=== PATIENT | female | born 1935 | race African-American/Black ===

== ENCOUNTER → 2017-08-24 | Outpatient (CLI) | payer MEDICARE, OTHER ==
--- NOTE | 2017-08-24 14:48 | RADIOLOGY REPORT (SQ) ---
EXAM DESCRIPTION: CT CHEST WITHOUT COMPLETED DATE/TIME: 08/24/2017 10:21 am REASON FOR STUDY: R07.9 CHEST PAIN Z87.891 PERSONAL HISTORY OF NICOTINE DEPENDENCE J44.9 CHRONIC O BSTRUCTIVE PULMONARY DISEASE, UNSPECIFIED Z12.2 ENCNTR SCREEN FOR MALIGNANT NEOPLASM OF RESPIRATORY OR COMPARISON: CT chest 11/13/2014, 02/07/2014 TECHNIQUE: CT scan performed of the chest without intravenous contrast. Images reviewed with lung, soft tissue and bone windows. Reconstructed coronal and sagittal MPR images reviewed. All images st ored on PACS. All CT scanners at this facility use dose modulation, iterative reconstruction, and/or weight based d osing when appropriate to reduce radiation dose to as low as reasonably achievable (ALARA). [facility]: Dose Right [facility]: CareDose [facility]: Dose Right [facility]: Teradose 4D [facility]: Smart Modern Feed RADIATION DOSE: CT Rad equipment meets quality standard of care and radiation dose reduction techniq ues were employed. CTDIvol: 5.8 mGy. DLP: 233 mGy-cm. mGy. LIMITATIONS: No technical limitations. 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 This is unchanged from prior CT chest exams 11/13/2014 and 02/07/2014. No acute infiltrates. No pleural effusions. No pneumothorax. HILAR AND MEDIASTINAL STRUCTURES: No identified masses or abnormal nodes. No obvious aneurysm. HEART AND VASCULAR STRUCTURES: Ascending aorta 4.4 cm in diameter. Calcified aortic valve. Findings could indicate aortic stenosis and poststenotic dilatation. Findings are similar compared to prior studies UPPER ABDOMEN: No significant findings. Limited exam. THYROID AND OTHER SOFT TISSUES: No masses. No adenopathy. BONES: T8-9 disc space narrowing. No thoracic spine compression deformities HARDWARE: None in the chest. OTHER: No other significant findings. IMPRESSION: Calcified aortic valve with prominent ascending aorta. Findings could be seen in aortic stenosis. TECHNICAL DOCUMENTATION: JOB ID: [id number] Quality ID # [id number]: Final reports with documentation of one or more dose reduction techniques (e.g., Au tomated exposure control, adjustment of the mA and/or kV according to patient size, use of iterative reconstruction technique) 2010 [employer]- All Rights Reserved
== END ==
LOC: RAD 10:51
PROVIDERS: ATTEND Internal Medicine
DX: Z12.2 Encounter for screening for malignant neoplasm of respiratory organs (principal); R07.9 Chest pain, unspecified; Z87.891 Personal history of nicotine dependence
CPT/HCPCS: 71250

== ENCOUNTER 2018-06-29 11:42 | Day surgery (SDC) | payer MEDICARE ==
[2018-06-28 10:55] LABS: ABSOLUTE BASOPHILS # (AUTO) 0.1 10^3/uL (0.0-0.2); ABSOLUTE EOSINOPHILS # (AUTO) 0.4 10^3/uL (0.0-0.6); ABSOLUTE LYMPHOCYTES (AUTO) 2.1 10^3/uL (0.5-4.7); ABSOLUTE NEUT (AUTO) 6.1 10^3/uL (1.7-8.2); BASOPHILS % (AUTO) 0.7 % (0-2); EOSINOPHILS % (AUTO) 4.2 % (0-6); HEMATOCRIT 35.3 % (36.0-47.0); HEMOGLOBIN 11.6 g/dL (12.0-15.5); LYMPHOCYTES % (AUTO) 21.7 % (13-45); MEAN CORPUSCULAR HEMOGLOBIN 25.7 pg (27.0-33.4); MEAN CORPUSCULAR HGB CONC 32.8 g/dL (32.0-36.0); MEAN CORPUSCULAR VOLUME 78 fl (80-97); PLATELET COUNT 269 10^3/uL (150-450); RED CELL DISTRIBUTION WIDTH 15.5 % (11.5-14.0); SEGMENTED NEUTROPHILS % (AUTO) 63.4 % (42-78); TOTAL CELLS COUNTED % (AUTO) 100 %; WHITE BLOOD COUNT 9.6 10^3/uL (4.0-10.5)
[2018-06-28 11:19] LABS: ANION GAP 10 (5-19); BLOOD UREA NITROGEN 19 mg/dL (7-20); CALCIUM 10.4 mg/dL (8.4-10.2); CARBON DIOXIDE 32 mmol/L (22-30); CHLORIDE 97 mmol/L (98-107); GLUCOSE 103 mg/dL (75-110); POTASSIUM 3.7 mmol/L (3.6-5.0); SODIUM 138.7 mmol/L (137-145)
--- NOTE | 2018-06-28 22:00 | EKG REPORT ---
SEVERITY:- BORDERLINE ECG - SINUS RHYTHM ATRIAL PREMATURE COMPLEX BORDERLINE T WAVE ABNORMALITIES : Confirmed by: Colby Carlisle 28-Jun-2018 21:59:47
[~2018-06-29 11:42] MED LIST: ALBUTEROL SULFATE 0.083% NEB 2.5 MG/3 ML AMPUL NEB PRN; LACTATED RINGERS 1000 ML IV PRN; LIDOCAINE 0.5% INJ-PF (5 MG/ML) 50 ML SDV SUBCUT PRN
[2018-06-29] MEDS ORDERED: CEFAZOLIN 2 GM/D5W RTU 2 GM/50 ML RTUPB IV ONE (12:07)
--- NOTE | 2018-06-29 12:16 | RADIOLOGY REPORT (SQ) ---
EXAM DESCRIPTION: CHEST SINGLE VIEW COMPLETED DATE/TIME: 06/29/2018 12:04 pm REASON FOR STUDY: PREOP COMPARISON: 04/15/2016. EXAM PARAMETERS: NUMBER OF VIEWS: One view. TECHNIQUE: Single frontal radiographic view of the chest acquired. RADIATION DOSE: NA LIMITATIONS: None. FINDINGS: LUNGS AND PLEURA: Questionable faint 1 cm nodule in the right upper lobe, overlapping the posterior right 4th rib. Otherwise clear. No infiltrates. No pleural effusion or pneumothorax. MEDIASTINUM AND HILAR STRUCTURES: No masses. Contour normal. HEART AND VASCULAR STRUCTURES: Heart normal in size. Normal vasculature. BONES: No acute findings. HARDWARE: None in the chest. OTHER: No other significant finding. IMPRESSION: NO ACUTE RADIOGRAPHIC FINDING IN THE CHEST. THERE IS A QUESTIONABLE NODULE IN THE RIGHT UPPER LOBE. CONSIDER FOLLOW-UP WITH CT OF THE CHEST. TECHNICAL DOCUMENTATION: JOB ID: [id number] [employer]- All Rights Reserved Reading location - IP/workstation name: [email or web address]
[2018-06-29] MEDS ORDERED: LIDOCAINE 1% INJ-PF (10 MG/ML) 30 ML SDV ONE (13:16)
[2018-06-29] MEDS ORDERED: BUPIVACAINE HCL 0.5 % INJ/PF 30 ML SDV ONE (13:16)
[2018-06-29] MEDS ORDERED: FENTANYL CITRATE INJ/PF 100 MCG/2 ML AMPUL ONE (13:22)
[2018-06-29] MEDS ORDERED: MIDAZOLAM 2 MG/2 ML INJ ONE (13:22)
[2018-06-29] MEDS ORDERED: PROPOFOL INJ 200 MG/20 ML VIAL IV ONE (13:22)
[2018-06-29] MEDS ORDERED: FENTANYL CITRATE INJ/PF 100 MCG/2 ML AMPUL IV PRN ×3 (13:40)
[2018-06-29] MEDS ORDERED: DIPHENHYDRAMINE HCL 50 MG/ML VIAL IV PRN (13:40)
[2018-06-29] MEDS ORDERED: ONDANSETRON HCL INJ/PF 4 MG/2 ML SDV IV PRN ×2 (13:40→14:09)
[2018-06-29] MEDS ORDERED: HYDROCODONE/ACETAMINOPHEN 5-325 MG TABLET PO PRN (14:09)
--- NOTE | 2018-06-29 14:11 | Discharge Summary ---
Discharge Summary (SDC) - Discharge Final Diagnosis: Right carpal tunnel syndrome, middle trigger finger Date of Surgery: 06/29/18 Discharge Date: 06/29/18 Condition: Good Treatment or Instructions: Schedule Follow Up w/ Dr. Gio Callahan @ [facility] for Surgery to be seen in 10-14 days or as scheduled [place]: [place]: Bruce: May remove dressing on postop day #3, keep incision covered and dry. Ice and elevate May begin finger range of motion attempting to make full fist. Stool softener of choice when on pain medication. Prescriptions: Hydrocodone/Acetaminophen [[place] 5-325 mg Tablet] 1 tab PO Q6 PRN #20 tablet PRN Reason: Referrals: BIA CASTANEDA MD [Primary Care Provider] - Discharge Diet: As Tolerated Discharge Activity: No Lifting Over 10 Pounds, No Lifting/Push/Pulling Report the Following to Your Physician Immediately: Fever over 101 Degrees, Unusual Bleeding, Redness, Swelling, Warmth, Increased Soreness
--- NOTE | 2018-06-29 14:11 | Operative Report ---
Operative Report DATE OF SURGERY: 06/29/18 PREOPERATIVE DIAGNOSIS: Right carpal tunnel syndrome, middle trigger finger POSTOPERATIVE DIAGNOSIS: Same OPERATION: Right endoscopic carpal tunnel release. Right middle A1 ann marie release SURGEON: PETRA WALTERS ANESTHESIA: LMAC COMPLICATIONS: None ESTIMATED BLOOD LOSS: Minimal PROCEDURE: Indication for above procedure: Patient presented with numbness and tingling in the right hand along with catching and locking in the right middle finger. We discussed risks and benefits patient had electrodiagnostic testing evidence of carpal tunnel syndrome. We discussed treatment options including continued conservative management versus operative intervention given the severity of patient's symptoms decision was made to proceed with operative treatment. Procedure In Detail: Patient was seen and evaluated in the preoperative holding area. The RIGHT upper extremity was initialized and marked. Patient received Ancef IV for bacterial prophylaxis. Patient was taken back to the operative room where transferred operative table. Patient was then placed under MAC anesthesia. Once adequately anesthetized, a nonsterile tourniquet was placed on the upper extremity. A surgical team debriefing was performed ensuring all instrumentation was available, the surgical procedure was discussed with possible concerns reviewed. Skin was prepped with alcohol and 10cc of 1% lidocaine without epinephrine was injected locally and w/in carpal canal. The upper extremity was prepped with chlorhexidine and alcohol and draped in a sterile fashion. A timeout was done identifying correct patient, procedure and extremity everyone in attendance agree with this and verbalized no concerns.The extremity was then exsanguinated the tourniquet was inflated to 250 mmHg. A transverse skin incision was made just proximal to the wrist flexion crease ulnar to the palmaris longus. Blunt dissection was performed down to the palmaris longus tendon which was retracted radially. Deep to the palmaris longus tendon was the volar carpal ligament this was incised identifying the median nerve deep. With the use of a Howe elevator any soft tissue/synovium was freed from the undersurface of the transverse carpal ligament. The hook of hamate was identified ulnarly. The ConMed cannulas were then introduced beginning with #1 progressing to a #3 gently dilating the carpal canal. I then introduced the scope within the cannula and identified transverse carpal ligament ensuring the median nerve was not visualized within the cannula. I triangulated distally with a 25-gauge needle identifying the distal aspect of the transverse carpal ligament, to ensure protection of the superficial palmar arch. The arthroscopic knife was used to incise the transverse carpal ligament under direct visualization with the arthroscopic camera. Any excess transverse fibers that remained after the first past were carefully released with a repeat pass. The median nerve was then directly visualized radially without disruption. Once this was completed I placed the #3 dilator and assured I got complete release of the transverse carpal ligament without residual compression. The median nerve was directly visualized and free of any overlying compression. I then turned my attention to release of the volar antebrachial fascia proximally. Once again a Howe was used to open the wound and I proceeded with cannula #1 to #3. The arthroscope was introduced into the cannula and under direct visualization the volar antebrachial fascia was released. Once this was complete I copiusly irrigated the wound with normal saline. Skin was closed with interrupted 4-0 nylon suture. Longitudinal skin incision was made centered over the A1 ann marie of the Middle finger. The radial and ulnar neurovascular bundles were identified and retracted from the wound. The A1 ann marie was identified and incised. The A1 ann marie was released to the level of the A2 ann marie but not through the A2 ann marie. The palmar aponeurotic ann marie was released proximal to the A1 ann marie. Patient has evidence of significant fraying along the radial slip of the FDS. Thus the radial slip of the FDS was then resected. After completion there is no evidence of residual catching or locking.. The wound was then copiously irrigated with normal saline. Skin was closed with interrupted 4-0 nylon suture. Wound was dressed with Xeroform and a soft dressing. Sponge counts, instrument counts, needle counts counts were correct. Patient was then awoken from anesthesia. Transferred from the operating room table to the operating room stretcher. There was no intraoperative complications patient tolerated procedure well stable to PACU. Postoperative plan: Patient will follow-up as scheduled for wound check. They will call with any questions or concerns.
[2018-06-29] MEDS ORDERED: HYDROCODONE/ACETAMINOPHEN 5-325 MG TABLET ONE (14:44)
[2018-06-29 16:03] VITALS: BP 166/93
== END 2018-06-29 15:55 | disposition home or self-care (01) ==
LOC: OROUT 11:42
PROVIDERS: ATTEND Orthopaedic Surgery
DX: G56.01 Carpal tunnel syndrome, right upper limb (principal); M65.331 Trigger finger, right middle finger; M79.641 Pain in right hand; J45.909 Unspecified asthma, uncomplicated; I10 Essential (primary) hypertension; F17.210 Nicotine dependence, cigarettes, uncomplicated; Z79.899 Other long term (current) drug therapy; Z79.51 Long term (current) use of inhaled steroids
CPT/HCPCS: 93005; 36415; 85025; 80048; 71045; 93010; 29848; 26055; J2250; J3490 ×2; J3010; J2704; J0690; 1810

== ENCOUNTER 2018-07-22 12:23 | Emergency (ER) | payer MEDICARE ==
--- NOTE | 2018-07-22 13:58 | RADIOLOGY REPORT (SQ) ---
EXAM DESCRIPTION: WRIST LEFT 3 VIEWS COMPLETED DATE/TIME: 07/22/2018 1:48 pm REASON FOR STUDY: pain and swelling COMPARISON: None. NUMBER OF VIEWS: Three views. TECHNIQUE: AP, lateral, and oblique radiographic images acquired of the left wrist. LIMITATIONS: None. FINDINGS: MINERALIZATION: Osteopenia. BONES: Widening of the scapholunate distance. No definitive fracture. Degenerative changes of the 1 st metacarpal carpal joint. SOFT TISSUES: No soft tissue swelling. No foreign body. OTHER: No other significant finding. IMPRESSION: No fracture. Suspect ligamentous injury of the scapholunate ligament. TECHNICAL DOCUMENTATION: JOB ID: [id number] [employer]- All Rights Reserved Reading location - IP/workstation name: [email or web address]
[2018-07-22 14:00] LABS: ABSOLUTE BASOPHILS # (AUTO) 0.1 10^3/uL (0.0-0.2); ABSOLUTE EOSINOPHILS # (AUTO) 0.2 10^3/uL (0.0-0.6); ABSOLUTE LYMPHOCYTES (AUTO) 1.7 10^3/uL (0.5-4.7); ABSOLUTE MONOCYTES (AUTO) 1.4 10^3/uL (0.1-1.4); BASOPHILS % (AUTO) 0.7 % (0-2); EOSINOPHILS % (AUTO) 1.5 % (0-6); HEMATOCRIT 33.9 % (36.0-47.0); HEMOGLOBIN 11.3 g/dL (12.0-15.5); LYMPHOCYTES % (AUTO) 13.9 % (13-45); MEAN CORPUSCULAR HEMOGLOBIN 25.1 pg (27.0-33.4); MEAN CORPUSCULAR HGB CONC 33.2 g/dL (32.0-36.0); MEAN CORPUSCULAR VOLUME 76 fl (80-97); MONOCYTES % (AUTO) 11.3 % (3-13); PLATELET COUNT 399 10^3/uL (150-450); RED BLOOD COUNT 4.48 10^6/uL (3.72-5.28); RED CELL DISTRIBUTION WIDTH 14.6 % (11.5-14.0); SEGMENTED NEUTROPHILS % (AUTO) 72.6 % (42-78); TOTAL CELLS COUNTED % (AUTO) 100 %; WHITE BLOOD COUNT 12.4 10^3/uL (4.0-10.5)
--- NOTE | 2018-07-22 14:00 | RADIOLOGY REPORT (SQ) ---
EXAM DESCRIPTION: KNEE RIGHT 4 VIEWS COMPLETED DATE/TIME: 07/22/2018 1:48 pm REASON FOR STUDY: pain and swelling COMPARISON: None. NUMBER OF VIEWS: Four views. TECHNIQUE: AP, lateral, and both oblique radiographic images acquired of the right knee. LIMITATIONS: None. FINDINGS: MINERALIZATION: Osteopenia. BONES: No acute fracture or dislocation. No worrisome bone lesions. Prominent medial and lateral oste ophytes. JOINT: Joint effusion. OTHER: No other significant finding. IMPRESSION: Osteoarthritis. Large joint effusion. TECHNICAL DOCUMENTATION: JOB ID: [id number] [employer]- All Rights Reserved Reading location - IP/workstation name: [email or web address]
[2018-07-22 14:20] LABS: URIC ACID 3.7 mg/dL (2.5-7.5)
[2018-07-22 14:31] LABS: C-REACTIVE PROTEIN 150.1 mg/L (<10.0)
[2018-07-22 14:35] LABS: ERYTHROCYTE SEDIMENTATION RATE 53 mm/hr (0-30)
[2018-07-22] MEDS ORDERED: DEXAMETHASONE SOD PHOS INJ 10 MG/1 ML VIAL IM ONE (15:05)
[2018-07-22] MEDS ORDERED: CEFTRIAXONE INJ 1000 MG VIAL IM ONE (15:07)
--- NOTE | 2018-07-22 15:10 | ER Document Report ---
ED Extremity Problem, Lower - General Chief Complaint: Knee Pain Stated Complaint: KNEE PAIN Time Seen by Provider: 07/22/18 13:14 Mode of Arrival: Ambulatory Information source: Patient Notes: Patient is a 82-year-old female comes emergency room with her daughter complaining of right knee pain for 2 days and states that in the last 24 hours is gone to where she cannot walk on it at all. She denies any known trauma or falls. She has no history of gout. She also has a secondary complaint of left wrist pain. Again patient denies any history of trauma but has some swelling on the left wrist the dorsal aspect over by the third and fourth digits. Patient recently had right hand carpal tunnel release done by Dr. Walters about 3 weeks ago. TRAVEL OUTSIDE OF THE [place] IN LAST 30 DAYS: No - HPI Patient complains to provider of: Swelling. No: Injury Location: Knee Occurred: Other - 2 days ago Where: Home Onset/Duration: Gradual, Persistent, Worse Quality of pain: Achy, Sharp, Stabbing, Throbbing Severity: Moderate Pain Level: 3 Recent injury: No Associated symptoms: Other - Difficulty bearing weight Exacerbated by: Movement, Walking Relieved by: Elevation, Rest - Related Data Allergies/Adverse Reactions: No Known Drug Allergies Allergy (Verified 07/22/18 12:36) Past Medical History - General Information source: Patient, Relative - Social History Smoking Status: Current Every Day Smoker Cigarette use (# per day): Yes Chew tobacco use (# tins/day): No Smoking Education Provided: Yes Frequency of alcohol use: None Drug Abuse: None Family History: Reviewed & Not Pertinent Patient has suicidal ideation: No Patient has homicidal ideation: No - Past Medical History Cardiac Medical History: Reports: Hx Hypertension - meds since 1984 Denies: Hx Coronary Artery Disease, Hx Heart Attack Pulmonary Medical History: Reports: Hx Asthma - childhood, Hx Pneumonia Denies: Hx Bronchitis, Hx COPD, Hx Tuberculosis Neurological Medical History: Denies: Hx Cerebrovascular Accident, Hx Seizures Renal/ Medical History: Denies: Hx Peritoneal Dialysis Musculoskeletal Medical History: Reports Hx Arthritis - hands Past Surgical History: Reports: Hx Hysterectomy, Hx Orthopedic Surgery - R hand carpel tunnel. Denies: Hx Pacemaker - Immunizations Hx Diphtheria, Pertussis, Tetanus Vaccination: Yes Review of Systems - Review of Systems Constitutional: No symptoms reported EENT: No symptoms reported Cardiovascular: No symptoms reported Respiratory: No symptoms reported Gastrointestinal: No symptoms reported Genitourinary: No symptoms reported Female Genitourinary: No symptoms reported Musculoskeletal: See HPI, Joint pain, Joint swelling Skin: No symptoms reported Hematologic/Lymphatic: No symptoms reported Neurological/Psychological: No symptoms reported -: Yes All other systems reviewed and negative Physical Exam - Vital signs Vitals: Temp Pulse Resp BP Pulse Ox 98.1 F 93 16 126/79 H 95 07/22/18 12:36 07/22/18 12:36 07/22/18 12:36 07/22/18 12:36 07/22/18 12:36 Interpretation: Normal - Notes Notes: PHYSICAL EXAMINATION: GENERAL: Well-appearing, well-nourished and in no acute distress. Although somewhat uncomfortable appearing HEAD: Atraumatic, normocephalic. EYES: Pupils equal round and reactive to light, extraocular movements intact, conjunctiva are normal. NECK: Normal range of motion, supple without lymphadenopathy LUNGS: Breath sounds clear to auscultation bilaterally and equal. No wheezes rales or rhonchi. HEART: Regular rate and rhythm without murmur Female : deferred Musculoskeletal: Patient has 2 areas of concern first area and primary area of concern is her right knee. There is mild amount of swelling especially suprapatellar and tenderness in that same generalized area. Patient also has some tenderness along the lateral aspect of the right knee. She has decreased flexion but has nearly full extension may be 5 or 6 degrees of deficit on the extension. Patient is unable to fully flex the knee. She has a good vascular exam distal pulses 2+ as well as popliteal pulse 2+ and femoral pulses 2+. Patient has no laxity on any direction that we can find. And a negative anterior drawer. If she has good cap refill in the nailbeds of the toes of the right foot. Patient has some mild effusion below the patella there is no crepitus felt with patellar compression. It seems that floats fairly freely. The biggest source of fluid is suprapatellar. #2 dorsal aspect of patient's left wrist is 4-5 cm wide by 2-3 cm wide area of swelling that is moderately tender to palpation. Also when patient extends her wrist she has tenderness at the insertion sites of the flexor tendon, palpation along the tendon sheath also shows increased discomfort. And this only area is in the extensor tendons along the fourth and fifth digit area. NEUROLOGICAL: Cranial nerves grossly intact. Normal speech, normal gait. Normal sensory, motor exams PSYCH: Normal mood, normal affect. SKIN: Warm, Dry, normal turgor, no rashes or lesions noted. Course - Re-evaluation Re-evalutation: 07/22/18 15:08 Patient had 2 complaints when she came in her primary complaint was her right knee which swelled up overnight. And the second plate was 1 that her daughter pointed out was her left wrist. I am concerned that it is either an inflammatory arthritis versus a infectious type of an arthritis or septic arthritis. Patient looks too well for it to be a presentation of a infection I believe however working to cover with antibiotics until she can see the orthopedist. She currently sees Dr. Walters she had a carpal release on the right hand done 3 weeks ago so she has been in with the orthopedic group there and she will give him a call first thing in the morning. In the meantime we will cover her with some Decadron here in-house and Rocephin shot and I will also cover her with Keflex outpatient. - Vital Signs Vital signs: Temp Pulse Resp BP Pulse Ox 98.7 F 105 H 16 149/82 H 98 07/22/18 15:38 07/22/18 15:38 07/22/18 15:38 07/22/18 15:38 07/22/18 15:38 - Laboratory Result Diagrams: 07/22/18 13:45 Laboratory results interpreted by me: 07/22/18 07/22/18 13:45 13:45 WBC 12.4 H Hgb 11.3 L Hct 33.9 L MCV 76 L MCH 25.1 L RDW 14.6 H Absolute Neutrophils 9.0 H ESR 53 H C-Reactive Protein 150.1 H Procedures - Immobilization Right Knee Pre-Proc Neuro Vasc Exam: Normal Immobilizer type: Knee immobilizer Performed by: PCT Post-Proc Neuro Vasc Exam: Normal, Unchanged from pre-exam Alignment checked and good: Yes Notes: 07/22/18 15:41 Patient also had placed a left cock-up splint by the PCT. This is a pre- manufactured type Velcro that was applied by the tech it was checked by me on the left wrist and there was found to be in good position with good cap refill in the nailbeds of that hand after placement. This will give patient enough support until she can see orthopedist come tomorrow. Discharge - Discharge Clinical Impression: Effusion, right knee, Inflammatory arthritis of the right knee Degenerative joint disease of right knee Qualifiers: Osteoarthritis type: unspecified Qualified Code(s): M17.11 - Unilateral primary osteoarthritis, right knee Strain of wrist, left Qualifiers: Encounter type: initial encounter Qualified Code(s): S66.912A - Strain of unspecified muscle, fascia and tendon at wrist and hand level, left hand, initial encounter Injury of intercarpal ligament of left wrist without instability Qualifiers: Encounter type: initial encounter Qualified Code(s): S69.92XA - Unspecified injury of left wrist, hand and finger(s), initial encounter Septic arthritis of knee, right Qualifiers: Septic arthritis organism: due to unspecified organism Qualified Code(s): M00.9 - Pyogenic arthritis, unspecified Condition: Stable Disposition: HOME, SELF-CARE Instructions: Arthritis ([facility]), Knee Immobilizing Splint ([facility]), Oral Narcotic Medication ([facility]) Additional Instructions: As we discussed I am not sure exactly what is going on between your knee and its presentation with that related to the lab work. You do not look sick enough to be a infectious type presentation but will cover with antibiotics until you can see the orthopedist. I have also given a shot that should last in your system for a couple of days so you do not need to take any more steroids. We will use the knee immobilizer until you see the orthopedist. Only on do it to ice down the knee 3 times a day. You may continue to take ibuprofen or Tylenol for pain and discomfort along with your tramadol. Since you only have 4 foraminal pills left I will write you for an extension of that. Should you have any concerns or problems return to ER for a recheck. Prescriptions: Tramadol HCl [Ultram 50 mg Tablet] 50 mg PO Q6HP PRN #20 tablet PRN Reason: Cephalexin [Cephalexin 500 MG Tablet] 1 tab PO QID #40 tablet Forms: Elevated Blood Pressure Referrals: BIA CASTANEDA MD [Primary Care Provider] - Follow up as needed PETRA WALTERS DO [ACTIVE STAFF] - Follow up as needed
[2018-07-22 15:40] VITALS: BP 149/82
== END 2018-07-22 15:56 | disposition home or self-care (01) ==
LOC: ER 12:23
DX: M17.11 Unilateral primary osteoarthritis, right knee (principal); M00.9 Pyogenic arthritis, unspecified; M25.461 Effusion, right knee; S66.912A Strain of unspecified muscle, fascia and tendon at wrist and hand level, left hand, initial encounter; X58.XXXA Exposure to other specified factors, initial encounter; Z98.890 Other specified postprocedural states; F17.210 Nicotine dependence, cigarettes, uncomplicated; I10 Essential (primary) hypertension
CPT/HCPCS: 99284; 96372; 36415; 84550; 85025; 85652; 86140; 73564; 73110; L1830; L3908 ×2; J0696; J1100; L3650

== ENCOUNTER 2018-08-06 07:30 | Observation (INO) | payer MEDICARE ==
--- NOTE | 2018-08-06 07:47 | ER Document Report ---
ED General - General Stated Complaint: POSSIBLE ALLERGIC REACTION Time Seen by Provider: 08/06/18 07:36 TRAVEL OUTSIDE OF THE [place] IN LAST 30 DAYS: No - HPI Notes: Patient is an 82-year-old female with a history of hypertension and arthritis who presents to the ED complaining of lower lip swelling that she noticed when she woke up this morning. Patient states that her only new medicine was a supplement about 1 week ago and tramadol about 3 weeks ago that she takes as needed. There was shellfish product in the supplement, but has not had any other allergy symptom. She is otherwise been able to eat and drink without any difficulties. She is able to swallow. She is urinating normally. Denies IV drug abuse. No other concerns or complaints at this time. Denies any headache , fever, head injury, neck pain, changes in vision/speech/mentation/hearing, excessive drooling, hoarseness, URI, sore throat, chest pain, palpitations, syncope, cough, shortness of breath, wheeze, dyspnea, abdominal pain, nausea/ vomiting/diarrhea, urinary retention, dysuria, hematuria, loss of control of bowel or bladder, numbness/tingling, muscle paralysis/weakness, or rash. - Related Data Allergies/Adverse Reactions: No Known Drug Allergies Allergy (Verified 07/22/18 12:36) shellfish derived Adverse Reaction (Verified 08/06/18 07:57) Past Medical History - Social History Smoking Status: Never Smoker Family History: Reviewed & Not Pertinent - Past Medical History Cardiac Medical History: Reports: Hx Hypertension - meds since 1984 Denies: Hx Coronary Artery Disease, Hx Heart Attack Pulmonary Medical History: Reports: Hx Asthma - childhood, Hx Pneumonia Denies: Hx Bronchitis, Hx COPD, Hx Tuberculosis Neurological Medical History: Denies: Hx Cerebrovascular Accident, Hx Seizures Renal/ Medical History: Denies: Hx Peritoneal Dialysis Musculoskeletal Medical History: Reports Hx Arthritis - hands Past Surgical History: Reports: Hx Hysterectomy, Hx Orthopedic Surgery - R hand carpel tunnel. Denies: Hx Pacemaker - Immunizations Hx Diphtheria, Pertussis, Tetanus Vaccination: Yes Review of Systems - Review of Systems -: Yes All other systems reviewed and negative Physical Exam - Vital signs Vitals: Temp Pulse Resp BP Pulse Ox 98.4 F 80 17 113/73 98 08/06/18 08:23 08/06/18 08:23 08/06/18 08:23 08/06/18 08:23 08/06/18 08:23 - Notes Notes: PHYSICAL EXAMINATION: GENERAL: Well-appearing, well-nourished and in no acute distress. A&Ox4. Answers questions appropriately. Moves comfortably w/o notable distress HEAD: Atraumatic, normocephalic. EYES: Pupils equal round and reactive to light, extraocular movements intact, sclera anicteric, conjunctiva are normal. ENT: EAC clear b/l. TM's intact b/l without erythema, fluid, or perforation. Nares patent and without discharge. oropharynx no erythema without exudates. 1 + tonsilar hypertrophy without erythema or exudate. No palatine shift. Uvula midline. No tongue protrusion. No drooling, hoarseness, or airway compromise. Moist mucous membranes. No sinus tenderness. + lower lip swelling. No other angioedema noted. NECK: Normal range of motion, supple without lymphadenopathy. No rigidity/ meningismus. LUNGS: Breath sounds clear to auscultation bilaterally and equal. No wheezes rales or rhonchi. No retractions HEART: Regular rate and rhythm without murmurs, rubs, gallops. ABDOMEN: Soft, nontender, nondistended abdomen. No guarding, no rebound. No masses appreciated. Normal bowel sounds present. No CVA tenderness bilaterally. No hepatosplenomegaly. NEUROLOGICAL: Normal speech, normal gait. Normal sensory, motor exams PSYCH: Normal mood, normal affect. SKIN: Warm, Dry, normal turgor, no rashes or lesions noted. Course - Re-evaluation Re-evalutation: 08/06/18 07:52 Pt has already received Benadryl 50mg IV. We will add solumedrol and pepcid IV. Reviewed with Dr. Reid who is in agreement with plan. We will observe for approx 3 hours and assess for changes throughout. If she remains improved/ stable, we will discharge, but if any worsening swelling she will be admitted. Pt in agreement. 08/06/18 11:16 Dr. Reid spoke with the patient and eval'd her and pt states that her tongue feels somewhat "thick." We will call her PCM Dr. Castaneda and place in obs. Pt in agreement. 08/06/18 11:[address] Castaneda who accepted pt for obs in tele bed. - Vital Signs Vital signs: Temp Pulse Resp BP Pulse Ox 98.4 F 80 17 113/73 98 08/06/18 08:23 08/06/18 08:23 08/06/18 08:23 08/06/18 08:23 08/06/18 08:23 Discharge - Discharge Clinical Impression: Angioedema Qualifiers: Encounter type: initial encounter Qualified Code(s): T78.3XXA - Angioneurotic edema, initial encounter Condition: Stable Disposition: ADMITTED INPATIENT Admitting Provider: [facility] Admitted: Telemetry Instructions: Angioedema ([facility]) Referrals: BIA CASTANEDA MD [Primary Care Provider] - 08/08/18
[2018-08-06] MEDS ORDERED: METHYLPREDNISOLONE INJ 125 MG/2 ML SDV IV ONE (07:50)
[2018-08-06] MEDS ORDERED: FAMOTIDINE INJ/PF 20 MG/2 ML SDV IV ONE (07:51)
[2018-08-06] MEDS ORDERED: NORMAL SALINE 1000 ML 1,000 ML IV ONE (07:53)
[2018-08-06] MEDS ORDERED: ALBUTEROL SULFATE HFA (90 MCG/PUFF) 8 GM MDI (1 MDI/ER DISP) IH PRN (19:38)
[2018-08-06] MEDS ORDERED: (PENDING PHARMACY ID) (Clonidine Hcl [Clonidine Hcl] 0.3 MG) PO SCH (19:45)
[2018-08-06] MEDS ORDERED: HCTHIAZID PO SCH (19:45)
[2018-08-06] MEDS ORDERED: [UNRECOGNIZED DRUG - OTHER] PO SCH (19:45)
[2018-08-06] MEDS ORDERED: AMLODIPIN PO SCH (19:45)
[2018-08-06] MEDS ORDERED: ALBUTEROL SULFATE HFA (90 MCG/PUFF) 200 PUFF/8.5 GM MDI IH PRN (19:45)
[2018-08-06] MEDS ORDERED: OLMESARTAN PO SCH (19:45)
[2018-08-06] MEDS ORDERED: LOSARTAN POTASSIUM 50 MG TABLET PO SCH (20:00)
[2018-08-06] MEDS ORDERED: HYDROCHLOROTHIAZIDE 25 MG TABLET PO SCH (20:00)
[2018-08-06] MEDS ORDERED: AMLODIPINE BESYLATE 10 MG TABLET PO SCH (20:00)
[2018-08-06 20:37] LABS: ABSOLUTE LYMPHOCYTES (AUTO) 0.7 10^3/uL (0.5-4.7); ABSOLUTE MONOCYTES (AUTO) 0.3 10^3/uL (0.1-1.4); ABSOLUTE NEUT (AUTO) 9.2 10^3/uL (1.7-8.2); BASOPHILS % (AUTO) 0.2 % (0-2); HEMATOCRIT 28.7 % (36.0-47.0); HEMOGLOBIN 9.7 g/dL (12.0-15.5); MEAN CORPUSCULAR HEMOGLOBIN 25.2 pg (27.0-33.4); MEAN CORPUSCULAR HGB CONC 33.6 g/dL (32.0-36.0); MEAN CORPUSCULAR VOLUME 75 fl (80-97); MONOCYTES % (AUTO) 2.5 % (3-13); PLATELET COUNT 370 10^3/uL (150-450); RED BLOOD COUNT 3.83 10^6/uL (3.72-5.28); RED CELL DISTRIBUTION WIDTH 15.5 % (11.5-14.0); SEGMENTED NEUTROPHILS % (AUTO) 90.3 % (42-78); TOTAL CELLS COUNTED % (AUTO) 100 %; WHITE BLOOD COUNT 10.2 10^3/uL (4.0-10.5)
[2018-08-06 20:54] LABS: ALANINE AMINOTRANSFERASE 21 U/L (9-52); ALBUMIN 3.4 g/dL (3.5-5.0); ALKALINE PHOSPHATASE 93 U/L (38-126); ANION GAP 13 (5-19); ASPARTATE AMINO TRANSFERASE 22 U/L (14-36); BILIRUBIN,DIRECT 0.3 mg/dL (0.0-0.4); BILIRUBIN,TOTAL 0.3 mg/dL (0.2-1.3); BLOOD UREA NITROGEN 18 mg/dL (7-20); CALCIUM 9.8 mg/dL (8.4-10.2); CARBON DIOXIDE 28 mmol/L (22-30); CHLORIDE 97 mmol/L (98-107); GLUCOSE 170 mg/dL (75-110); POTASSIUM 4.1 mmol/L (3.6-5.0); SODIUM 138.3 mmol/L (137-145); TOTAL PROTEIN 6.2 g/dL (6.3-8.2)
--- NOTE | 2018-08-06 21:48 | PDOC H&P ---
History of Present Illness Admission Date/PCP: 08/06/18 12:06 BIA CASTANEDA MD History of Present Illness: RONALDO CORADO is a 82 year old female, She has history of chronic obstructive lung disease, hypertension, she came to the emergency room because of severe angioneurotic edema affecting the lips on the tongue, she was evaluated treated in the emergency room, the emergency room physician want admitted for observation because of the concern that she may develop angioneurotic edema of the airway that could compromise her airway.She also has severe arthropathy of the right knee, she is having difficulty bearing weight on the right knee. MRI of the right knee demonstrated complete tear of the ACL, high-grade partial thickness tear versus full-thickness tear of the PCL. The medial and the lateral collateral ligament. There is complete maceration and tearing of the body of the medial meniscus, with extrusion into the medial gutter. Lateral meniscus appears grossly intact. There is high-grade cartilage loss along the weightbearing medial femoral condyle and opposing tibial plateau also found was a large knee joint effusion Past Medical History Cardiac Medical History: Reports: Hypertension Pulmonary Medical History: Reports: Asthma, Bronchitis, Pneumonia Musculoskeltal Medical History: Reports: Arthritis Hematology: Denies: Anemia Past Surgical History Past Surgical History: Reports: Hysterectomy, Orthopedic Surgery - R hand carpel tunnel Social History Smoking Status: Current Every Day Smoker Hx Recreational Drug Use: No Drugs: None Hx Prescription Drug Abuse: No - Advance Directive Resuscitation Status: Do Not Resuscitate Family History Family History: Reviewed & Not Pertinent Parental Family History Reviewed: Yes Children Family History Reviewed: Yes Sibling(s) Family History Reviewed.: Yes Medication/Allergy Home Medications: Albuterol Sulfate [Proair HFA] 2 puff IH Q4HP PRN 04/22/16 Clonidine HCl 0.3 mg PO TID 04/22/16 Olmesartan/Amlodipin/Hcthiazid [Kyrlyxr-Idgxsw-Mkpr 40-10-25Mg] 1 tab PO DAILY 08/06/18 Acetaminophen 500 mg PO Q8H #90 tablet 08/08/18 Tramadol HCl [Ultram 50 mg Tablet] 50 mg PO Q8H PRN #90 08/08/18 Allergies/Adverse Reactions: No Known Drug Allergies Allergy (Verified 07/22/18 12:36) shellfish derived Adverse Reaction (Verified 08/06/18 07:57) Review of Systems Constitutional: ABSENT: chills, fever(s), headache(s), weight gain, weight loss Eyes: ABSENT: visual disturbances Ears: ABSENT: hearing changes Cardiovascular: ABSENT: chest pain, dyspnea on exertion, edema, orthropnea, palpitations Respiratory: ABSENT: cough, hemoptysis Gastrointestinal: ABSENT: abdominal pain, constipation, diarrhea, hematemesis, hematochezia, nausea, vomiting Genitourinary: ABSENT: dysuria, hematuria Musculoskeletal: PRESENT: joint swelling Integumentary: ABSENT: rash, wounds Neurological: ABSENT: abnormal gait, abnormal speech, confusion, dizziness, focal weakness, syncope Psychiatric: ABSENT: anxiety, depression, homidical ideation, suicidal ideation Endocrine: ABSENT: cold intolerance, heat intolerance, menstrual abnormalities, polydipsia, polyuria Hematologic/Lymphatic: ABSENT: easy bleeding, easy bruising, lymphadenopathy Physical Exam Vital Signs: Temp Pulse Resp BP Pulse Ox 98.1 F 93 17 133/71 H 94 08/06/18 20:24 08/06/18 20:24 08/06/18 20:24 08/06/18 20:24 08/06/18 20:24 Intake & Output 08/05/18 08/06/18 08/07/18 06:59 06:59 06:59 Weight 64.4 kg General appearance: PRESENT: no acute distress, well-developed, well-nourished Head exam: PRESENT: atraumatic, normocephalic Eye exam: PRESENT: conjunctiva pink, EOMI, PERRLA Ear exam: PRESENT: normal external ear exam Mouth exam: PRESENT: moist, tongue midline Neck exam: PRESENT: full ROM Cardiovascular exam: PRESENT: RRR, +S1, +S2 GI/Abdominal exam: PRESENT: normal bowel sounds, soft Rectal exam: PRESENT: deferred Extremities exam: PRESENT: joint swelling, other - There is swelling of the right knee joint with limitation of range of motion Neurological exam: PRESENT: alert, CN II-XII grossly intact Skin exam: PRESENT: dry, intact, warm Results Laboratory Results: 08/06/18 20:25 08/06/18 20:25 08/06/18 08/06/18 20:25 20:25 WBC 10.2 RBC 3.83 Hgb 9.7 L Hct 28.7 L MCV 75 L MCH 25.2 L MCHC 33.6 RDW 15.5 H Plt Count 370 Seg Neutrophils % 90.3 H Lymphocytes % 7.0 L Monocytes % 2.5 L Eosinophils % 0.0 Basophils % 0.2 Absolute Neutrophils 9.2 H Absolute Lymphocytes 0.7 Absolute Monocytes 0.3 Absolute Eosinophils 0.0 Absolute Basophils 0.0 Sodium 138.3 Potassium 4.1 Chloride 97 L Carbon Dioxide 28 Anion Gap 13 BUN 18 Creatinine 0.85 Est GFR ( Amer) > 60 Est GFR (Non-Af Amer) > 60 Glucose 170 H Calcium 9.8 Total Bilirubin 0.3 AST 22 ALT 21 Alkaline Phosphatase 93 Total Protein 6.2 L Albumin 3.4 L Assessment & Plan - Diagnosis (1) Angioneurotic edema, initial encounter Is this a current diagnosis for this admission?: Yes Plan: The etiology is not clear (2) Arthropathy of right knee Is this a current diagnosis for this admission?: Yes Plan: Obtain MRI of the knee
[2018-08-06] MEDS ORDERED: LOSARTAN POTASSIUM 50 MG TABLET PO ONE (22:30)
[2018-08-06] MEDS ORDERED: HYDROCHLOROTHIAZIDE 25 MG TABLET PO ONE (22:30)
[2018-08-06] MEDS: CLONIDINE HCL 0.2 MG TABLET PO SCH (22:37)
[2018-08-06] MEDS ORDERED: AMLODIPINE BESYLATE 10 MG TABLET PO ONE (23:00)
--- NOTE | 2018-08-06 23:09 | RADIOLOGY REPORT (SQ) ---
MR LOWER EXTREMITY JOINT WITHOUT IV CONTRAST HISTORY: Knee pain. COMPARISON: Radiograph dated 07/22/2018 TECHNIQUE: Multiplanar, multisequence MR imaging of the right knee was performed without the administration of intravenous gadolinium. FINDINGS: The study is markedly limited due to motion artifact. There is discontinuity of the ACL fibers suggesting complete tear. There is also high-grade partial-thickness tear versus full-thickness tear of the PCL fibers. The medial and lateral collateral ligament complexes and the insertion of the popliteus tendon. There is complete maceration and tearing of the body of the medial meniscus, with extrusion into the medial gutter. Lateral meniscus appears grossly intact, although the root ligaments are not well seen due to motion. There is high grade cartilage loss along the weightbearing medial femoral condyle and opposing tibial plateau. There is relatively less cartilage loss with thinning of the lateral and patellofemoral compartments. Evaluation is very limited due to motion artifact. The extensor mechanism is maintained. There is mild edema in both the suprapatellar and infrapatellar fat pads. There is no stress fracture or osteonecrosis. A large knee joint effusion, as well as a Beltrán's cyst, with synovitis is seen. IMPRESSION: Very limited study due to motion artifact. 1. Findings suggesting complete tear of the ACL. There is also at least a high-grade partial-thickness tear of the PCL. 2. Maceration and tearing of the body of the medial meniscus with extrusion into the medial gutter. High-grade cartilage loss of the medial compartment is seen. 3. No definite fracture line is seen. 4. Large knee joint effusion and Beltrán's cyst, with synovitis.
[2018-08-07] MEDS: CLONIDINE HCL 0.2 MG TABLET PO SCH ×3 (06:18→21:40)
[2018-08-07] MEDS: NICOTINE 21 MG/24 HR PATCH.TD24 TD SCH (17:41)
--- NOTE | 2018-08-07 19:50 | RADIOLOGY REPORT (SQ) ---
EXAM DESCRIPTION: KNEE RIGHT 2 VIEWS COMPLETED DATE/TIME: 08/07/2018 5:02 pm REASON FOR STUDY: R KNEE PAIN/SWELLING D50.9 IRON DEFICIENCY ANEMIA, UNSPECIFIED COMPARISON: None. NUMBER OF VIEWS: Four views. TECHNIQUE: AP, lateral, and both oblique radiographic images acquired of the right knee. LIMITATIONS: None. FINDINGS: MINERALIZATION: Normal. BONES: Mild narrowing of the medial compartment with marginal osteophytes. JOINT: A joint effusion is present. SOFT TISSUES: No soft tissue swelling. No radio-opaque foreign body. OTHER: No other significant finding. IMPRESSION: Degenerative joint disease. Joint effusion. The findings are consistent with the findi ngs on the MRI from 08/06/2018. TECHNICAL DOCUMENTATION: JOB ID: [id number] [employer]- All Rights Reserved Reading location - IP/workstation name: [email or web address]
[2018-08-07] MEDS: TRAMADOL HCL 50 MG TABLET PO PRN (21:42)
[2018-08-07] MEDS ORDERED: AMLODIPINE BESYLATE 10 MG TABLET PO SCH (22:00)
[2018-08-07] MEDS ORDERED: LOSARTAN POTASSIUM 50 MG TABLET PO SCH (22:00)
[2018-08-07] MEDS ORDERED: HYDROCHLOROTHIAZIDE 25 MG TABLET PO SCH (22:00)
[2018-08-08] MEDS: CLONIDINE HCL 0.2 MG TABLET PO SCH ×2 (05:01→13:07)
[2018-08-08] MEDS: NICOTINE 21 MG/24 HR PATCH.TD24 TD SCH (09:04)
[2018-08-08] MEDS: TRAMADOL HCL 50 MG TABLET PO PRN (13:07)
[2018-08-08 14:24] VITALS: BP 118/68
--- NOTE | 2018-08-08 16:55 | PDOC DISCHARGE SUMMARY ---
General - Admit/Disc Date/PCP Admission Date/Primary Care Provider: 08/06/18 12:06 BIA CASTANEDA MD Discharge Date: 08/08/18 - Discharge Diagnosis (1) Angioneurotic edema, initial encounter Is this a current diagnosis for this admission?: Yes (2) Arthropathy of right knee Is this a current diagnosis for this admission?: Yes - Additional Information Resuscitation Status: Do Not Resuscitate Discharge Diet: As Tolerated Discharge Activity: Activity As Tolerated, Balance Activity w/Rest Prescriptions: Acetaminophen 500 mg PO Q8H #90 tablet Home Medications: Albuterol Sulfate [Proair HFA] 2 puff IH Q4HP PRN 04/22/16 Clonidine HCl 0.3 mg PO TID 04/22/16 Olmesartan/Amlodipin/Hcthiazid [Dqgbfvj-Tbwhwx-Gcfd 40-10-25Mg] 1 tab PO DAILY 08/06/18 Acetaminophen 500 mg PO Q8H #90 tablet 08/08/18 Tramadol HCl [Ultram 50 mg Tablet] 50 mg PO Q8H PRN #90 08/08/18 History of Present Illness History of Present Illness: RONALDO CORADO is a 82 year old female, She has history of chronic obstructive lung disease, hypertension, she came to the emergency room because of severe angioneurotic edema affecting the lips on the tongue, she was evaluated treated in the emergency room, the emergency room physician want admitted for observation because of the concern that she may develop angioneurotic edema of the airway that could compromise her airway.She also has severe arthropathy of the right knee, she is having difficulty bearing weight on the right knee. MRI of the right knee demonstrated complete tear of the ACL, high-grade partial thickness tear versus full-thickness tear of the PCL. The medial and the lateral collateral ligament. There is complete maceration and tearing of the body of the medial meniscus, with extrusion into the medial gutter. Lateral meniscus appears grossly intact. There is high-grade cartilage loss along the weightbearing medial femoral condyle and opposing tibial plateau also found was a large knee joint effusion Hospital Course Hospital Course: Patient was admitted for the management of angioedema of the lips and tongue she also was managed for right knee arthropathy. MRI of the right knee was done , demonstrated severe pathology of the knee affecting multiple structures of the right knee. She was seen by orthopedic Dr. Small, arthrocentesis was done 4 cc of synovial fluid was collected. Physical Exam Vital Signs: Temp Pulse Resp BP Pulse Ox 98.2 F 72 22 H 118/68 95 08/08/18 16:14 08/08/18 16:14 08/08/18 16:14 08/08/18 16:14 08/08/18 16:14 Intake & Output 08/07/18 08/08/18 08/09/18 06:59 06:59 06:59 Intake Total 1467 Balance 1467 Weight 67.3 kg 67.3 kg General appearance: PRESENT: no acute distress Head exam: PRESENT: atraumatic, normocephalic Eye exam: PRESENT: conjunctiva pink, EOMI, PERRLA Ear exam: PRESENT: normal external ear exam Mouth exam: PRESENT: moist, tongue midline Neck exam: PRESENT: full ROM Respiratory exam: PRESENT: clear to auscultation olivier Cardiovascular exam: PRESENT: RRR, +S1, +S2 Vascular exam: PRESENT: normal capillary refill GI/Abdominal exam: PRESENT: normal bowel sounds, soft Rectal exam: PRESENT: deferred Extremities exam: PRESENT: joint swelling - Right knee swelling, other Musculoskeletal exam: PRESENT: other - Right knee swelling Neurological exam: PRESENT: alert, CN II-XII grossly intact Skin exam: PRESENT: dry, intact, warm Results Laboratory Results: 08/06/18 20:25 08/06/18 20:25 Impressions: Lower Extremity MRI 08/06/18 00:00 IMPRESSION: Very limited study due to motion artifact. 1. Findings suggesting complete tear of the ACL. There is also at least a high-grade partial-thickness tear of the PCL. 2. Maceration and tearing of the body of the medial meniscus with extrusion into the medial gutter. High-grade cartilage loss of the medial compartment is seen. 3. No definite fracture line is seen. 4. Large knee joint effusion and Beltrán's cyst, with synovitis. Knee X-Ray 08/07/18 00:00 IMPRESSION: Degenerative joint disease. Joint effusion. The findings are consistent with the findings on the MRI from 08/06/2018. Qualifiers - * PATIENT BEING DISCHARGED WITH ANY OF THE FOLLOWING DIAGNOSIS: No
== END 2018-08-08 16:37 | disposition home or self-care (01) ==
LOC: ER 07:30 → EH 12:06 → INTOOBSV 12:06 → 5 16:28
PROVIDERS: ADMIT Internal Medicine; ATTEND Hospitalist
DX: T78.3XXA Angioneurotic edema, initial encounter (principal); M13.861 Other specified arthritis, right knee; I10 Essential (primary) hypertension; J44.9 Chronic obstructive pulmonary disease, unspecified; M25.461 Effusion, right knee; R26.89 Other abnormalities of gait and mobility; M71.21 Synovial cyst of popliteal space [Baker], right knee; M65.88 Other synovitis and tenosynovitis, other site; F17.200 Nicotine dependence, unspecified, uncomplicated; Z79.899 Other long term (current) drug therapy; Z66 Do not resuscitate; Z91.013 Allergy to seafood
CPT/HCPCS: 99285; 96361; 96374; 96375; 36415; 85025; 80053; 73721; 73560; G0378 ×4; A9270 ×9; J2930; J7030; S0028; J3490

== ENCOUNTER 2018-09-17 20:19 | Emergency (ER) | payer MEDICARE ==
[2018-09-17 21:24] LABS: ABSOLUTE BASOPHILS # (AUTO) 0.1 10^3/uL (0.0-0.2); ABSOLUTE EOSINOPHILS # (AUTO) 0.1 10^3/uL (0.0-0.6); ABSOLUTE LYMPHOCYTES (AUTO) 1.8 10^3/uL (0.5-4.7); ABSOLUTE MONOCYTES (AUTO) 1.6 10^3/uL (0.1-1.4); BASOPHILS % (AUTO) 0.7 % (0-2); EOSINOPHILS % (AUTO) 0.7 % (0-6); HEMATOCRIT 30.6 % (36.0-47.0); HEMOGLOBIN 9.7 g/dL (12.0-15.5); LYMPHOCYTES % (AUTO) 11.5 % (13-45); MEAN CORPUSCULAR HEMOGLOBIN 23.3 pg (27.0-33.4); MEAN CORPUSCULAR HGB CONC 31.8 g/dL (32.0-36.0); MEAN CORPUSCULAR VOLUME 73 fl (80-97); MONOCYTES % (AUTO) 10.2 % (3-13); PLATELET COUNT 409 10^3/uL (150-450); RED BLOOD COUNT 4.18 10^6/uL (3.72-5.28); RED CELL DISTRIBUTION WIDTH 19.3 % (11.5-14.0); SEGMENTED NEUTROPHILS % (AUTO) 76.9 % (42-78); TOTAL CELLS COUNTED % (AUTO) 100 %; WHITE BLOOD COUNT 15.6 10^3/uL (4.0-10.5)
[2018-09-17 21:41] LABS: ALANINE AMINOTRANSFERASE 36 U/L (9-52); ALBUMIN 3.9 g/dL (3.5-5.0); ALKALINE PHOSPHATASE 151 U/L (38-126); ANION GAP 7 (5-19); ASPARTATE AMINO TRANSFERASE 35 U/L (14-36); BILIRUBIN,DIRECT 0.1 mg/dL (0.0-0.4); BILIRUBIN,TOTAL 0.5 mg/dL (0.2-1.3); BLOOD UREA NITROGEN 18 mg/dL (7-20); CALCIUM 9.9 mg/dL (8.4-10.2); CARBON DIOXIDE 32 mmol/L (22-30); CHLORIDE 97 mmol/L (98-107); GLUCOSE 124 mg/dL (75-110); LIPASE 207.9 U/L (23-300); POTASSIUM 3.6 mmol/L (3.6-5.0); SODIUM 135.6 mmol/L (137-145); TOTAL PROTEIN 6.9 g/dL (6.3-8.2)
[2018-09-17] MEDS ORDERED: ONDANSETRON HCL INJ/PF 4 MG/2 ML SDV IV ONE (22:41)
[2018-09-17] MEDS ORDERED: MORPHINE SULFATE 10 MG/ML INJ IV ONE (22:41)
[2018-09-18 01:04] LABS: APPEARANCE,URINE SLIGHTLY-CLOUDY; BILIRUBIN,URINE NEGATIVE (NEGATIVE); COLOR,URINE YELLOW; GLUCOSE, URINE NEGATIVE (NEGATIVE); KETONES,URINE NEGATIVE (NEGATIVE); LEUKOCYTE ESTERASE,URINE SMALL (NEGATIVE); NITRITE,URINE NEGATIVE (NEGATIVE); PROTEIN,URINE NEGATIVE (NEGATIVE); URINE SPECIFIC GRAVITY 1.015
[2018-09-18] MEDS ORDERED: NORMAL SALINE 1000 ML 1,000 ML IV ONE (02:10)
--- NOTE | 2018-09-18 02:17 | RADIOLOGY REPORT (SQ) ---
CLINICAL HISTORY: periumbilical pain with vomiting COMPARISON: None. TECHNIQUE: CT ABDOMEN PELVIS WITH IV CONTRAST on 09/18/2018 12:00 AM [employer]ONT [employer] This exam was performed according to our departmental dose-optimization program, which includes automated exposure control, adjustment of the mA and/or kV according to patient size and/or use of iterative reconstruction technique. FINDINGS: There is dense atelectasis of the right middle lobe. Abdomen: The liver is normal in appearance. There is no biliary dilatation. Gallbladder is normally distended. The pancreas and spleen are normal in appearance. The adrenal glands and kidneys are unremarkable. Abdominal aorta is normal in course and caliber without aneurysm. There is no free air. There is no retroperitoneal adenopathy. Pelvis: There is large amount of stool throughout the colon. Urinary bladder is unremarkable. There is no free fluid. Hysterectomy was performed. Appendix is normal. Skeleton: There are no acute osseous findings. No suspicious bony lesions. IMPRESSION: Probable constipation. Incidental right middle lobe atelectasis. Nonemergent chest CT is recommended.
[2018-09-18] MEDS ORDERED: HYDROMORPHONE HCL INJ/PF 2 MG/ML AMPULE IV ONE (03:12)
--- NOTE | 2018-09-18 03:49 | ER Document Report ---
ED General - General Chief Complaint: Nausea/Vomiting Stated Complaint: NAUSEA/VOMITTING,KNEE PAIN Time Seen by Provider: 09/17/18 22:14 Notes: Patient is an 83-year-old female presents to the emergency department complaining of vomiting x2 today. Patient states she did have 4 episodes of diarrhea 4 days ago but has had no diarrhea since. Patient is complaining of generalized periumbilical abdominal pain along with her vomiting. Patient is also complaining of generalized bilateral knee pain. States her knee pain has been intermittent since May. States she does take tramadol from her knee pain but she does not believe that is helping. Patient's daughter is also in the room states patient is going in for right total knee replacement on October 08. Daughter is very concerned that the patient's knee pain has not been adequa tely treated and she would like pain medication for the patient. Past medical history: Hypertension Medications: Tramadol, HCTZ, clonidine, Celebrex, Tylenol Allergies: Shellfish TRAVEL OUTSIDE OF THE [place] IN LAST 30 DAYS: No - Related Data Allergies/Adverse Reactions: No Known Drug Allergies Allergy (Verified 07/22/18 12:36) shellfish derived Adverse Reaction (Verified 08/06/18 07:57) Past Medical History - General Information source: Patient, Relative - Social History Smoking Status: Current Every Day Smoker Chew tobacco use (# tins/day): No Frequency of alcohol use: None Drug Abuse: None Family History: Reviewed & Not Pertinent Patient has suicidal ideation: No Patient has homicidal ideation: No - Past Medical History Cardiac Medical History: Reports: Hx Hypertension Denies: Hx Coronary Artery Disease, Hx Heart Attack Pulmonary Medical History: Reports: Hx Asthma, Hx Bronchitis, Hx Pneumonia Denies: Hx COPD, Hx Tuberculosis Neurological Medical History: Denies: Hx Cerebrovascular Accident, Hx Seizures Renal/ Medical History: Denies: Hx Peritoneal Dialysis Musculoskeletal Medical History: Reports Hx Arthritis Past Surgical History: Reports: Hx Hysterectomy, Hx Orthopedic Surgery - R hand carpel tunnel. Denies: Hx Pacemaker - Immunizations Hx Diphtheria, Pertussis, Tetanus Vaccination: Yes Review of Systems - Review of Systems Constitutional: See HPI EENT: See HPI Cardiovascular: See HPI Respiratory: See HPI Gastrointestinal: No symptoms reported Genitourinary: No symptoms reported Female Genitourinary: See HPI Musculoskeletal: See HPI Skin: No symptoms reported Hematologic/Lymphatic: No symptoms reported Neurological/Psychological: No symptoms reported Physical Exam - Vital signs Vitals: Temp Pulse Resp BP Pulse Ox 99.2 F 120 H 16 141/70 H 96 09/17/18 20:26 09/17/18 20:26 09/17/18 20:26 09/17/18 20:26 09/17/18 20:26 - Notes Notes: GENERAL: Alert, interacts well. No acute distress. HEAD: Normocephalic, atraumatic. EYES: Pupils equal, round, and reactive to light. Extraocular movements intact. ENT: Oral mucosa moist, tongue midline. NECK: Full range of motion. Supple. Trachea midline. LUNGS: Clear to auscultation bilaterally, no wheezes, rales, or rhonchi. No respiratory distress. HEART: Tachycardic rate and rhythm. No murmur ABDOMEN: Soft, generalized periumbilical abdominal pain. No McBurney's point tenderness, no Enamorado sign noted. Non-distended. Bowel sounds present in all 4 quadrants. EXTREMITIES: Moves all 4 extremities spontaneously. No edema, normal radial and dorsalis pedis pulses bilaterally. No cyanosis. 5 out of 5 strength all 4 extremities. No ecchymosis or erythema noted bilateral anterior knees. Patient has pain upon gentle palpation anterior bilateral knees. Patient would not allow for valgus or varus, Kalli's test bilaterally. BACK: no cervical, thoracic, lumbar midline tenderness. No saddle anesthesia, normal distal neurovascular exam. NEUROLOGICAL: Alert and oriented x3. Normal speech. cranial nerves II through XII grossly intact PSYCH: Normal affect, normal mood. SKIN: Warm, dry, normal turgor. No rashes or lesions noted. Course - Re-evaluation Re-evalutation: 09/18/18 03:48 It is noted the patient uses a wheelchair to get around. I also reviewed neeraj bullock's admission documents from 08/06/2018. At that time patient did receive an MRI of her right lower extremity which did not show findings suggesting complete tear of the ACL and a high-grade partial-thickness tear of the PCL. Discussed this at length with patient's daughter who states she knows that the patient has had multiple injuries to bilateral knees. States no new injury to either knee. States patient does have an appointment for right total knee replacement on October 08 but the daughter does not think that the patient can make it to than just on tramadol alone. Discussed treating the patient in the emergency room for her chronic knee pain. Then also discussed following up with Dr. Castaneda for continued pain management until patient goes for surgery on October 08. Patient's has not vomited since treatments in the emergency room, her CT shows signs of constipation, discussed use of MiraLAX and increasing her water intake. 09/18/18 03:50 Patient's labs did show leukocytosis of 15.6, sodium of 135.6 which was treated in the emergency department with normal saline solution, patient has had no further episodes of vomiting after Zofran administration. Patient's urine shows no signs of urinary tract infection, sent for CX. 09/18/18 04:38 Patient's chest x-ray shows no signs of pneumonia, rib fractures, pneumothorax. - Vital Signs Vital signs: Temp Pulse Resp BP Pulse Ox 99.2 F 120 H 20 126/83 H 94 09/17/18 20:26 09/17/18 20:26 09/18/18 04:01 09/18/18 04:00 09/18/18 04:01 - Laboratory Result Diagrams: 09/17/18 21:15 09/17/18 21:15 Laboratory results interpreted by me: 09/17/18 09/17/18 09/18/18 21:15 21:15 00:50 WBC 15.6 H Hgb 9.7 L Hct 30.6 L MCV 73 L MCH 23.3 L MCHC 31.8 L RDW 19.3 H Lymphocytes % 11.5 L Absolute Neutrophils 12.0 H Absolute Monocytes 1.6 H Sodium 135.6 L Chloride 97 L Carbon Dioxide 32 H Glucose 124 H Alkaline Phosphatase 151 H Urine Urobilinogen 4.0 H Ur Leukocyte Esterase SMALL H Urine Ascorbic Acid 20 H Discharge - Discharge Clinical Impression: Constipation Qualifiers: Constipation type: other constipation type Qualified Code(s): K59.09 - Other constipation Knee pain, chronic Qualifiers: Laterality: bilateral Qualified Code(s): M25.561 - Pain in right knee; M25.562 - Pain in left knee; G89.29 - Other chronic pain Vomiting Qualifiers: Vomiting type: unspecified Vomiting Intractability: non-intractable Nausea presence: unspecified Qualified Code(s): R11.10 - Vomiting, unspecified Condition: Stable Disposition: HOME, SELF-CARE Instructions: Vomiting ([facility]), Intravenous (IV) Fluids ([facility]), Antinausea Medication ([facility]), Constipation ([facility]) Additional Instructions: As we discussed you have been seen and treated in the emergency department for your generalized abdominal pain and vomiting. You have also been given medication for your chronic knee pain. You need to follow-up with your primary care provider for continued pain management. Please take medications as prescribed because pain medication can continue making you constipated. Please return to the emergency room for any other concerning symptoms. Prescriptions: Ondansetron [Zofran Odt 4 mg Tablet] 1 - 2 tab PO Q4H PRN #15 tab.rapdis PRN Reason: For Nausea/Vomiting Polyethylene Glycol 3350 [Miralax] 1 cap PO DAILY #527 powder Referrals: BIA CASTANEDA MD [Primary Care Provider] - Follow up as needed
--- NOTE | 2018-09-18 04:32 | RADIOLOGY REPORT (SQ) ---
EXAM DESCRIPTION: XR CHEST 2 VIEWS COMPLETED DATE/TME: 09/18/2018 02:30 CLINICAL HISTORY: 83 years Female, cough COMPARISON:06/29/2018 NUMBER OF VIEWS/TECHNIQUE: 2, Frontal, Lateral FINDINGS: Increased lung volume, clear parenchyma, normal cardiac silhouette, and intact bony thorax. Atherosclerotic vascular disease. IMPRESSION: No acute cardiopulmonary findings.
[2018-09-18] MEDS ORDERED: HYDROCODONE/ACETAMINOPHEN 5-325 MG (6 TAB/ER DISP) PO PRN (04:38)
[2018-09-18 04:50] VITALS: BP 128/86
== END 2018-09-18 04:50 | disposition home or self-care (01) ==
LOC: ER 20:19
DX: K59.09 Other constipation (principal); M25.561 Pain in right knee; M25.562 Pain in left knee; R11.2 Nausea with vomiting, unspecified; R19.7 Diarrhea, unspecified; I10 Essential (primary) hypertension; Z91.013 Allergy to seafood; Z90.710 Acquired absence of both cervix and uterus
CPT/HCPCS: 99284; 96361; 96374; 96375; 36415; 83690; 85025; 80053; 81001; 71046; 74177; J2270; J1170; J2405; J7030; A9270

== ENCOUNTER → 2018-10-01 | Outpatient (CLI) | payer MEDICARE ==
[2018-10-01 11:42] LABS: ABSOLUTE EOSINOPHILS # (AUTO) 0.1 10^3/uL (0.0-0.6); ABSOLUTE LYMPHOCYTES (AUTO) 1.4 10^3/uL (0.5-4.7); ABSOLUTE NEUT (AUTO) 8.5 10^3/uL (1.7-8.2); BASOPHILS % (AUTO) 0.4 % (0-2); EOSINOPHILS % (AUTO) 1.1 % (0-6); HEMATOCRIT 26.4 % (36.0-47.0); HEMOGLOBIN 8.4 g/dL (12.0-15.5); LYMPHOCYTES % (AUTO) 12.7 % (13-45); MEAN CORPUSCULAR HEMOGLOBIN 22.6 pg (27.0-33.4); MEAN CORPUSCULAR VOLUME 71 fl (80-97); MONOCYTES % (AUTO) 8.8 % (3-13); PLATELET COUNT 641 10^3/uL (150-450); RED BLOOD COUNT 3.74 10^6/uL (3.72-5.28); RED CELL DISTRIBUTION WIDTH 19.7 % (11.5-14.0); TOTAL CELLS COUNTED % (AUTO) 100 %
[2018-10-01 11:51] LABS: APPEARANCE,URINE CLEAR; BILIRUBIN,URINE NEGATIVE (NEGATIVE); COLOR,URINE YELLOW; GLUCOSE, URINE NEGATIVE (NEGATIVE); KETONES,URINE NEGATIVE (NEGATIVE); LEUKOCYTE ESTERASE,URINE NEGATIVE (NEGATIVE); NITRITE,URINE NEGATIVE (NEGATIVE); PROTEIN,URINE NEGATIVE (NEGATIVE); URINE SPECIFIC GRAVITY 1.009
[2018-10-01 12:00] LABS: ANION GAP 10 (5-19); BLOOD UREA NITROGEN 10 mg/dL (7-20); CALCIUM 10.3 mg/dL (8.4-10.2); CARBON DIOXIDE 30 mmol/L (22-30); CHLORIDE 96 mmol/L (98-107); GLUCOSE 86 mg/dL (75-110); SODIUM 136.2 mmol/L (137-145)
--- NOTE | 2018-10-01 12:13 | RADIOLOGY REPORT (SQ) ---
EXAM DESCRIPTION: CHEST PA/LATERAL COMPLETED DATE/TIME: 10/01/2018 10:59 am REASON FOR STUDY: PRE-OP COMPARISON: 09/18/2018 EXAM PARAMETERS: NUMBER OF VIEWS: two views TECHNIQUE: Digital Frontal and Lateral radiographic views of the chest acquired. RADIATION DOSE: NA LIMITATIONS: none FINDINGS: LUNGS AND PLEURA: No opacities, masses or pneumothorax. No pleural effusion. MEDIASTINUM AND HILAR STRUCTURES: Stable. HEART AND VASCULAR STRUCTURES: Heart normal size. No evidence for failure. BONES: No acute findings. HARDWARE: None in the chest. OTHER: No other significant finding. IMPRESSION: No acute findings in the chest. TECHNICAL DOCUMENTATION: JOB ID: [id number] [employer]- All Rights Reserved Reading location - IP/workstation name: [email or web address]
--- NOTE | 2018-10-01 13:22 | EKG REPORT ---
SEVERITY:- BORDERLINE ECG - SINUS TACHYCARDIA PROBABLE LEFT ATRIAL ABNORMALITY BORDERLINE R WAVE PROGRESSION, ANTERIOR LEADS : Confirmed by: Cesar Ayala MD 01-Oct-2018 13:21:20
== END ==
LOC: OD 10:13
PROVIDERS: ATTEND Orthopaedic Surgery
DX: Z01.818 Encounter for other preprocedural examination (principal)
CPT/HCPCS: 36415; 71046; 80048; 81001; 85025; 93005; 93010

== ENCOUNTER 2018-12-27 08:13 | Outpatient (CLI) | payer MEDICARE ==
[~2018-12-27 08:13] MED LIST changes: -ALBUTEROL SULFATE 0.083% NEB 2.5 MG/3 ML AMPUL NEB PRN; +FERRIC CARBOXYMALTOSE 750 MG in NORMAL SALINE 250 ML IV PRN; -LACTATED RINGERS 1000 ML IV PRN; -LIDOCAINE 0.5% INJ-PF (5 MG/ML) 50 ML SDV SUBCUT PRN
[2018-12-27 08:37] VITALS: BP 131/74
== END 2018-12-27 09:14 | disposition home or self-care (01) ==
LOC: II 08:13 → 5TH 08:18 → II 09:14
PROVIDERS: ATTEND Internal Medicine
PROC: 3E033GC Introduction of Other Therapeutic Substance into Peripheral Vein, Percutaneous Approach (ICD-10-PCS; principal; 2018-12-27)
DX: D50.9 Iron deficiency anemia, unspecified (principal); K90.0 Celiac disease
CPT/HCPCS: 96365; J7050; J1439

== ENCOUNTER 2019-03-27 14:53 | Emergency (ER) | payer MEDICARE ==
[2019-03-27 16:01] VITALS: BP 137/63
--- NOTE | 2019-03-27 16:17 | ER Document Report ---
ED Medical Screen (RME) - General Chief Complaint: Constipation Stated Complaint: CONSTIPATION Time Seen by Provider: 03/27/19 16:06 Primary Care Provider: BIA CASTANEDA MD [Primary Care Provider] - Follow up as needed Mode of Arrival: Wheelchair Information source: Patient Notes: 83-year-old female presents to ED for abdominal pain and constipation for the la st 13 days. Family states she has had no stool at all in the last 13 days and when she did have a stool 13 days ago the family disimpacted her. She states she went to Dr. Castaneda last week and he ordered a colonoscopy prep which was not ready at the pharmacy until yesterday and the family has not picked it up yet because it was over $100. Patient is alert oriented respirations regular and unlabored speaking in full sentences. She does have a history of CHF COPD arthritis and needs a knee transplant but cannot do that because she is too anemic. She is on tramadol for the knee pain but she has slow transit of her bowels so the tramadol is causing the constipation to be much worse. I have greeted and performed a rapid initial assessment of this patient. A comprehensive ED assessment and evaluation of the patient, analysis of test results and completion of medical decision making process will be conducted by an additional ED providers. Dictation of this chart was performed using voice recognition software; therefore, there may be some unintended grammatical errors. TRAVEL OUTSIDE OF THE [place] IN LAST 30 DAYS: No - Related Data Allergies/Adverse Reactions: No Known Drug Allergies Allergy (Verified 03/27/19 16:03) shellfish derived Adverse Reaction (Verified 03/27/19 16:03) Past Medical History - Past Medical History Cardiac Medical History: Reports: Hx Hypertension Denies: Hx Coronary Artery Disease, Hx Heart Attack Pulmonary Medical History: Reports: Hx Asthma, Hx Bronchitis, Hx Pneumonia Denies: Hx COPD, Hx Tuberculosis Neurological Medical History: Denies: Hx Cerebrovascular Accident, Hx Seizures Renal/ Medical History: Denies: Hx Peritoneal Dialysis Musculoskeltal Medical History: Reports Hx Arthritis Past Surgical History: Reports: Hx Hysterectomy, Hx Orthopedic Surgery - R hand carpel tunnel. Denies: Hx Pacemaker - Immunizations Hx Diphtheria, Pertussis, Tetanus Vaccination: Yes History of Influenza Vaccine for 06/2017 - 11/2017 Season: No Physical Exam - Vital signs Vitals: Temp Pulse Resp BP Pulse Ox 98.0 F 110 H 18 137/63 H 97 03/27/19 15:58 03/27/19 15:58 03/27/19 15:58 03/27/19 15:58 03/27/19 15:58 Course - Vital Signs Vital signs: Temp Pulse Resp BP Pulse Ox 98.0 F 110 H 18 137/63 H 97 03/27/19 15:58 03/27/19 15:58 03/27/19 15:58 03/27/19 15:58 03/27/19 15:58 Doctor's Discharge - Discharge Referrals: BIA CASTANEDA MD [Primary Care Provider] - Follow up as needed
--- NOTE | 2019-03-27 16:47 | RADIOLOGY REPORT (SQ) ---
EXAM DESCRIPTION: KUB/ABDOMEN (SINGLE VIEW) COMPLETED DATE/TIME: 03/27/2019 4:38 pm REASON FOR STUDY: no bm in 13 days COMPARISON: 09/18/2018 NUMBER OF VIEWS: One view. TECHNIQUE: Supine radiographic image of the abdomen acquired. LIMITATIONS: None. FINDINGS: BOWEL GAS PATTERN: No pathologically dilated loops of bowel. Formed stool throughout the colon. CALCIFICATIONS: No suspicious calcifications. SOFT TISSUES: No gross mass or suggestion of organomegaly. HARDWARE: None in the abdomen. BONES: No acute fracture. No worrisome bone lesions. Decreased mineralization. Lower lumbar spondyl osis. OTHER: No other significant finding. IMPRESSION: No evidence of acute intra-abdominal/pelvic process. Formed stool throughout the colon. TECHNICAL DOCUMENTATION: JOB ID: [id number] [employer]- All Rights Reserved Reading location - IP/workstation name: [email or web address]
[2019-03-27 18:20] LABS: APPEARANCE,URINE SLIGHTLY-CLOUDY; BILIRUBIN,URINE NEGATIVE (NEGATIVE); COLOR,URINE YELLOW; GLUCOSE, URINE NEGATIVE (NEGATIVE); KETONES,URINE NEGATIVE (NEGATIVE); LEUKOCYTE ESTERASE,URINE NEGATIVE (NEGATIVE); NITRITE,URINE NEGATIVE (NEGATIVE); PROTEIN,URINE NEGATIVE (NEGATIVE); URINE SPECIFIC GRAVITY 1.014
== END 2019-03-27 19:03 | disposition left against medical advice (07) ==
LOC: ER 14:53
DX: K59.01 Slow transit constipation (principal); R10.9 Unspecified abdominal pain; I10 Essential (primary) hypertension; J44.9 Chronic obstructive pulmonary disease, unspecified; M25.569 Pain in unspecified knee; Z79.891 Long term (current) use of opiate analgesic; Z91.013 Allergy to seafood; Z53.20 Procedure and treatment not carried out because of patient's decision for unspecified reasons
CPT/HCPCS: 74018; 81001; 99281

== ENCOUNTER → 2019-09-11 | Outpatient (CLI) | payer MEDICARE ==
--- NOTE | 2019-09-11 16:57 | RADIOLOGY REPORT (SQ) ---
EXAM DESCRIPTION: CT CHEST WITHOUT COMPLETED DATE/TIME: 09/11/2019 8:22 am REASON FOR STUDY: PULMONARY NODULE (R91.1) R91.1 SOLITARY PULMONARY NODULE COMPARISON: None. TECHNIQUE: CT scan performed of the chest without intravenous contrast. Images reviewed with lung, soft tissue and bone windows. Reconstructed coronal and sagittal MPR images reviewed. All images st ored on PACS. All CT scanners at this facility use dose modulation, iterative reconstruction, and/or weight based d osing when appropriate to reduce radiation dose to as low as reasonably achievable (ALARA). [facility]: Dose Right [facility]: CareDose [facility]: Dose Right [facility]: Teradose 4D [facility]: Smart [employer] RADIATION DOSE: CT Rad equipment meets quality standard of care and radiation dose reduction techniq ues were employed. CTDIvol: 3.6 mGy. DLP: 153 mGy-cm. mGy. LIMITATIONS: No technical limitations. FINDINGS: LUNGS AND PLEURA: Mild paraseptal emphysema with bronchial wall thickening and upper lobe predominant reticulonodular opacities ; some of the discrete nodules have increased in size from the prior CT - these include the solid 5 mm nodule in the right upper lobe that previously measured 3 mm and the sub solid 5 mm perifissural nodule in the right lower lobe that previously measured 3 mm. Th ere are parenchymal bands in the lower lobes. There is no consolidation, pleural effusion or pneumot horax. HILAR AND MEDIASTINAL STRUCTURES: Evaluation is limited due to the absence of intravenous contrast. There are calcified left hilar lymph nodes. HEART AND VASCULAR STRUCTURES: The ascending thoracic aorta measures up to 4.[address] ter. The left ventricle is enlarged. There is no pericardial effusion. UPPER ABDOMEN: No acute findings. THYROID AND OTHER SOFT TISSUES: No masses or adenopathy. BONES: No acute finding. HARDWARE: None in the chest. OTHER: No other findings. IMPRESSION: Paraseptal emphysema with bronchial wall thickening and upper lobe predominant reticulon odular opacities. Some of the discrete nodules, which could be part of a chronic interstitial process , have increased in size from the prior CT. Consider continued annual CT surveillance. TECHNICAL DOCUMENTATION: JOB ID: [id number] Quality ID # [id number]: Final reports with documentation of one or more dose reduction techniques (e.g., Au tomated exposure control, adjustment of the mA and/or kV according to patient size, use of iterative reconstruction technique) 2010 [employer]- All Rights Reserved Reading location - IP/workstation name: [email or web address]
== END ==
LOC: RAD 07:59
PROVIDERS: ATTEND Internal Medicine Hematology & Oncology
DX: R91.1 Solitary pulmonary nodule (principal); J43.8 Other emphysema
CPT/HCPCS: 71250

== ENCOUNTER → 2019-11-08 | Outpatient (CLI) | payer MEDICARE ==
--- NOTE | 2019-11-08 10:46 | RADIOLOGY REPORT (SQ) ---
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 TECHNIQUE: Multiplanar imaging includes noncontrasted T1, T2, FLAIR, diffusion with ADC map and post gadolinium contrast T1 sequences. Images stored on PACS. CONTRAST TYPE AND DOSE: 10 mL Dotarem. RENAL FUNCTION: Not indicated. ACR Type II contrast agent associated with few, if any, unconfounded cases of NSF LIMITATIONS: None. FINDINGS: ANATOMY: No developmental anomalies. Normal vascular flow voids. Pituitary fossa normal. CSF SPACES: Normal in size and contour. No hemorrhage. CEREBRUM: No MR evidence of acute ischemic change, acute intracranial hemorrhage, mass effect, or mid line shift. There is extensive increased FLAIR/ T2 signal throughout the hemispheric white matter from chronic sm all vessel ischemic change. POSTERIOR FOSSA: Minimal chronic pontine small vessel ischemic change. No acute hemorrhage. No edema, masses, or mass effect. Internal auditory canals, cerebellopontine angles, mastoids normal. No enhan cing lesions. No abnormal enhancement post contrast. DIFFUSION IMAGING: Negative for acute or subacute infarction. ORBITS: No masses. Globes post cataract surgery bilaterally PARANASAL SINUSES: No fluid levels. Mucosa normal. OTHER: No other significant finding. IMPRESSION: Extensive small vessel ischemic change in the hemispheric white matter No acute findings EVIDENCE OF ACUTE STROKE: NO. TECHNICAL DOCUMENTATION: JOB ID: [id number] 2010 [employer]- All Rights Reserved Reading location - IP/workstation name: [email or web address]
== END ==
LOC: RAD 09:14
PROVIDERS: ATTEND Internal Medicine
DX: I63.9 Cerebral infarction, unspecified (principal)
CPT/HCPCS: 82565; 70553; A9576

== ENCOUNTER 2020-01-27 23:14 | Observation (INO) | payer MEDICARE ==
[2020-01-28 00:53] LABS: ABSOLUTE EOSINOPHILS # (AUTO) 0.2 10^3/uL (0.0-0.6); ABSOLUTE LYMPHOCYTES (AUTO) 1.7 10^3/uL (0.5-4.7); ABSOLUTE MONOCYTES (AUTO) 0.8 10^3/uL (0.1-1.4); ABSOLUTE NEUT (AUTO) 9.1 10^3/uL (1.7-8.2); BASOPHILS % (AUTO) 0.2 % (0-2); EOSINOPHILS % (AUTO) 1.6 % (0-6); HEMATOCRIT 28.7 % (36.0-47.0); HEMOGLOBIN 9.2 g/dL (12.0-15.5); LYMPHOCYTES % (AUTO) 14.7 % (13-45); MEAN CORPUSCULAR HEMOGLOBIN 22.1 pg (27.0-33.4); MEAN CORPUSCULAR VOLUME 69 fl (80-97); MONOCYTES % (AUTO) 6.8 % (3-13); PLATELET COUNT 407 10^3/uL (150-450); RED BLOOD COUNT 4.16 10^6/uL (3.72-5.28); RED CELL DISTRIBUTION WIDTH 22.1 % (11.5-14.0); SEGMENTED NEUTROPHILS % (AUTO) 76.7 % (42-78); TOTAL CELLS COUNTED % (AUTO) 100 %; WHITE BLOOD COUNT 11.9 10^3/uL (4.0-10.5)
[2020-01-28 01:21] LABS: ALBUMIN 3.2 g/dL (3.5-5.0); ALKALINE PHOSPHATASE 76 U/L (38-126); ANION GAP 12 (5-19); ASPARTATE AMINO TRANSFERASE 18 U/L (14-36); BILIRUBIN,TOTAL 0.3 mg/dL (0.2-1.3); BLOOD UREA NITROGEN 32 mg/dL (7-20); CALCIUM 9.7 mg/dL (8.4-10.2); CARBON DIOXIDE 24 mmol/L (22-30); CHLORIDE 103 mmol/L (98-107); CREATINE KINASE 28 U/L (30-135); GLUCOSE 114 mg/dL (75-110); TOTAL PROTEIN 6.8 g/dL (6.3-8.2)
[2020-01-28 01:33] LABS: CREATINE KINASE MB 0.42 ng/mL (<4.55)
[2020-01-28 01:47] LABS: TROPONIN I < 0.012 ng/mL
--- NOTE | 2020-01-28 03:48 | RADIOLOGY REPORT (SQ) ---
EXAM DESCRIPTION: XR CHEST 1 VIEW COMPLETED DATE/TME: 01/28/2020 01:53 CLINICAL HISTORY: 84 years, Female, syncope COMPARISON: 10/01/2018 chest NUMBER OF VIEWS: 1 TECHNIQUE: Portable chest LIMITATIONS: None. FINDINGS: The heart size is normal. Atheromatous change of the thoracic aorta. Osteopenia. COPD. Lungs clear. No pneumothorax IMPRESSION: COPD. Lungs are clear copyright 2010 [employer]- All Rights Reserved
--- NOTE | 2020-01-28 03:54 | RADIOLOGY REPORT (SQ) ---
EXAM DESCRIPTION: RadLex: CT HEAD WITHOUT IV CONTRAST CLINICAL HISTORY: 84 years Female; syncope vomiting; TECHNIQUE: Noncontrast CT head. All CT scans at this facility use dose modulation, iterative reconstruction, and/or weight based dosing when appropriate to reduce radiation dose to as low as reasonably achievable. COMPARISON: MRI 11/08/2019 FINDINGS: Low-density changes in the cerebral white matter bilaterally correspond to the chronic changes seen on previous exam. There is no acute hemorrhage or edema. No midline shift or mass effect. Cerebral atrophy is similar. Mucosal thickening in the right maxillary sinus has increased. There are no sinus air-fluid levels, however. No mastoid effusion. Visualized portions of the calvarium are within normal limits. IMPRESSION: 1. No acute intracranial findings. 2. Cerebral atrophy and chronic ischemic changes as on prior exam.
--- NOTE | 2020-01-28 04:36 | ER Document Report ---
ED General - General Chief Complaint: Syncope Stated Complaint: SYNCOPE,VOMITING TRAVEL OUTSIDE OF THE [place] IN LAST 30 DAYS: No - HPI Notes: 84-year-old female history of hypertension presents with episode of syncope just prior to arrival. Patient states that she was "not quite feeling well" and went to the bathroom but then syncopized without injury and had few episodes of vomiting afterwards and now feels improved. Patient had otherwise been feeling well recently. Patient denies any cardiac history, chest pain, shortness of breath, fever, head injury, neck pain, back pain, exertional symptoms, abdominal pain, urinary symptoms. - Related Data Allergies/Adverse Reactions: No Known Drug Allergies Allergy (Verified 03/27/19 16:03) shellfish derived Adverse Reaction (Verified 01/27/20 23:41) Past Medical History - General Information source: Patient - Social History Smoking Status: Never Smoker Family History: Reviewed & Not Pertinent Patient has homicidal ideation: No - Past Medical History Cardiac Medical History: Reports: Hx Congestive Heart Failure - as per prior jacob rt though pt and daughter deny, Hx Hypertension Denies: Hx Coronary Artery Disease, Hx Heart Attack Pulmonary Medical History: Reports: Hx Asthma, Hx Bronchitis, Hx Pneumonia Denies: Hx COPD, Hx Tuberculosis Neurological Medical History: Denies: Hx Cerebrovascular Accident, Hx Seizures Renal/ Medical History: Denies: Hx Peritoneal Dialysis Musculoskeletal Medical History: Reports Hx Arthritis Past Surgical History: Reports: Hx Hysterectomy, Hx Orthopedic Surgery - R hand carpel tunnel. Denies: Hx Pacemaker - Immunizations Hx Diphtheria, Pertussis, Tetanus Vaccination: Yes Review of Systems - Review of Systems Notes: REVIEW OF SYSTEMS: CONSTITUTIONAL : Denies fever, chills, or sweats. EENT: Denies recent cold/sinus symptoms, denies throat pain CARDIOVASCULAR: Denies chest pain, [place] RESPIRATORY: Denies cough, denies shortness of breath. GASTROINTESTINAL: Denies abdominal pain, +nausea/vomiting. GENITOURINARY: Denies difficulty urinating, painful urination. FEMALE GENITOURINARY: Denies abnormal vaginal bleeding, vaginal discharge. MUSCULOSKELETAL: Denies neck pain, back pain. SKIN: Denies rash or skin lesions. HEMATOLOGIC : Denies easy bruising or bleeding. LYMPHATIC: Denies swollen, enlarged glands. NEUROLOGICAL: Denies headache, denies change in gait. PSYCHIATRIC: Denies anxiety or stress or depression. Physical Exam - Vital signs Vitals: Resp 13 01/27/20 23:39 - Notes Notes: PHYSICAL EXAMINATION: GENERAL: Well-appearing, well-nourished, elderly woman lying in stretcher without any visible signs of discomfort HEAD: Atraumatic, normocephalic. EYES: Pupils equal round and appropriate constriction, sclera anicteric, conjunctiva are normal. ENT: nares patent, moist mucous membranes. NECK: Normal range of motion, supple without lymphadenopathy LUNGS: Breath sounds clear to auscultation bilaterally and equal. No wheezes rales or rhonchi. HEART: Regular rate and rhythm without murmurs ABDOMEN: Soft, nontender, no guarding, no masses, no CVAT EXTREMITIES: Normal range of motion, no pitting or edema. No cyanosis. No C-T-Lspinal tenderness or deformity, pelvis stable, no chest wall tenderness, no extremity tenderness on head to toe exam NEUROLOGICAL: Awake, alert, conversing appropriately, moves all extremities spontaneously. PSYCH: Normal mood, normal affect. SKIN: Warm, Dry, normal turgor, no rashes or lesions noted. Course - Re-evaluation Re-evalutation: 01/28/20 04:34 Syncope with vague symptoms, rule out ICH, ACS, symptomatic anemia, electrolyte abnormalities, arrhythmia. No significant EKG abnormalities, initial work-up without any emergent findings, negative troponin, negative CT head and chest x- ray, discussed case with. Patient's primary doctor Dr. Erwin who was patient to telemetry observation. Discussed patient's care with patient's daughter with the patient's permission, patient's daughter agreed with history that patient gave and had no other additions nor questions/concerns. - Vital Signs Vital signs: Temp Pulse Resp BP Pulse Ox 99.0 F 68 18 151/78 H 100 01/30/20 18:19 01/30/20 18:19 01/30/20 18:19 01/30/20 18:19 01/30/20 18:19 - Laboratory Result Diagrams: 01/28/20 00:40 01/28/20 00:40 Laboratory results interpreted by me: 01/28/20 01/28/20 00:40 00:40 WBC 11.9 H Hgb 9.2 L Hct 28.7 L MCV 69 L MCH 22.1 L RDW 22.1 H Absolute Neuts (auto) 9.1 H BUN 32 H Glucose 114 H Creatine Kinase 28 L Albumin 3.2 L - EKG Interpretation by Me Additional EKG results interpreted by me: 01/27/20 23:45 HR 68, sinus rhythm with PACs, no significant ST elevation or depression, QTc 430 Discharge - Discharge Clinical Impression: Syncope Qualifiers: Syncope type: unspecified Qualified Code(s): R55 - Syncope and collapse Condition: Good Disposition: ADMITTED OBSERVATION Admitting Provider: [facility] Unit Admitted: Telemetry
--- NOTE | 2020-01-28 07:28 | EKG REPORT ---
SEVERITY:- BORDERLINE ECG - SINUS RHYTHM ATRIAL PREMATURE COMPLEX BORDERLINE LEFT AXIS DEVIATION LOW VOLTAGE IN FRONTAL LEADS : Confirmed by: Cesar Ayala MD 28-Jan-2020 07:26:47
[2020-01-28 07:43] LABS: PHOSPHORUS 3.6 mg/dL (2.5-4.5)
[2020-01-28 07:58] LABS: FREE T4 (FREE THYROXINE) 1.44 ng/dL (0.78-2.19)
[2020-01-28 08:12] LABS: THYROID STIMULATING HORMONE 3.76 uIU/mL (0.47-4.68)
[2020-01-28 09:12] LABS: CREATINE KINASE MB 0.41 ng/mL (<4.55); TROPONIN I < 0.012 ng/mL
[2020-01-28] MEDS: HEPARIN SOD (PORCINE) 5,000 UNIT/ML 1 ML VIAL SUBCUT SCH ×3 (09:40→21:51)
[2020-01-28 13:41] LABS: TROPONIN I < 0.012 ng/mL
[2020-01-28 18:33] LABS: APPEARANCE,URINE CLEAR; BILIRUBIN,URINE NEGATIVE (NEGATIVE); COLOR,URINE YELLOW; GLUCOSE, URINE NEGATIVE (NEGATIVE); KETONES,URINE NEGATIVE (NEGATIVE); LEUKOCYTE ESTERASE,URINE NEGATIVE (NEGATIVE); NITRITE,URINE NEGATIVE (NEGATIVE); PROTEIN,URINE NEGATIVE (NEGATIVE); URINE SPECIFIC GRAVITY 1.015
--- NOTE | 2020-01-28 19:46 | NEURO WORKBENCH EEG REPORT ---
EEG Report Patient: Mauro Vasquez ID: [id number] Referring Doctor: Joe Erwin Date: 01/28/2020 Reason for study: Evaluate Epileptiform activity Medications: N/A History: This is a 84 year old female with a history of HTN, Asthma, CHF, and paralysis of the left hand. This EEG was requested for evaluation of epileptiform activity. EEG Interpretation: This EEG was recorded during wakefulness. The awake EEG is characterized by a well organized background with a well developed and reactive posterior dominant rhythm (PDR) of approximately 8 Hz. The remainder of the background consisted of low amplitude frontally predominant beta activity. The EEG is symmetric in amplitudes and frequencies. Photic stimulation resulted in photic driving, and there was no epileptiform activity elicited with photic stimulation There were no epileptiform abnormalities (no sharp waves and no spikes). There were no seizures. The EKG showed a rhythm of typically 60-80 beats per minute, with some arrhythmia noted. EEG Impression: This EEG is within normal limits for age. There was no epileptiform activity or seizures. A single normal routine EEG does not rule out the possibility of epilepsy. If there is high clinical suspicion for epilepsy, then additional EEG evaluation should be considered with a sleep-deprived EEG or more prolonged EEG monitoring. Some minor cardiac arrythmia was noted which warrants further cardiac evaluation. INTERPRETING NEUROLOGIST: Juan Carlos Kimble MD Board certified by the [employer] in Neurology, Clinical Neurophysiology, and Sleep Medicine [facility]
[2020-01-28 20:38] LABS: CREATINE KINASE MB 0.34 ng/mL (<4.55)
[2020-01-28 20:40] LABS: TROPONIN I < 0.012 ng/mL
[2020-01-28] MEDS ORDERED: TRAMADOL HCL 50 MG TABLET PO PRN (20:46)
[2020-01-28] MEDS ORDERED: [UNRECOGNIZED DRUG - OTHER] PO SCH (21:00)
[2020-01-28] MEDS ORDERED: HCTHIAZID PO SCH (21:00)
[2020-01-28] MEDS ORDERED: (PENDING PHARMACY ID) (Megestrol Acetate [Megestrol Acetate] 40 MG) PO SCH (21:00)
[2020-01-28] MEDS ORDERED: (PENDING PHARMACY ID) (Acetaminophen [Acetaminophen] 500 MG) PO SCH (21:00)
[2020-01-28] MEDS ORDERED: (PENDING PHARMACY ID) (Clonidine Hcl [Clonidine Hcl] 0.3 MG) PO SCH (21:00)
[2020-01-28] MEDS ORDERED: OLMESARTAN PO SCH (21:00)
[2020-01-28] MEDS ORDERED: AMLODIPIN PO SCH (21:00)
--- NOTE | 2020-01-28 21:00 | PDOC H&P ---
History of Present Illness Admission Date/PCP: 01/28/20 04:57 BIA CASTANEDA MD History of Present Illness: RONALDO CORADO is a 84 year old female,She came to the emergency room last night for evaluation of transient loss of consciousness associated with vomiting. The history was that she woke up from sleep, went to the bathroom, had episode of loss of consciousness, there was no antecedent chest pain, shortness of breath palpitation. 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 Patient has had this episode of transient loss of consciousness previously, seizure activity was suspected as a potential etiology previously before this episode. EEG was done today EEG was said to be within normal limits for age, a 2D echo was also done, 2D echo demonstrated hyperdynamic function of left ventricle with aortic valve stenosis.The loss of consciousness could be probably syncope especially with aortic valve stenosis, she has underlining dementia, COPD, she probably could benefit from transcatheter aortic valve replacement, consultation will requested from cardiology, I am not sure she will be a good candidate for this procedure Past Medical History Cardiac Medical History: Reports: Hypertension Pulmonary Medical History: Reports: Asthma, Bronchitis, Pneumonia Musculoskeltal Medical History: Reports: Arthritis Psychiatric Medical History: Reports: Dementia Hematology: Reports: Anemia Past Surgical History Past Surgical History: Reports: Hysterectomy, Orthopedic Surgery - R hand carpel tunnel Social History Smoking Status: Former Smoker Hx Recreational Drug Use: No Drugs: None Hx Prescription Drug Abuse: No Family History Family History: Reviewed & Not Pertinent Parental Family History Reviewed: Yes Children Family History Reviewed: Yes Sibling(s) Family History Reviewed.: Yes Medication/Allergy Home Medications: Clonidine HCl 0.3 mg PO DAILY 04/22/16 Olmesartan/Amlodipin/Hcthiazid [Iwtmouw-Bididg-Urmc 40-10-25Mg] 1 tab PO DAILY 08/06/18 Acetaminophen 500 mg PO Q8H #90 tablet 08/08/18 Megestrol Acetate 40 mg PO BID 01/27/20 Fluticasone/Umeclidin/Vilanter [Trelegy 100-62.5-25 Mcg Ellipta 14 Dose/Dpi] 1 puff PO DAILY 01/28/20 Tramadol HCl [Ultram 50 mg Tablet] 50 mg PO Q6HP PRN 01/28/20 Allergies/Adverse Reactions: No Known Drug Allergies Allergy (Verified 03/27/19 16:03) shellfish derived Adverse Reaction (Verified 01/27/20 23:41) Review of Systems Constitutional: ABSENT: chills, fever(s), headache(s), weight gain, weight loss Eyes: ABSENT: visual disturbances Ears: ABSENT: hearing changes Cardiovascular: ABSENT: chest pain, dyspnea on exertion, edema, orthropnea, palpitations Respiratory: ABSENT: cough, hemoptysis Gastrointestinal: PRESENT: vomiting. ABSENT: abdominal pain, constipation, diar david, hematemesis, hematochezia, nausea Genitourinary: ABSENT: dysuria, hematuria Musculoskeletal: ABSENT: joint swelling Integumentary: ABSENT: rash, wounds Neurological: PRESENT: syncope. ABSENT: abnormal gait, abnormal speech, confusion, dizziness, focal weakness Psychiatric: ABSENT: anxiety, depression, homidical ideation, suicidal ideation Endocrine: ABSENT: cold intolerance, heat intolerance, menstrual abnormalities, polydipsia, polyuria Hematologic/Lymphatic: ABSENT: easy bleeding, easy bruising, lymphadenopathy Physical Exam Vital Signs: Temp Pulse Resp BP Pulse Ox 99.7 F 100 16 161/98 H 100 01/28/20 19:34 01/28/20 19:34 01/28/20 19:34 01/28/20 19:34 01/28/20 19:34 Intake & Output 01/27/20 01/28/20 01/29/20 06:59 06:59 06:59 Intake Total 360 Balance 360 Weight 52.8 kg General appearance: PRESENT: no acute distress Head exam: PRESENT: atraumatic, normocephalic Eye exam: PRESENT: conjunctiva pink, EOMI, PERRLA Ear exam: PRESENT: normal external ear exam Mouth exam: PRESENT: moist, tongue midline Neck exam: PRESENT: full ROM Respiratory exam: PRESENT: clear to auscultation olivier Cardiovascular exam: PRESENT: RRR, +S1, +S2, systolic murmur Pulses: PRESENT: +2 pedal pulses bilateral Vascular exam: PRESENT: normal capillary refill GI/Abdominal exam: PRESENT: normal bowel sounds, soft Extremities exam: PRESENT: other - Deformity of the knees bilaterally Neurological exam: PRESENT: alert, CN II-XII grossly intact Psychiatric exam: PRESENT: appropriate affect, normal mood Skin exam: PRESENT: dry, intact, warm Results Laboratory Results: 01/28/20 00:40 01/28/20 00:40 01/28/20 01/28/20 01/28/20 00:40 00:40 00:40 WBC 11.9 H RBC 4.16 Hgb 9.2 L Hct 28.7 L MCV 69 L MCH 22.1 L MCHC 32.0 RDW 22.1 H Plt Count 407 Seg Neutrophils % 76.7 Sodium 138.5 Potassium 4.0 Chloride 103 Carbon Dioxide 24 Anion Gap 12 BUN 32 H Creatinine 0.82 Est GFR ( Amer) > 60 Glucose 114 H Calcium 9.7 Phosphorus 3.6 Magnesium 2.3 Total Bilirubin 0.3 AST 18 Alkaline Phosphatase 76 Total Protein 6.8 Albumin 3.2 L TSH Free T4 Urine Color Urine Appearance Urine pH Ur Specific [place] Urine Protein Urine Glucose (UA) Urine Ketones Urine Blood Urine Nitrite Ur Leukocyte Esterase Urine WBC (Auto) Urine RBC (Auto) 01/28/20 01/28/20 00:40 18:15 WBC RBC Hgb Hct MCV MCH MCHC RDW Plt Count Seg Neutrophils % Sodium Potassium Chloride Carbon Dioxide Anion Gap BUN Creatinine Est GFR ( Amer) Glucose Calcium Phosphorus Magnesium Total Bilirubin AST Alkaline Phosphatase Total Protein Albumin TSH 3.76 Free T4 1.44 Urine Color YELLOW Urine Appearance CLEAR Urine pH 7.0 Ur Specific [place] 1.015 Urine Protein NEGATIVE Urine Glucose (UA) NEGATIVE Urine Ketones NEGATIVE Urine Blood SMALL H Urine Nitrite NEGATIVE Ur Leukocyte Esterase NEGATIVE Urine WBC (Auto) 1 Urine RBC (Auto) 3 01/28/20 01/28/20 01/28/20 00:40 00:40 07:24 Creatine Kinase 28 L 28 L CK-MB (CK-2) 0.42 Troponin I < 0.012 01/28/20 01/28/20 01/28/20 07:24 12:51 12:51 Creatine Kinase 26 L CK-MB (CK-2) 0.41 0.40 Troponin I < 0.012 < 0.012 01/28/20 01/28/20 19:42 19:42 Creatine Kinase 21 L CK-MB (CK-2) 0.34 Troponin I < 0.012 Impressions: Head CT 01/28/20 01:24 IMPRESSION: 1. No acute intracranial findings. 2. Cerebral atrophy and chronic ischemic changes as on prior exam. Chest X-Ray 01/28/20 01:53 IMPRESSION: COPD. Lungs are clear copyright 2010 [employer]- All Rights Reserved Assessment & Plan - Diagnosis (1) Syncope Qualifiers: Syncope type: unspecified Qualified Code(s): R55 - Syncope and collapse Is this a current diagnosis for this admission?: Yes Plan: She has recurrent syncope episode with a background of aortic valve stenosis, consult cardiology (2) Aortic valve stenosis Qualifiers: Cardiac valve disease etiology: nonrheumatic Qualified Code(s): I35.0 - Nonrheumatic aortic (valve) stenosis Is this a current diagnosis for this admission?: Yes (3) COPD (chronic obstructive pulmonary disease) Qualifiers: COPD type: unspecified COPD Qualified Code(s): J44.9 - Chronic obstructive pulmonary disease, unspecified Is this a current diagnosis for this admission?: Yes (4) Bilateral primary osteoarthritis of knee Is this a current diagnosis for this admission?: Yes
[2020-01-28] MEDS: CLONIDINE HCL 0.1 MG TABLET PO SCH (21:50)
[2020-01-28] MEDS: ACETAMINOPHEN 325 MG TABLET PO SCH (21:50)
[2020-01-28] MEDS ORDERED: AMLODIPINE BESYLATE 10 MG TABLET PO SCH (22:00)
[2020-01-28] MEDS ORDERED: HYDROCHLOROTHIAZIDE 25 MG TABLET PO SCH (22:00)
[2020-01-28] MEDS ORDERED: LOSARTAN POTASSIUM 50 MG TABLET PO SCH (22:00)
[2020-01-28] MEDS: MEGESTROL ACETATE 20 MG TABLET PO SCH (23:24)
[2020-01-28] MEDS: FLUTICASONE/UMECLIDIN/VILANTER 100-62.5-25 MCG/DOSE IH SCH (23:25)
[2020-01-29] MEDS: ACETAMINOPHEN 325 MG TABLET PO SCH ×3 (05:42→21:13)
[2020-01-29] MEDS: HEPARIN SOD (PORCINE) 5,000 UNIT/ML 1 ML VIAL SUBCUT SCH ×3 (05:42→21:14)
[2020-01-29] MEDS: MEGESTROL ACETATE 20 MG TABLET PO SCH ×2 (10:13→21:13)
[2020-01-29] MEDS: METOPROLOL TARTRATE 50 MG TABLET PO SCH ×2 (10:14→21:14)
[2020-01-29] MEDS: FLUTICASONE/UMECLIDIN/VILANTER 100-62.5-25 MCG/DOSE IH SCH (10:14)
[2020-01-29] MEDS: CLONIDINE HCL 0.1 MG TABLET PO SCH (10:14)
--- NOTE | 2020-01-29 19:33 | PDOC PROGRESS REPORT ---
Subjective Progress Note for:: 01/29/20 Subjective:: Patient was admitted yesterday because of recurrent syncope with a background of aortic stenosis, consultation was requested from cardiology, she was admitted for observation, will be discharged home tomorrow. I was told the patient is still smoking despite continued poor health Reason For Visit: LOSS OF CONSIOUSNESS ? SYNCOPE, SEIZURE, ? PE Physical Exam Vital Signs: Temp Pulse Resp BP Pulse Ox 98.8 F 77 19 113/77 100 01/29/20 15:12 01/29/20 15:12 01/29/20 15:12 01/29/20 15:12 01/29/20 15:12 Intake & Output 01/28/20 01/29/20 01/30/20 06:59 06:59 06:59 Intake Total 810 354 Output Total 200 450 Balance 610 -96 Weight 52.8 kg 47.4 kg General appearance: PRESENT: no acute distress Eye exam: PRESENT: PERRLA Respiratory exam: PRESENT: clear to auscultation olivier Cardiovascular exam: PRESENT: +S1, +S2, systolic murmur GI/Abdominal exam: PRESENT: soft Results Laboratory Results: 01/28/20 00:40 01/28/20 00:40 01/28/20 01/28/20 01/28/20 00:40 00:40 07:24 Creatine Kinase 28 L 28 L CK-MB (CK-2) 0.42 Troponin I < 0.012 01/28/20 01/28/20 01/28/20 07:24 12:51 12:51 Creatine Kinase 26 L CK-MB (CK-2) 0.41 0.40 Troponin I < 0.012 < 0.012 01/28/20 01/28/20 19:42 19:42 Creatine Kinase 21 L CK-MB (CK-2) 0.34 Troponin I < 0.012 Impressions: Head CT 01/28/20 01:24 IMPRESSION: 1. No acute intracranial findings. 2. Cerebral atrophy and chronic ischemic changes as on prior exam. Chest X-Ray 01/28/20 01:53 IMPRESSION: COPD. Lungs are clear copyright 2010 [employer]- All Rights Reserved Assessment & Plan - Diagnosis (1) Syncope Qualifiers: Syncope type: unspecified Qualified Code(s): R55 - Syncope and collapse Is this a current diagnosis for this admission?: Yes (2) Aortic valve stenosis Qualifiers: Cardiac valve disease etiology: nonrheumatic Qualified Code(s): I35.0 - Nonrheumatic aortic (valve) stenosis Is this a current diagnosis for this admission?: Yes (3) COPD (chronic obstructive pulmonary disease) Qualifiers: COPD type: unspecified COPD Qualified Code(s): J44.9 - Chronic obstructive pulmonary disease, unspecified Is this a current diagnosis for this admission?: Yes (4) Bilateral primary osteoarthritis of knee Is this a current diagnosis for this admission?: Yes - Time Time Spent with patient: 25-34 minutes Level of Care: CU
[2020-01-29] MEDS: POLYETHYLENE GLYCOL 3350 POWDER 17 GM/1 PACKET PO SCH (20:21)
--- NOTE | 2020-01-29 21:45 | PDOC CONSULTATION ---
Consultation-Blank Consultation: CARDIOLOGY CONSULTATION by Dr. Meredith Yoon on 01/29/2020. Patient seen at 8 AM on 01/29/2020. Extremity spent with patient more than 50% time spent in direct patient care. REASON FOR CONSULTATION: While walking.. CONSULT REQUESTING PHYSICIAN: Dr. Erwin. HISTORY OF PRESENT ILLNESS: Patient is not a good historian due to dementia. History obtained from the chart and from the patient's daughter. As per the daughter the patient to her went to the bathroom and vomited without retching and subsequently had a syncopal episode lasting for a few seconds about 30 seconds or so. There was no witnessed seizure. It is difficult to a certain for the patient whether she had palpitations or chest pain or shortness of breath prior to or after the event. There was no postictal phase. The daughter states that about a week ago she had another episode of syncope while walking. There is no history of coronary artery disease. No history of diabetes mellitus. She has a history of hypertension. No history of TIA CVA. No history of seizure disorders. She has a history of asthma and COPD and history of recurrent bronchitis. None recently. No history of cough causing syncope. She has a history of dementia and hence it is difficult to obtain any history from the patient. Past Medical History Cardiac Medical History: Reports: Hypertension Pulmonary Medical History: Reports: Asthma, Bronchitis, Pneumonia Musculoskeltal Medical History: Reports: Arthritis Psychiatric Medical History: Reports: Dementia Hematology: Reports: Anemia Past Surgical History Past Surgical History: Reports: Hysterectomy, Orthopedic Surgery - R hand carpel tunnel Social History Smoking Status: Former Smoker Hx Recreational Drug Use: No Drugs: None Hx Prescription Drug Abuse: No Family History Family History: Reviewed & Not Pertinent Parental Family History Reviewed: Yes Children Family History Reviewed: Yes Sibling(s) Family History Reviewed.: Yes Medication/Allergy Home Medications: Clonidine HCl 0.3 mg PO DAILY 04/22/16 Olmesartan/Amlodipin/Hcthiazid [Wmawuqm-Dpqmwf-T[place] 40-10-25Mg] 1 tab PO DAILY 08/06/18 Acetaminophen 500 mg PO Q8H #90 tablet 08/08/18 Megestrol Acetate 40 mg PO BID 01/27/20 Fluticasone/Umeclidin/Vilanter [Trelegy 100-62.5-25 Mcg Ellipta 14 Dose/Dpi] 1 puff PO DAILY 01/28/20 Tramadol HCl [Ultram 50 mg Tablet] 50 mg PO Q6HP PRN 01/28/20 Allergies/Adverse Reactions: No Known Drug Allergies Allergy (Verified 03/27/19 16:03) shellfish derived Adverse Reaction (Verified 01/27/20 23:41) RESUSCITATION STATUS: The patient is a full code. Her daughter is her surrogate healthcare decision maker Review of Systems it is not very clear how reliable the patient's responses are due to the patient's dementia. Constitutional: ABSENT: chills, fever(s), headache(s), weight gain, weight loss Eyes: ABSENT: visual disturbances Ears: ABSENT: hearing changes Cardiovascular: ABSENT: chest pain, dyspnea on exertion, edema, orthropnea, palpitations Respiratory: ABSENT: cough, hemoptysis Gastrointestinal: PRESENT: vomiting. ABSENT: abdominal pain, constipation, diarrhea, hematemesis, hematochezia, nausea Genitourinary: ABSENT: dysuria, hematuria Musculoskeletal: ABSENT: joint swelling Integumentary: ABSENT: rash, wounds Neurological: PRESENT: syncope. ABSENT: abnormal gait, abnormal speech, confusion, dizziness, focal weakness Psychiatric: ABSENT: anxiety, depression, homidical ideation, suicidal ideation Endocrine: ABSENT: cold intolerance, heat intolerance, menstrual abnormalities, polydipsia, polyuria Hematologic/Lymphatic: ABSENT: easy bleeding, easy bruising, lymphadenopathy Current Medications Generic Name Dose Route Start Last Admin Trade Name Freq PRN Reason Stop Dose Admin Acetaminophen 487.5 mg 01/28/20 22:00 01/29/20 21:13 Tylenol 325 Mg Tablet PO 02/27/20 21:59 487.5 mg Q8 MAICO Administration Clonidine 0.3 mg 01/28/20 22:00 01/29/20 10:14 Catapres 0.1 Mg Tablet PO 02/27/20 21:59 0.3 mg DAILY MAICO Administration Fluticasone/Vilanterol 1 inh 01/28/20 22:00 01/29/20 10:14 Trelegy 100-62.5-25 Mcg Ellipta 14 Dose/Dpi IH 02/27/20 21:59 1 inh DAILY MAICO Administration Heparin Sodium (Porcine) 5,000 unit 01/28/20 07:15 01/29/20 21:14 Heparin Inj 5,000 Units/Ml 1 Ml Vial SUBCUT 02/27/20 07:14 5,000 unit Q8 MAICO Administration Megestrol Acetate 40 mg 01/28/20 22:00 01/29/20 21:13 Megace 20 Mg Tablet PO 02/27/20 21:59 40 mg Q12 MAICO Administration Metoprolol Tartrate 50 mg 01/29/20 10:00 01/29/20 21:14 Lopressor 50 Mg Tablet PO 02/28/20 09:59 50 mg Q12 MAICO Administration Nicotine 1 each 01/30/20 10:00 Nicoderm 21 Mg/24 Hr Transderm Patch TD 02/29/20 09:59 DAILY MAICO Polyethylene Glycol 17 gm 01/29/20 20:00 01/29/20 20:21 Miralax Powder 17 Gm/Packet PO 02/28/20 19:59 17 gm DAILY MAICO Administration Tramadol HCl 50 mg 01/28/20 20:46 Ultram 50 Mg Tablet PO 02/04/20 20:45 Q6HP PRN FOR PAIN Discontinued Medications Generic Name Dose Route Start Last Admin Trade Name Freq PRN Reason Stop Dose Admin Amlodipine Besylate 10 mg 01/28/20 22:00 01/28/20 21:49 Norvasc 10 Mg Tablet PO 02/27/20 21:59 10 mg DAILY MAICO Administration Hydrochlorothiazide 25 mg 01/28/20 22:00 01/28/20 21:52 Hydrodiuril 25 Mg Tablet PO 02/27/20 21:59 25 mg DAILY MAICO Administration Losartan Potassium 100 mg 01/28/20 22:00 01/28/20 21:51 Cozaar 50 Mg Tablet PO 02/27/20 21:59 100 mg DAILY MAICO Administration PHYSICAL EXAMINATION: The patient is a frail build but well-groomed in no acute distress. Selected Entries 01/29/20 07:13 Temperature 98.2 F Temperature Oral Source Pulse Rate 96 Respiratory 18 Rate Blood Pressure 152/83 H Blood Pressure 106 Mean BP Location Left Arm BP Position Supine O2 Sat by Pulse 97 Oximetry Oxygen Delivery Room Air Method HEAD: Is atraumatic normocephalic. EYES: Pupils are equal round regular reactive to light and accommodation. EARS: There is no inflammation of the tympanic membranes. External auditory canals are clear. NOSE: There is no deviated nasal septum. There is no inflammation nasal mucous membrane. MOUTH: Mucous membranes of the mouth are moist. Tongue is moist. There is no ulcers. There is no bleeding from gums. THROAT: There is no redness of the oropharynx. There is no exudates. SKIN: There is no petechia or ecchymosis. There is no skin lesions or skin rashes. NECK: Supple. There is no JVD. Carotids are equal there is no bruit. There is no lymphadenopathy. There is no goiter. There is no accessory muscle respiration use. Trachea central. LUNGS: Clear to auscultation percussion, without any rhonchi rales or wheezing. HEART: S1-S2 is heard. There is no S3 gallop. There is no S4 gallop. There is systolic murmur which is sharp in the left sternal border which increases in intensity with handgrip or Valsalva. There is aortic sclerosis murmur. A2 is preserved. There is no rub. There is no S3 or S4 gallop. ABDOMEN: Soft. Nontender. There is no hepatosplenomegaly. Bowel sounds are well heard. Extremities femorals are well felt. There is no femoral bruits. Leg pulses well felt. There is no pedal edema. There is no DVT or cellulitis. There is no cyanosis or clubbing. RESPITE COORDINATOR: The patient is confused but with no focal deficits. She is awake and alert. PSYCHIATRIC: The patient does not appear to be agitated or anxious. EKG:SINUS RHYTHM [APC] . ATRIAL PREMATURE COMPLEX [SHUBHAM] . BORDERLINE LEFT AXIS DEVIATION [LVOLF] . LOW VOLTAGE IN FRONTAL LEADS. Labs- Entire Visit 01/28/20 01/28/20 01/28/20 00:40 00:40 00:40 WBC 11.9 H RBC 4.16 Hgb 9.2 L Hct 28.7 L MCV 69 L MCH 22.1 L MCHC 32.0 RDW 22.1 H Plt Count 407 Lymph % (Auto) 14.7 [place] % (Auto) 6.8 Eos % (Auto) 1.6 Baso % (Auto) 0.2 Absolute Neuts (auto) 9.1 H Absolute Lymphs (auto) 1.7 Absolute Monos (auto) 0.8 Absolute Eos (auto) 0.2 Absolute Basos (auto) 0.0 Seg Neutrophils % 76.7 Sodium 138.5 Potassium 4.0 Chloride 103 Carbon Dioxide 24 Anion Gap 12 BUN 32 H Creatinine 0.82 Est GFR ( Amer) > 60 Est GFR (MDRD) Non-Af > 60 Glucose 114 H Hemoglobin A1c % Calcium 9.7 Phosphorus Magnesium Total Bilirubin 0.3 Direct Bilirubin 0.0 Neonat Total Bilirubin Not Reportable Neonat Direct Bilirubin Not Reportable Neonat Indirect Bili Not Reportable AST 18 ALT 16 Alkaline Phosphatase 76 Creatine Kinase 28 L CK-MB (CK-2) 0.42 Troponin I < 0.012 Total Protein 6.8 Albumin 3.2 L TSH Free T4 Urine Color Urine Appearance Urine pH Ur Specific [place] Urine Protein Urine Glucose (UA) Urine Ketones Urine Blood Urine Nitrite Urine Bilirubin Urine Urobilinogen Ur Leukocyte Esterase Urine WBC (Auto) Urine RBC (Auto) Squamous Epi Cells Auto Urine Ascorbic Acid 01/28/20 01/28/20 01/28/20 00:40 00:40 07:24 WBC RBC Hgb Hct MCV MCH MCHC RDW Plt Count Lymph % (Auto) [place] % (Auto) Eos % (Auto) Baso % (Auto) Absolute Neuts (auto) Absolute Lymphs (auto) Absolute Monos (auto) Absolute Eos (auto) Absolute Basos (auto) Seg Neutrophils % Sodium Potassium Chloride Carbon Dioxide Anion Gap BUN Creatinine Est GFR ( Amer) Est GFR (MDRD) Non-Af Glucose Hemoglobin A1c % Calcium Phosphorus 3.6 Magnesium 2.3 Total Bilirubin Direct Bilirubin Neonat Total Bilirubin Neonat Direct Bilirubin Neonat Indirect Bili AST ALT Alkaline Phosphatase Creatine Kinase 28 L CK-MB (CK-2) Troponin I Total Protein Albumin TSH 3.76 Free T4 1.44 Urine Color Urine Appearance Urine pH Ur Specific [place] Urine Protein Urine Glucose (UA) Urine Ketones Urine Blood Urine Nitrite Urine Bilirubin Urine Urobilinogen Ur Leukocyte Esterase Urine WBC (Auto) Urine RBC (Auto) Squamous Epi Cells Auto Urine Ascorbic Acid 01/28/20 01/28/20 01/28/20 07:24 12:51 12:51 WBC RBC Hgb Hct MCV MCH MCHC RDW Plt Count Lymph % (Auto) [place] % (Auto) Eos % (Auto) Baso % (Auto) Absolute Neuts (auto) Absolute Lymphs (auto) Absolute Monos (auto) Absolute Eos (auto) Absolute Basos (auto) Seg Neutrophils % Sodium Potassium Chloride Carbon Dioxide Anion Gap BUN Creatinine Est GFR ( Amer) Est GFR (MDRD) Non-Af Glucose Hemoglobin A1c % Calcium Phosphorus Magnesium Total Bilirubin Direct Bilirubin Neonat Total Bilirubin Neonat Direct Bilirubin Neonat Indirect Bili AST ALT Alkaline Phosphatase Creatine Kinase 26 L CK-MB (CK-2) 0.41 0.40 Troponin I < 0.012 < 0.012 Total Protein Albumin TSH Free T4 Urine Color Urine Appearance Urine pH Ur Specific [place] Urine Protein Urine Glucose (UA) Urine Ketones Urine Blood Urine Nitrite Urine Bilirubin Urine Urobilinogen Ur Leukocyte Esterase Urine WBC (Auto) Urine RBC (Auto) Squamous Epi Cells Auto Urine Ascorbic Acid 01/28/20 01/28/20 01/28/20 18:15 19:42 19:42 WBC RBC Hgb Hct MCV MCH MCHC RDW Plt Count Lymph % (Auto) [place] % (Auto) Eos % (Auto) Baso % (Auto) Absolute Neuts (auto) Absolute Lymphs (auto) Absolute Monos (auto) Absolute Eos (auto) Absolute Basos (auto) Seg Neutrophils % Sodium Potassium Chloride Carbon Dioxide Anion Gap BUN Creatinine Est GFR ( Amer) Est GFR (MDRD) Non-Af Glucose Hemoglobin A1c % Calcium Phosphorus Magnesium Total Bilirubin Direct Bilirubin Neonat Total Bilirubin Neonat Direct Bilirubin Neonat Indirect Bili AST ALT Alkaline Phosphatase Creatine Kinase 21 L CK-MB (CK-2) 0.34 Troponin I < 0.012 Total Protein Albumin TSH Free T4 Urine Color YELLOW Urine Appearance CLEAR Urine pH 7.0 Ur Specific [place] 1.015 Urine Protein NEGATIVE Urine Glucose (UA) NEGATIVE Urine Ketones NEGATIVE Urine Blood SMALL H Urine Nitrite NEGATIVE Urine Bilirubin NEGATIVE Urine Urobilinogen 4.0 H Ur Leukocyte Esterase NEGATIVE Urine WBC (Auto) 1 Urine RBC (Auto) 3 Squamous Epi Cells Auto <1 Urine Ascorbic Acid NEGATIVE 01/28/20 19:42 WBC RBC Hgb Hct MCV MCH MCHC RDW Plt Count Lymph % (Auto) [place] % (Auto) Eos % (Auto) Baso % (Auto) Absolute Neuts (auto) Absolute Lymphs (auto) Absolute Monos (auto) Absolute Eos (auto) Absolute Basos (auto) Seg Neutrophils % Sodium Potassium Chloride Carbon Dioxide Anion Gap BUN Creatinine Est GFR ( Amer) Est GFR (MDRD) Non-Af Glucose Hemoglobin A1c % 5.0 Calcium Phosphorus Magnesium Total Bilirubin Direct Bilirubin Neonat Total Bilirubin Neonat Direct Bilirubin Neonat Indirect Bili AST ALT Alkaline Phosphatase Creatine Kinase CK-MB (CK-2) Troponin I Total Protein Albumin TSH Free T4 Urine Color Urine Appearance Urine pH Ur Specific [place] Urine Protein Urine Glucose (UA) Urine Ketones Urine Blood Urine Nitrite Urine Bilirubin Urine Urobilinogen Ur Leukocyte Esterase Urine WBC (Auto) Urine RBC (Auto) Squamous Epi Cells Auto Urine Ascorbic Acid Head CT 01/28/20 01:24 IMPRESSION: 1. No acute intracranial findings. 2. Cerebral atrophy and chronic ischemic changes as on prior exam. Chest X-Ray 01/28/20 01:53 IMPRESSION: COPD. Lungs are clear ECHO cardiogram preliminary report shows asymmetric septal septal hypertrophy with mild resting LVOT gradient of 22 mmHg. There is aortic sclerosis without stenosis. There is normal left trigger systolic function. There is no significant pulmonary hypertension. Will have the echo repeated for proper care to gradient in the form of the estimating the patient's LVOT gradient with Valsalva maneuver. IMPRESSION/RECOMMENDATION: 1. Syncope: This is most likely secondary to IHSS/HOCM. Although the resting gradient is not very high we have to obtain from the K3 gradient and hence the echo will be repeated with Valsalva. The next question is whether this is a rrhythmogenic or hemodynamic. Unfortunately the patient is not able to give a good history. Anyway we will recommend that the patient have a 30-day event monitor. 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 3. Hypertension: Would recommend discontinue the patient's hydrochlorothiazide and losartan. We will start the patient on a beta-carolyn. 4. History of asthma and COPD. At present stable no acute exacerbation. 5. Dementia: At present without any behavioral disturbances. Discussed the patient with the patient's daughter. Later once I officially read the echo and if the IHSS is confirmed we will have the daughter get echocardiographic in the family members since this is a form of genetic condition. Medications reviewed medications adjusted. Medical regimen and management plan discussed with Dr. Erwin medical history making is of high complexity. 60 minutes spent on this patient more than 50% of time spent in direct patient care. Will follow
[2020-01-30] MEDS: ACETAMINOPHEN 325 MG TABLET PO SCH ×2 (05:07→13:29)
[2020-01-30] MEDS: HEPARIN SOD (PORCINE) 5,000 UNIT/ML 1 ML VIAL SUBCUT SCH ×2 (05:07→13:29)
[2020-01-30] MEDS: POLYETHYLENE GLYCOL 3350 POWDER 17 GM/1 PACKET PO SCH (09:03)
[2020-01-30] MEDS: METOPROLOL TARTRATE 50 MG TABLET PO SCH (09:03)
[2020-01-30] MEDS: CLONIDINE HCL 0.1 MG TABLET PO SCH (09:03)
[2020-01-30] MEDS: MEGESTROL ACETATE 20 MG TABLET PO SCH (09:05)
[2020-01-30] MEDS: FLUTICASONE/UMECLIDIN/VILANTER 100-62.5-25 MCG/DOSE IH SCH (09:06)
[2020-01-30] MEDS ORDERED: NICOTINE 21 MG/24 HR PATCH.TD24 TD SCH (10:00)
[2020-01-30 18:21] VITALS: BP 151/78
--- NOTE | 2020-01-30 19:19 | Progress Note ---
Provider Note Provider Note: CARDIOLOGY PROGRESS NOTE by Dr. Meredith Yoon on 01/30/2020. OBJECTIVE: The patient is conscious awake. She is confused. There is no further episodes of syncope. There is no arrhythmias seen on the monitor. She denies any chest pain discomfort or PND or orthopnea symptoms. She has no focal deficits and moving all 4 extremities. PHYSICAL EXAMINATION: The patient is a frail build. In no acute distress. She is well-groomed. Selected Entries 01/30/20 15:33 Temperature 99.0 F Temperature Oral Source Pulse Rate 68 Respiratory 18 Rate Blood Pressure 104/61 Blood Pressure 75 Mean BP Location Left Arm BP Position Supine O2 Sat by Pulse 100 Oximetry Oxygen Delivery Room Air Method HEAD: Is atraumatic normocephalic. EYES: Pupils are equal round regular reactive to light and accommodation. EARS: There is no inflammation of the tympanic membranes. External auditory canals are clear. NOSE: There is no deviated nasal septum. There is no inflammation nasal mucous membrane. MOUTH: Mucous membranes of the mouth are moist. Tongue is moist. There is no ulcers. There is no bleeding from gums. THROAT: There is no redness of the oropharynx. There is no exudates. SKIN: There is no petechia or ecchymosis. There is no skin lesions or skin rashes. NECK: Supple. There is no JVD. Carotids are equal there is no bruit. There is no lymphadenopathy. There is no goiter. There is no accessory muscle respiration use. Trachea central. LUNGS: Clear to auscultation percussion, without any rhonchi rales or wheezing. HEART: S1-S2 is heard. There is no S3 gallop. There is no S4 gallop. There is systolic murmur which is sharp in the left sternal border which increases in intensity with handgrip or Valsalva. There is aortic sclerosis murmur. A2 is preserved. There is no rub. There is no S3 or S4 gallop. ABDOMEN: Soft. Nontender. Th ere is no hepatosplenomegaly. Bowel sounds are well heard. Extremities femorals are well felt. There is no femoral bruits. Leg pulses well felt. There is no pedal edema. There is no DVT or cellulitis. There is no cyanosis or clubbing. SENIOR ENGINEERING TECH: The patient is confused but with no focal deficits. She is awake and alert. PSYCHIATRIC: The patient does not appear to be agitated or anxious. We Will Sign off and Follow the Patient in the Office. IMPRESSION/RECOMMENDATION: 1. Syncope: This is most likely secondary to IHSS/HOCM. Although the resting gradient is not very high, repeat recording of the LVOT gradient with Valsalva is not a very good study.. The next question is whether this is arrhythmogenic or hemodynamic. Unfortunately the patient is not able to give a good history. Anyway we will recommend that the patient have a 30-day event monitor. 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 3. Hypertension: Would recommend discontinue the patient's hydrochlorothiazide and losartan. We will start the patient on a beta-carolyn. 4. History of asthma and COPD. At present stable no acute exacerbation. 5. Dementia: At present without any behavioral disturbances. Medications reviewed. Medical regimen and management plan discussed with Dr. Erwin. Will follow the patient in the office. We will get a outpatient 30-day event monitor. Patient with advanced dementia and her age is not a candidate for any active aggressive Perceval of her LVOT. I have discussed with Dr. Erwin that the family needs to have them checked up for possible IHSS in the family members.
--- NOTE | 2020-01-30 19:55 | PDOC DISCHARGE SUMMARY ---
Impression - Admit/DC Date/PCP Admission Date/Primary Care Provider: 01/28/20 04:57 BIA CASTANEDA MD Discharge Date: 01/30/20 - Discharge Diagnosis (1) Syncope Is this a current diagnosis for this admission?: Yes (2) IHSS (idiopathic hypertrophic subaortic stenosis) Is this a current diagnosis for this admission?: Yes (3) COPD (chronic obstructive pulmonary disease) Is this a current diagnosis for this admission?: Yes (4) Bilateral primary osteoarthritis of knee Is this a current diagnosis for this admission?: Yes - Additional Information Discharge Diet: As Tolerated Discharge Activity: Activity As Tolerated, Balance Activity w/Rest Referrals: VIBHA DALTON MD [ACTIVE STAFF] - BIA CASTANEDA MD [Primary Care Provider] - Follow up as needed Prescriptions: Metoprolol Tartrate [Lopressor 50 mg Tablet] 50 mg PO Q12 #180 tablet Home Medications: Clonidine HCl 0.3 mg PO DAILY 04/22/16 Acetaminophen 500 mg PO Q8H #90 tablet 08/08/18 Megestrol Acetate 40 mg PO BID 01/27/20 Fluticasone/Umeclidin/Vilanter [Trelegy 100-62.5-25 Mcg Ellipta 14 Dose/Dpi] 1 puff PO DAILY 01/28/20 Tramadol HCl [Ultram 50 mg Tablet] 50 mg PO Q6HP PRN 01/28/20 Metoprolol Tartrate [Lopressor 50 mg Tablet] 50 mg PO Q12 #180 tablet 01/30/20 History of Present Illiness History of Present Illness: RONALDO CORADO is a 84 year old female,She came to the emergency room last night for evaluation of transient loss of consciousness associated with vomiting. The history was that she woke up from sleep, went to the bathroom, had episode of loss of consciousness, there was no antecedent chest pain, shortness of breath palpitation. She also has lost a lot of weight recently she has disabling olivier ateral primary osteoarthritis of both knees, essentially wheelchair-bound. Patient has had this episode of transient loss of consciousness previously, seizure activity was suspected as a potential etiology previously before this episode. EEG was done today EEG was said to be within normal limits for age, a 2D echo was also done, 2D echo demonstrated hyperdynamic function of left ventricle with aortic valve stenosis.The loss of consciousness could be probably syncope especially with aortic valve stenosis, she has underlining dementia, COPD, she probably could benefit from transcatheter aortic valve replacement, consultation will requested from cardiology, I am not sure she will be a good candidate for this procedure Hospital Course Hospital Course: She was admitted for the management of syncope, 2D echo was done, it demonstrated asymmetric septal hypertrophy, consistent with idiopathic hypertrophic subaortic stenosis. She was seen in consultation by Dr. Shaikh informatics physician, she be discharged home today, she will follow with Dr. Shaikh outpatient Physical Exam Vital Signs: Temp Pulse Resp BP Pulse Ox 99.0 F 68 18 151/78 H 100 01/30/20 18:19 01/30/20 18:19 01/30/20 18:19 01/30/20 18:19 01/30/20 18:19 Intake & Output 01/29/20 01/30/20 01/31/20 06:59 06:59 06:59 Intake Total 810 464 836 Output Total 200 1100 Balance 610 -636 836 Weight 47.4 kg 51.7 kg General appearance: PRESENT: no acute distress Eye exam: PRESENT: PERRLA Respiratory exam: PRESENT: clear to auscultation olivier Cardiovascular exam: PRESENT: +S1, +S2, systolic murmur GI/Abdominal exam: PRESENT: soft Neurological exam: PRESENT: alert Results Laboratory Results: WBC 11.9 10^3/uL (4.0-10.5) H 01/28/20 00:40 RBC 4.16 10^6/uL (3.72-5.28) 01/28/20 00:40 Hgb 9.2 g/dL (12.0-15.5) L 01/28/20 00:40 Hct 28.7 % (36.0-47.0) L 01/28/20 00:40 MCV 69 fl (80-97) L 01/28/20 00:40 MCH 22.1 pg (27.0-33.4) L 01/28/20 00:40 MCHC 32.0 g/dL (32.0-36.0) 01/28/20 00:40 RDW 22.1 % (11.5-14.0) H 01/28/20 00:40 Plt Count 407 10^3/uL (150-450) 01/28/20 00:40 Lymph % (Auto) 14.7 % (13-45) 01/28/20 00:40 Oliver % (Auto) 6.8 % (3-13) 01/28/20 00:40 Eos % (Auto) 1.6 % (0-6) 01/28/20 00:40 Baso % (Auto) 0.2 % (0-2) 01/28/20 00:40 Absolute Neuts (auto) 9.1 10^3/uL (1.7-8.2) H 01/28/20 00:40 Absolute Lymphs (auto) 1.7 10^3/uL (0.5-4.7) 01/28/20 00:40 Absolute Monos (auto) 0.8 10^3/uL (0.1-1.4) 01/28/20 00:40 Absolute Eos (auto) 0.2 10^3/uL (0.0-0.6) 01/28/20 00:40 Absolute Basos (auto) 0.0 10^3/uL (0.0-0.2) 01/28/20 00:40 Seg Neutrophils % 76.7 % (42-78) 01/28/20 00:40 Sodium 138.5 mmol/L (137-145) 01/28/20 00:40 Potassium 4.0 mmol/L (3.6-5.0) 01/28/20 00:40 Chloride 103 mmol/L (98-107) 01/28/20 00:40 Carbon Dioxide 24 mmol/L (22-30) 01/28/20 00:40 Anion Gap 12 (5-19) 01/28/20 00:40 BUN 32 mg/dL (7-20) H 01/28/20 00:40 Creatinine 0.82 mg/dL (0.52-1.25) 01/28/20 00:40 Est GFR ( Amer) > 60 (>60) 01/28/20 00:40 Est GFR (MDRD) Non-Af > 60 (>60) 01/28/20 00:40 Glucose 114 mg/dL (75-110) H 01/28/20 00:40 Hemoglobin A1c % 5.0 % (4.7-6.0) 01/28/20 19:42 Calcium 9.7 mg/dL (8.4-10.2) 01/28/20 00:40 Phosphorus 3.6 mg/dL (2.5-4.5) 01/28/20 00:40 Magnesium 2.3 mg/dL (1.6-2.3) 01/28/20 00:40 Total Bilirubin 0.3 mg/dL (0.2-1.3) 01/28/20 00:40 Direct Bilirubin 0.0 mg/dL (0.0-0.4) 01/28/20 00:40 Neonat Total Bilirubin Not Reportable 01/28/20 00:40 Neonat Direct Bilirubin Not Reportable 01/28/20 00:40 Neonat Indirect Bili Not Reportable 01/28/20 00:40 AST 18 U/L (14-36) 01/28/20 00:40 ALT 16 U/L (<35) 01/28/20 00:40 Alkaline Phosphatase 76 U/L (38-126) 01/28/20 00:40 Creatine Kinase 21 U/L (30-135) L 01/28/20 19:42 CK-MB (CK-2) 0.34 ng/mL (<4.55) 01/28/20 19:42 Troponin I < 0.012 ng/mL 01/28/20 19:42 Total Protein 6.8 g/dL (6.3-8.2) 01/28/20 00:40 Albumin 3.2 g/dL (3.5-5.0) L 01/28/20 00:40 TSH 3.76 uIU/mL (0.47-4.68) 01/28/20 00:40 Free T4 1.44 ng/dL (0.78-2.19) 01/28/20 00:40 Urine Color YELLOW 01/28/20 18:15 Urine Appearance CLEAR 01/28/20 18:15 Urine pH 7.0 (5.0-9.0) 01/28/20 18:15 Ur Specific Egan 1.015 01/28/20 18:15 Urine Protein NEGATIVE mg/dL (NEGATIVE) 01/28/20 18:15 Urine Glucose (UA) NEGATIVE mg/dL (NEGATIVE) 01/28/20 18:15 Urine Ketones NEGATIVE mg/dL (NEGATIVE) 01/28/20 18:15 Urine Blood SMALL (NEGATIVE) H 01/28/20 18:15 Urine Nitrite NEGATIVE (NEGATIVE) 01/28/20 18:15 Urine Bilirubin NEGATIVE (NEGATIVE) 01/28/20 18:15 Urine Urobilinogen 4.0 mg/dL (<2.0) H 01/28/20 18:15 Ur Leukocyte Esterase NEGATIVE (NEGATIVE) 01/28/20 18:15 Urine WBC (Auto) 1 /HPF 01/28/20 18:15 Urine RBC (Auto) 3 /HPF 01/28/20 18:15 Squamous Epi Cells Auto <1 /HPF 01/28/20 18:15 Urine Ascorbic Acid NEGATIVE (NEGATIVE) 01/28/20 18:15 01/28/20 01/28/20 01/28/20 00:40 07:24 12:51 CK-MB (CK-2) 0.42 0.41 0.40 Troponin I < 0.012 < 0.012 < 0.012 01/28/20 19:42 CK-MB (CK-2) 0.34 Troponin I < 0.012 Impressions: Head CT 01/28/20 01:24 IMPRESSION: 1. No acute intracranial findings. 2. Cerebral atrophy and chronic ischemic changes as on prior exam. Chest X-Ray 01/28/20 01:53 IMPRESSION: COPD. Lungs are clear copyright 2010 [employer]- All Rights Reserved Stroke Is this a Stroke Patient?: No Acute Heart Failure - Is this a Heart Failure Patient?: No
== END 2020-01-30 19:00 | disposition home or self-care (01) ==
LOC: ER 23:14 → EH 01-28 04:57 → 4N 01-28 06:17
PROVIDERS: ADMIT Internal Medicine; ATTEND Internal Medicine
DX: R55 Syncope and collapse (principal); I42.1 Obstructive hypertrophic cardiomyopathy; J44.9 Chronic obstructive pulmonary disease, unspecified; M17.0 Bilateral primary osteoarthritis of knee; R63.0 Anorexia; F03.90 Unspecified dementia, unspecified severity, without behavioral disturbance, psychotic disturbance, mood disturbance, and anxiety; R11.10 Vomiting, unspecified; I10 Essential (primary) hypertension; Z99.3 Dependence on wheelchair; Z73.6 Limitation of activities due to disability; Z87.891 Personal history of nicotine dependence; Z79.899 Other long term (current) drug therapy
CPT/HCPCS: 95819 ×2; 93005; 99285; 36415; 84439; 82553; 82550; 83735; 84100; 84443; 85025; 80053; 81001; 84484; 83036; 93306; 71045; 70450; 93010; 97530; 97163; A9270 ×16; J1644 ×3; J3490; G0378

== ENCOUNTER → 2020-03-09 | Outpatient (CLI) | payer MEDICARE ==
[2020-03-09 15:28] VITALS: BP 195/112
--- NOTE | 2020-03-09 15:28 | ER RDC ASSESSMENT REPORT ---
Intake - In the Last 14 days Have you traveled outside [place]?: No Have you been in close contact with someone CONFIRMED: Yes Worked in Healthcare?: No - Symptoms Subjective Fever([place] feverish): No Chills: No Muscule Aches: No Runny Nose: Yes Sore Throat: Yes Cough (New or worsening chronic cough): Yes Shortness of breath: No Nausea or Vomiting: No Headache: Yes Abdominal Pain: No Diarrhea(3 or more loose stools in last 24 hours): No - Do you have any of the following Chronic lung disease: Asthma or emphysema or COPD: Yes Cystic Fibrosis: No Diabetes: No High Blood Pressure: Yes Cardiovascular Disease: Yes Chronic Kidney Disease: No Chronic Liver Disease: No Chronic blood disorder like Sickle Cell Disease: No Weak immune system due to disease or medication: No Neurologic condition that limits movement: No Developmental delay - Moderate to Severe: No Recent (within past 2 weeks) or current : No Morbid Obesity (>100 pounds over ideal weight): No - Objective Vital Signs: 5'4" 118 lb Temperature: 99.1 F Pulse Rate: 92 Respiratory Rate: 16 Blood Pressure: 195/112 O2 Sat by Pulse Oximetry: 94 Objective: Given above, testing performed: flu, strep, covid Disposition: Home; Selfcare General - General Chief Complaint: Flu Symptoms Time Seen by Provider: 03/09/20 13:55 Mode of Arrival: Ambulatory Information source: Patient, Relative - [facility] Notes: 84-year-old female presents to [facility] clinic for COVID-19 testing. Patient's daughter has tested positive for COVID-19, the patient's daughter does reside with the patient and her spouse and access caregiver for both of them. Onset of symptoms 02/28/2020. They are reporting mild runny nose, sore throat, cough, and headache. They deny any fever, chills, myalgia, shortness of breath, nausea, abdominal pain or diarrhea. No exacerbating or relieving factors. Patient does have medical history significant for chronic lung disease, cardiovascular disease, and current smoker. - Related Data Allergies/Adverse Reactions: No Known Drug Allergies Allergy (Verified 03/27/19 16:03) shellfish derived Adverse Reaction (Verified 01/27/20 23:41) Past Medical History - General Information source: Patient - Social History Smoking Status: Current Every Day Smoker Cigarette use (# per day): Yes - 3 Smoking Education Provided: Yes Family History: Reviewed & Not Pertinent - Past Medical History Cardiac Medical History: Reports: Hx Congestive Heart Failure - as per prior chart though pt and daughter deny, Hx Hypertension Denies: Hx Coronary Artery Disease, Hx Heart Attack Pulmonary Medical History: Reports: Hx Asthma, Hx Bronchitis, Hx Pneumonia Denies: Hx COPD, Hx Tuberculosis EENT Medical History: Reports: None Neurological Medical History: Reports: None. Denies: Hx Cerebrovascular Accident, Hx Seizures Endocrine Medical History: Reports: None Renal/ Medical History: Reports: None. Denies: Hx Peritoneal Dialysis Malignancy Medical History: Reports: None GI Medical History: Reports: None Musculoskeletal Medical History: Reports Hx Arthritis Skin Medical History: Reports None Psychiatric Medical History: Reports: Hx Dementia Denies: Hx Depression Traumatic Medical History: Reports: None Infectious Medical History: Reports: None Past Surgical History: Reports: Hx Hysterectomy, Hx Orthopedic Surgery - R hand carpel tunnel. Denies: Hx Pacemaker Physical Exam - Vital signs Interpretation: Hypertensive - General General appearance: Appears well, Alert In distress: None Notes: PHYSICAL EXAMINATION: GENERAL: Well-appearing and in no acute distress. HEAD: Atraumatic, normocephalic. EYES: sclera anicteric, conjunctiva are normal. ENT: nares patent. Moist mucous membranes. NECK: Normal range of motion, supple without lymphadenopathy LUNGS: CTAB and equal. No wheezes rales or rhonchi. HEART: Regular rate and rhythm without murmurs ABDOMEN: Soft, nontender, normal bowel sounds, no guarding. EXTREMITIES: Normal range of motion, no pitting edema. No cyanosis. NEUROLOGICAL: Cranial nerves grossly intact. Normal speech. + dementia. PSYCH: Normal mood, normal affect. SKIN: Warm, Dry, normal turgor, no rashes or lesions noted Patient Education/Counseling Counseling/Education: Patient presents with upper respiratory symptoms worrisome for possible Covid 19. Patient resides with caregiver/daughter who has tested positive for COVID 19. Patient does not have emergency worrying symptoms such as difficulty breathing, shortness of breath, chest pain, pressure, confusion or cyanosis. Significant HTN noted- daughter is going to call PCP now for further direction. Patient appears suitable for discharge as patient is nontoxic in appearance with reinforcement of need for immediate attention to BP. Good return precautions have been discussed with patient, patient verbalized understanding and is agreeable with discharge plan of care at this time. Guidance for worsening S/SX: As a person under investigation for Covid 19, the [place] department of Health and Human Services, division of public health advises you to adhere to the following guidance until your test results are reported to you. If your test result is positive, you will receive additional information from your provider and your local health department at that time. Remain at home until you are cleared by the health provider or public health authorities. Keep a log of visitors to your home, notify any visitors to your home of your isolation status. If you plan to move to a new address or leave the county, notify the local health department in your County. Call your doctor or seek care if you have an urgent medical need. Before seeking medical care, call ahead to get instructions from the provider before arriving at the medical office clinic or hospital. Notify them that you are being tested for the virus that causes Covid 19 so that arrangements can be made, as necessary, to prevent transmission to others in the healthcare setting. Next, notify the local health department in your county. If a medical emergency arises and you need to call 911, inform the first responders that you are being tested for the virus that causes Covid 19. Next, notify the local health department in your county. RDC Discharge - Discharge Clinical Impression: Encounter for screening laboratory testing for COVID-19 virus Hypertension Qualifiers: Hypertension type: unspecified Qualified Code(s): I10 - Essential (primary) hypertension Upper respiratory infection Qualifiers: URI type: unspecified URI Qualified Code(s): J06.9 - Acute upper respiratory infection, unspecified Condition: Stable Disposition: Home; Selfcare - Calling to followup with Dr Rip villeda elevated BP
== END ==
LOC: RDC 13:18
PROVIDERS: ATTEND Registered Nurse
DX: Z20.828 Contact with and (suspected) exposure to other viral communicable diseases (principal); R09.89 Other specified symptoms and signs involving the circulatory and respiratory systems; J02.9 Acute pharyngitis, unspecified; R05 Cough; I10 Essential (primary) hypertension; E11.9 Type 2 diabetes mellitus without complications
CPT/HCPCS: 87070; 87880; 99201; U0003; G0463; C9803; 87635; 99211

== ENCOUNTER 2020-03-10 21:07 | Inpatient (IN) | payer MEDICARE ==
--- NOTE | 2020-03-10 22:28 | RADIOLOGY REPORT (SQ) ---
EXAM DESCRIPTION: XR CHEST 1 VIEW COMPLETED DATE/TME: 03/10/2020 21:52 CLINICAL HISTORY: 84 years, Female, weakness COMPARISON: 01/28/2020 chest NUMBER OF VIEWS: 1 TECHNIQUE: Portable chest LIMITATIONS: None. FINDINGS: The heart size is stable. Atheromatous change of the thoracic aorta. Osteopenia. Lungs are clear. No pneumothorax IMPRESSION: No acute cardiopulmonary process copyright 2010 [employer]- All Rights Reserved
[2020-03-10 22:50] LABS: ABSOLUTE EOSINOPHILS # (AUTO) 0.1 10^3/uL (0.0-0.6); ABSOLUTE LYMPHOCYTES (AUTO) 1.8 10^3/uL (0.5-4.7); ABSOLUTE MONOCYTES (AUTO) 0.8 10^3/uL (0.1-1.4); ABSOLUTE NEUT (AUTO) 3.1 10^3/uL (1.7-8.2); BASOPHILS % (AUTO) 0.5 % (0-2); HEMATOCRIT 32.3 % (36.0-47.0); HEMOGLOBIN 10.3 g/dL (12.0-15.5); LYMPHOCYTES % (AUTO) 30.5 % (13-45); MEAN CORPUSCULAR HEMOGLOBIN 22.5 pg (27.0-33.4); MEAN CORPUSCULAR HGB CONC 31.9 g/dL (32.0-36.0); MEAN CORPUSCULAR VOLUME 71 fl (80-97); MONOCYTES % (AUTO) 14.1 % (3-13); PLATELET COUNT 250 10^3/uL (150-450); RED BLOOD COUNT 4.59 10^6/uL (3.72-5.28); RED CELL DISTRIBUTION WIDTH 23.4 % (11.5-14.0); SEGMENTED NEUTROPHILS % (AUTO) 52.9 % (42-78); TOTAL CELLS COUNTED % (AUTO) 100 %; WHITE BLOOD COUNT 5.9 10^3/uL (4.0-10.5)
[2020-03-10 23:07] LABS: ALBUMIN 3.6 g/dL (3.5-5.0); ALKALINE PHOSPHATASE 70 U/L (38-126); ANION GAP 8 (5-19); ASPARTATE AMINO TRANSFERASE 23 U/L (14-36); BILIRUBIN,TOTAL 0.3 mg/dL (0.2-1.3); BLOOD UREA NITROGEN 35 mg/dL (7-20); CALCIUM 9.2 mg/dL (8.4-10.2); CARBON DIOXIDE 27 mmol/L (22-30); CHLORIDE 99 mmol/L (98-107); CREATINE KINASE 225 U/L (30-135); GLUCOSE 99 mg/dL (75-110); POTASSIUM 3.9 mmol/L (3.6-5.0); TOTAL PROTEIN 7.2 g/dL (6.3-8.2)
[2020-03-10 23:24] LABS: CREATINE KINASE MB 0.54 ng/mL (<4.55)
[2020-03-10 23:31] LABS: TROPONIN I < 0.012 ng/mL
[2020-03-11] MEDS ORDERED: NORMAL SALINE 1000 ML 1,000 ML IV ONE (00:19)
--- NOTE | 2020-03-11 00:57 | ER Document Report ---
ED General - General Chief Complaint: General Weakness Stated Complaint: COVID EXPOSURE Time Seen by Provider: 03/11/20 00:17 Notes: 84-year-old female brought to the emergency department by EMS for altered mental status. Speaking with patient's daughter who is the patient's primary delivery motorcycle driver she states that the patient has not been talking at all for the past few days and has not been swallowing. She has not had any p.o. intake for at least the past 2 days. Daughter states that she tries to give her fluids and they just a lot of her mouth. Daughter denies any vomiting or diarrhea. Denies any urine in her briefs for the past 2 days. States the patient has had a fever but the T-max was 99.0. This was prior to receiving a Z-Johnathan from Dr. Mclain. Patient states that she developed a cough that was productive 2 to 3 days ago an d was started on a Z-Johnathan by Dr. Mclain on the sixth. Daughter states the patient was tested for coronavirus on the sixth as well as the RDC because of the fact that the patient's daughter who is giving the history is positive for coronavirus. Daughter notes that the patient is nonambulatory at baseline but normally she is continent on the toilet and just needs assistance to the toilet. Daughter states that for the past 2 days she has been unable to bring the patient to the toilet due to the patient being unable to cooperate. Patient is verbal at this time, denies any pain, denies any shortness of breath, admits productive cough for the past 2 to 3 days. Denies fevers, admits that she is on a Z-Johnathan. TRAVEL OUTSIDE OF THE [place] IN LAST 30 DAYS: No - Related Data Allergies/Adverse Reactions: No Known Drug Allergies Allergy (Verified 03/27/19 16:03) shellfish derived Adverse Reaction (Verified 01/27/20 23:41) Past Medical History - General Information source: Patient - Social History Smoking Status: Current Every Day Smoker - Daughter states she has not smoked for the past 4 days Chew tobacco use (# tins/day): No Frequency of alcohol use: None Drug Abuse: None Family History: Reviewed & Not Pertinent - Past Medical History Cardiac Medical History: Reports: Hx Congestive Heart Failure - as per prior chart though pt and daughter deny, Hx Hypertension Denies: Hx Coronary Artery Disease, Hx Heart Attack Pulmonary Medical History: Reports: Hx Asthma, Hx Bronchitis, Hx Pneumonia Denies: Hx COPD, Hx Tuberculosis Neurological Medical History: Denies: Hx Cerebrovascular Accident, Hx Seizures Renal/ Medical History: Denies: Hx Peritoneal Dialysis Musculoskeletal Medical History: Reports Hx Arthritis Psychiatric Medical History: Reports: Hx Dementia Denies: Hx Depression Past Surgical History: Reports: Hx Hysterectomy, Hx Orthopedic Surgery - R hand carpel tunnel. Denies: Hx Pacemaker - Immunizations Hx Diphtheria, Pertussis, Tetanus Vaccination: Yes Review of Systems - Review of Systems Constitutional: See HPI, Fever, Malaise, Weakness. denies: Chills, Diaphoresis EENT: No symptoms reported Cardiovascular: No symptoms reported Respiratory: See HPI, Cough. denies: Hurts to breathe, Short of breath Gastrointestinal: See HPI - decreased oral intake, Poor appetite Genitourinary: See HPI, Retention - Versus no urine output. Neurological/Psychological: See HPI, Confusion -: Yes All other systems reviewed and negative Physical Exam - Vital signs Vitals: Resp Pulse Ox 20 98 03/10/20 21:10 03/10/20 21:10 Notes: Initially hypertensive, normalized after sitting in bed. - Notes Notes: GENERAL: Laying in bed, awake, interacts generally well, no acute distress. HEAD: Normocephalic, atraumatic EYES: Pupils equal, round and reactive to light, extraocular movements intact. ENT: Oral mucosa slightly dry, tongue midline. NECK: Full range of motion, supple, trachea midline. LUNGS: Clear to auscultation bilaterally, no wheezes, rales or rhonchi, no respiratory distress. HEART: Regular rate and rhythm, no murmurs, gallops, rubs. ABDOMEN: Soft, nontender, nondistended, bowel sounds present in all 4 quadrants. EXTREMITIES: Moves all 4 extremities spontaneously, no edema, radial and dorsalis pedis pulses 2/4 bilaterally. No cyanosis. Prefers to rollover rather than sit up, able to follow commands. NEUROLOGICAL: Alert and oriented person and situation, oriented to place as well, cannot name the president or the year, aware that her daughter has coronavirus and that her cough started 2 to 3 days ago, normal speech, no facial droop, biceps and patellar DTRs 2+ bilaterally. PSYCH: Normal mood, normal affect. SKIN: Warm, Dry, normal turgor, no rashes or lesions noted. Course - Re-evaluation Re-evalutation: 03/11/20 02:47 Nursing reports patient has been able to drink at least 4 large swallows of water. 03/11/20 02:48 CBC shows anemia with hemoglobin 10.3, no leukocytosis, CMP shows a bump in her BUN to 35 otherwise unremarkable, troponin normal. Chest x-ray shows no acute process. CT the head is pending. Urinalysis is pending. 03/11/20 04:01 Patient was not able to use the toilet on her own, had to be straight cathed. Patient did require large amount of assistance to drink. CT scan of the head does not show any acute process. Discussed patient with Dr. Mclain, he is quite concerned by the degree of assistance that she needs, the fact that her delivery motorcycle driver has coronavirus and he feels she likely has coronavirus 2, feels she is quite high risk for decompensation should she go home as she will not have the level of assistance that she needs and she cannot care for herself. Patient will be admitted for decreased oral intake and altered mental status. 03/11/20 05:43 Urinalysis does not show any signs of infection or dehydration. - Vital Signs Vital signs: Temp Pulse Resp BP Pulse Ox 15 187/89 H 99 03/11/20 05:01 03/11/20 04:01 03/11/20 05:01 - Laboratory Result Diagrams: 03/10/20 22:33 03/10/20 22:33 Laboratory results interpreted by me: 03/10/20 03/10/20 03/11/20 22:33 22:33 02:50 Hgb 10.3 L Hct 32.3 L MCV 71 L MCH 22.5 L MCHC 31.9 L RDW 23.4 H Davison % (Auto) 14.1 H Sodium 134.2 L BUN 35 H Est GFR ( Amer) 57 L Est GFR (MDRD) Non-Af 47 L Creatine Kinase 225 H Urine Protein 100 H Urine Blood MODERATE H - EKG Interpretation by Me Additional EKG results interpreted by me: 03/11/20 00:19 EKG shows sinus rhythm at a rate of 64, normal axis, normal intervals, no ST segment elevations or depressions, isolated T wave inversions noted in aVL, T wave flattening in V2 per my interpretation. Discharge - Discharge Clinical Impression: Decreased oral intake, COPD exacerbation Altered mental status Qualifiers: Altered mental status type: somnolence Qualified Code(s): R40.0 - Somnolence Hypertension Qualifiers: Hypertension type: essential hypertension Qualified Code(s): I10 - Essential (primary) hypertension Condition: Fair Disposition: ADMITTED INPATIENT Admitting Provider: Rip Unit Admitted: Telemetry
--- NOTE | 2020-03-11 02:49 | RADIOLOGY REPORT (SQ) ---
EXAM DESCRIPTION: CT HEAD WITHOUT IV CONTRAST COMPLETED DATE/TME: 03/11/2020 00:19 CLINICAL HISTORY: dizziness and weakness COMPARISON: 01/28/2020 TECHNIQUE: Axial CT of the head obtained from the skull apex to the skull base without contrast. FINDINGS: No acute intracranial hemorrhage identified. No mass, mass effect, shift of the midline, abnormal extra-axial fluid collection or CT evidence of acute ischemic change identified. The ventricular system and sulcal spaces are mildly enlarged compatible with mild cerebral atrophy. Scattered areas of hypodensity throughout the supratentorial white matter are nonspecific and may be related to chronic small vessel ischemic change. Mild mucosal thickening of the right maxillary sinus. Mastoid air cells are well aerated. No skull fracture identified. Visualized orbits and globes are unremarkable. Atherosclerotic calcification of the intracranial internal carotid arteries. IMPRESSION: 1. No acute intracranial abnormality by CT criteria. This exam was performed according to our departmental dose-optimization program, which includes automated exposure control, adjustment of the mA and/or kV according to patient size and/or use of iterative reconstruction technique.
[2020-03-11 03:21] LABS: APPEARANCE,URINE SLIGHTLY-CLOUDY; BILIRUBIN,URINE NEGATIVE (NEGATIVE); COLOR,URINE YELLOW; GLUCOSE, URINE NEGATIVE (NEGATIVE); KETONES,URINE NEGATIVE (NEGATIVE); PROTEIN,URINE 100 mg/dL (NEGATIVE); URINE SPECIFIC GRAVITY 1.015; UROBILINOGEN,URINE NEGATIVE mg/dL (<2.0)
--- NOTE | 2020-03-11 07:41 | EKG REPORT ---
SEVERITY:- ABNORMAL ECG - SINUS RHYTHM ATRIAL PREMATURE COMPLEX LEYLA, CONSIDER BIATRIAL ABNORMALITIES : Confirmed by: Cesar Ayala MD 11-Mar-2020 07:40:02
[2020-03-11 08:18] LABS: INTERNATIONAL RATION (INR) 1.06; PROTHROMBIN TIME 13.8 SEC (11.4-15.4)
[2020-03-11 08:19] LABS: PARTIAL THROMBOPLASTIN TIME 30.3 SEC (23.5-35.8)
[2020-03-11 08:33] LABS: AMYLASE 159 U/L (30-110); ANION GAP 11 (5-19); BLOOD UREA NITROGEN 26 mg/dL (7-20); CALCIUM 9.2 mg/dL (8.4-10.2); CARBON DIOXIDE 23 mmol/L (22-30); CHLORIDE 102 mmol/L (98-107); GLUCOSE 76 mg/dL (75-110); POTASSIUM 3.6 mmol/L (3.6-5.0)
[2020-03-11 08:49] LABS: FREE T4 (FREE THYROXINE) 1.44 ng/dL (0.78-2.19)
[2020-03-11 08:53] LABS: TROPONIN I < 0.012 ng/mL
[2020-03-11 09:04] LABS: THYROID STIMULATING HORMONE 2.06 uIU/mL (0.47-4.68)
[2020-03-11] MEDS: HEPARIN SOD (PORCINE) 5,000 UNIT/ML 1 ML VIAL SUBCUT SCH ×3 (09:16→21:17)
[2020-03-11] MEDS: FLUTICASONE/UMECLIDIN/VILANTER 100-62.5-25 MCG/DOSE IH SCH (09:17)
[2020-03-11] MEDS ORDERED: HYDRALAZINE HCL INJ/PF 20 MG/1 ML SDV ONE (11:42)
[2020-03-11] MEDS: HYDRALAZINE HCL INJ/PF 20 MG/1 ML SDV IV PRN ×2 (11:43→20:05)
[2020-03-11] MEDS: POTASSI CL 20 MEQ/D5-1/2NS 1L 1,000 ML IV PRN (12:00)
[2020-03-11 14:45] LABS: CREATINE KINASE MB 0.87 ng/mL (<4.55)
[2020-03-11 14:51] LABS: TROPONIN I < 0.012 ng/mL
[2020-03-11] MEDS ORDERED: (PENDING PHARMACY ID) (Clonidine Hcl [Clonidine Hcl] 0.3 MG) PO SCH (16:15)
[2020-03-11] MEDS ORDERED: (PENDING PHARMACY ID) (Acetaminophen [Acetaminophen] 500 MG) PO SCH (16:15)
--- NOTE | 2020-03-11 16:24 | PDOC H&P ---
History of Present Illness Admission Date/PCP: 03/11/20 04:24 BIA CASTANEDA MD History of Present Illness: RONALDO CORADO is a 84 year old female, She has a history of very severe chronic obstructive lung disease, ongoing tobacco abuse, Idiopathic hypertrophic subaortic stenosis She stays with her daughter who recently was positive for COVID.I had a telemedicine encounter with 2 days ago at the time she looks very sick, I prescribed antibiotic azithromycin knowing that she has very severe COPD but was very concerned that she may have COVID The daughter primary caregiver was positive for SARS-CoV-2 infection 2 days ago. She has been running fever with low-grade temperature patient's daughter stated that she has not been eating or drinking in the last couple of days. She has disabling arthropathy of the knee that has essentially made her nonambulatory. She was transported to the emergency room last night because of altered mental status and adult failure to thrive the initial chest imaging, the chest x-ray was negative. Patient most likely have COVID unfortunately the rapid covid tests is only reserved for patient for OR She is a DNR status from previous encounter tis is to be maintained Past Medical History Cardiac Medical History: Reports: Hypertension, Other - IHSS Pulmonary Medical History: Reports: Asthma, Bronchitis, Chronic Obstructive Pulmonary Disease (COPD), Pneumonia Musculoskeltal Medical History: Reports: Arthritis Psychiatric Medical History: Reports: Dementia Denies: Depression Hematology: Reports: Anemia Past Surgical History Past Surgical History: Reports: Hysterectomy, Orthopedic Surgery - R hand carpel tunnel Social History Smoking Status: Current Every Day Smoker Electronic Cigarette use?: No Frequency of Alcohol Use: None Hx Recreational Drug Use: No Drugs: None Hx Prescription Drug Abuse: No Family History Family History: Reviewed & Not Pertinent Parental Family History Reviewed: Yes Children Family History Reviewed: Yes Sibling(s) Family History Reviewed.: Yes Medication/Allergy Home Medications: Clonidine HCl 0.3 mg PO Q8 04/22/16 Megestrol Acetate 40 mg PO BID 01/27/20 Fluticasone/Umeclidin/Vilanter [Trelegy 100-62.5-25 Mcg Ellipta 14 Dose/Dpi] 1 puff IH DAILY 01/28/20 Metoprolol Tartrate [Lopressor 50 mg Tablet] 50 mg PO Q12 #180 tablet 01/30/20 Acetaminophen 500 mg PO Q8 03/11/20 Polyethylene Glycol 3350 [Miralax Powder 17 gm/Packet] 1 packet PO QAM 03/11/20 Allergies/Adverse Reactions: No Known Drug Allergies Allergy (Verified 03/27/19 16:03) shellfish derived Adverse Reaction (Verified 01/27/20 23:41) Review of Systems Constitutional: PRESENT: chills, fever(s) Eyes: ABSENT: visual disturbances Ears: ABSENT: hearing changes Cardiovascular: PRESENT: dyspnea on exertion Respiratory: PRESENT: cough, dyspnea Gastrointestinal: PRESENT: nausea Integumentary: ABSENT: rash, wounds Neurological: PRESENT: memory loss Endocrine: ABSENT: cold intolerance, heat intolerance, menstrual abnormalities, polydipsia, polyuria Hematologic/Lymphatic: ABSENT: easy bleeding, easy bruising, lymphadenopathy Physical Exam Vital Signs: Temp Pulse Resp BP Pulse Ox 99.0 F 108 H 20 189/105 H 96 03/11/20 15:18 03/11/20 15:18 03/11/20 15:18 03/11/20 15:41 03/11/20 15:18 Intake & Output 03/10/20 03/11/20 03/12/20 06:59 06:59 06:59 Intake Total 1000 Balance 1000 Weight 50 kg General appearance: PRESENT: mild distress, thin Head exam: PRESENT: atraumatic, normocephalic Eye exam: PRESENT: PERRLA Mouth exam: PRESENT: dry mucosa Neck exam: PRESENT: full ROM Respiratory exam: PRESENT: rhonchi Cardiovascular exam: PRESENT: RRR, +S1, +S2 Pulses: PRESENT: normal dorsalis pedis pul, +2 pedal pulses bilateral Vascular exam: PRESENT: normal capillary refill GI/Abdominal exam: PRESENT: normal bowel sounds, soft Rectal exam: PRESENT: deferred Neurological exam: PRESENT: alert. ABSENT: motor sensory deficit Psychiatric exam: PRESENT: appropriate affect, normal mood Skin exam: PRESENT: dry, intact, warm Results Laboratory Results: 03/10/20 22:33 03/11/20 07:17 03/10/20 03/10/20 03/11/20 22:33 22:33 02:50 WBC 5.9 RBC 4.59 Hgb 10.3 L Hct 32.3 L MCV 71 L MCH 22.5 L MCHC 31.9 L RDW 23.4 H Plt Count 250 Seg Neutrophils % 52.9 Sodium 134.2 L Potassium 3.9 Chloride 99 Carbon Dioxide 27 Anion Gap 8 BUN 35 H Creatinine 1.11 Est GFR ( Amer) 57 L Glucose 99 Calcium 9.2 Phosphorus Magnesium Total Bilirubin 0.3 AST 23 Alkaline Phosphatase 70 Ammonia Total Protein 7.2 Albumin 3.6 Amylase Lipase TSH Free T4 Urine Color YELLOW Urine Appearance SLIGHTLY-CLOUDY Urine pH 5.0 Ur Specific [place] 1.015 Urine Protein 100 H Urine Glucose (UA) NEGATIVE Urine Ketones NEGATIVE Urine Blood MODERATE H Urine RBC (Auto) 2 03/11/20 03/11/20 03/11/20 07:17 07:17 07:17 WBC RBC Hgb Hct MCV MCH MCHC RDW Plt Count Seg Neutrophils % Sodium 136.3 L Potassium 3.6 Chloride 102 Carbon Dioxide 23 Anion Gap 11 BUN 26 H Creatinine 0.80 Est GFR ( Amer) > 60 Glucose 76 Calcium 9.2 Phosphorus 3.0 Magnesium 2.1 Total Bilirubin AST Alkaline Phosphatase Ammonia < 8.7 L Total Protein Albumin Amylase 159 H Lipase 284.8 TSH 2.06 Free T4 1.44 Urine Color Urine Appearance Urine pH Ur Specific [place] Urine Protein Urine Glucose (UA) Urine Ketones Urine Blood Urine RBC (Auto) 03/10/20 03/10/20 03/11/20 22:33 22:33 03:40 Creatine Kinase 225 H CK-MB (CK-2) 0.54 Troponin I < 0.012 < 0.012 NT-Pro-B Natriuret Pep 03/11/20 03/11/20 03/11/20 07:17 07:17 07:17 Creatine Kinase 368 H CK-MB (CK-2) 0.80 Troponin I < 0.012 NT-Pro-B Natriuret Pep 309 03/11/20 03/11/20 13:54 13:54 Creatine Kinase 296 H CK-MB (CK-2) 0.87 Troponin I < 0.012 NT-Pro-B Natriuret Pep Impressions: Chest X-Ray 03/10/20 21:52 IMPRESSION: No acute cardiopulmonary process copyright 2011 [email or web address]- All Rights Reserved Head CT 03/11/20 00:19 IMPRESSION: 1. No acute intracranial abnormality by CT criteria. This exam was performed according to our departmental dose-optimization program, which includes automated exposure control, adjustment of the mA and/or kV according to patient size and/or use of iterative reconstruction technique. Assessment & Plan - Diagnosis (1) COVID-19 Is this a current diagnosis for this admission?: Yes Plan: This is most likely COVID, she has fever, she is short of breath she was in direct contact with the daughter who is the primary cash analyst and she is COVID positive, she will be started on dexamethasone 3 mg IV every 12 she is already giving azithromycin outpatient for couple of days (2) COPD (chronic obstructive pulmonary disease) Qualifiers: COPD type: unspecified COPD Qualified Code(s): J44.9 - Chronic obstructive pulmonary disease, unspecified Is this a current diagnosis for this admission?: Yes Plan: Continue anti-COPD regimen (3) IHSS (idiopathic hypertrophic subaortic stenosis) Is this a current diagnosis for this admission?: Yes (4) Essential (primary) hypertension Is this a current diagnosis for this admission?: Yes
[2020-03-11] MEDS ORDERED: FLUTICASONE/UMECLIDIN/VILANTER 100-62.5-25 MCG/DOSE IH SCH (17:00)
[2020-03-11] MEDS: CLONIDINE HCL 0.1 MG TABLET PO SCH ×2 (17:33→21:16)
[2020-03-11] MEDS: METOPROLOL TARTRATE 50 MG TABLET PO SCH (17:34)
[2020-03-11] MEDS: ACETAMINOPHEN 325 MG TABLET PO SCH ×2 (17:34→22:31)
[2020-03-11] MEDS: DEXAMETHASONE SOD PHOSPHATE INJ 4 MG/1 ML VIAL IV SCH (17:34)
[2020-03-11 20:32] LABS: CREATINE KINASE MB 0.63 ng/mL (<4.55); TROPONIN I 0.015 ng/mL
[2020-03-11] MEDS ORDERED: ACETAMINOPHEN 325 MG SUPP.RECT PR ONE (20:50)
[2020-03-11] MEDS ORDERED: ACETAMINOPHEN 650 MG SUPP.RECT PR PRN ×2 (20:55→22:11)
[2020-03-12] MEDS ORDERED: DEXTROSE 50%-WATER 25 GM/50 ML DISP.SYRIN IV PRN ×2 (03:10)
[2020-03-12] MEDS ORDERED: DEXTROSE 40% GEL 15 GM TUBE PO PRN ×2 (03:10)
[2020-03-12] MEDS ORDERED: GLUCAGON,HUMAN RECOMB 1 MG INJ SUBCUT PRN (03:10)
--- NOTE | 2020-03-12 04:51 | RADIOLOGY REPORT (SQ) ---
CLINICAL HISTORY: STROKE ALERT COMPARISON: 03/11/2020. TECHNIQUE: CT HEAD WITHOUT IV CONTRAST on 03/12/2020 12:00 AM CDT This exam was performed according to our departmental dose-optimization program, which includes automated exposure control, adjustment of the mA and/or kV according to patient size and/or use of iterative reconstruction technique. FINDINGS: There is no acute hemorrhage, mass effect or midline shift. Mayo-white differentiation is preserved. There is no hydrocephalus. There is no significant volume loss for age. There are moderate white matter hypodensities bilaterally likely secondary to small vessel ischemic changes. The calvarium is intact. Orbits and globes are unremarkable. There is mild thickening of the right maxillary sinus. Mastoid air cells are clear. IMPRESSION: No acute intracranial findings.
[2020-03-12] MEDS: DEXAMETHASONE SOD PHOSPHATE INJ 4 MG/1 ML VIAL IV SCH ×2 (05:19→17:43)
[2020-03-12] MEDS: HEPARIN SOD (PORCINE) 5,000 UNIT/ML 1 ML VIAL SUBCUT SCH ×2 (05:20→15:39)
[2020-03-12] MEDS: CLONIDINE HCL 0.1 MG TABLET PO SCH ×2 (05:20→15:39)
[2020-03-12] MEDS: METOPROLOL TARTRATE 50 MG TABLET PO SCH ×2 (05:21→17:43)
[2020-03-12] MEDS: ACETAMINOPHEN 325 MG TABLET PO SCH ×2 (05:23→15:39)
[2020-03-12 06:48] LABS: ABSOLUTE LYMPHOCYTES (AUTO) 0.9 10^3/uL (0.5-4.7); ABSOLUTE MONOCYTES (AUTO) 0.8 10^3/uL (0.1-1.4); ABSOLUTE NEUT (AUTO) 5.7 10^3/uL (1.7-8.2); BASOPHILS % (AUTO) 0.7 % (0-2); EOSINOPHILS % (AUTO) 0.1 % (0-6); HEMATOCRIT 32.5 % (36.0-47.0); HEMOGLOBIN 10.8 g/dL (12.0-15.5); LYMPHOCYTES % (AUTO) 12.1 % (13-45); MEAN CORPUSCULAR HEMOGLOBIN 22.9 pg (27.0-33.4); MEAN CORPUSCULAR HGB CONC 33.2 g/dL (32.0-36.0); MEAN CORPUSCULAR VOLUME 69 fl (80-97); MONOCYTES % (AUTO) 10.7 % (3-13); PLATELET COUNT 289 10^3/uL (150-450); RED BLOOD COUNT 4.71 10^6/uL (3.72-5.28); RED CELL DISTRIBUTION WIDTH 22.9 % (11.5-14.0); SEGMENTED NEUTROPHILS % (AUTO) 76.4 % (42-78); TOTAL CELLS COUNTED % (AUTO) 100 %; WHITE BLOOD COUNT 7.5 10^3/uL (4.0-10.5)
[2020-03-12 07:02] LABS: ALBUMIN 3.6 g/dL (3.5-5.0); ALKALINE PHOSPHATASE 77 U/L (38-126); ASPARTATE AMINO TRANSFERASE 25 U/L (14-36); BILIRUBIN,TOTAL 0.6 mg/dL (0.2-1.3); CHOLESTEROL 113.47 mg/dL (0-200); TOTAL PROTEIN 7.3 g/dL (6.3-8.2); TRIGLYCERIDES 74 mg/dL (<150)
[2020-03-12 07:13] LABS: DIRECT LDL 65 mg/dL (<100)
[2020-03-12] MEDS: FLUTICASONE/UMECLIDIN/VILANTER 100-62.5-25 MCG/DOSE IH SCH (09:29)
[2020-03-12] MEDS ORDERED: MORPHINE SULFATE 10 MG/ML INJ IV PRN (17:07)
--- NOTE | 2020-03-12 20:41 | PDOC PROGRESS REPORT ---
Subjective Progress Note for:: 03/12/20 Subjective:: Patient condition is very poor she has a clinical stroke MRI could not be obtained, patient transitioned to comfort prognosis is poor the probability of COVID is very high ,result is pending continue all present care .Case discussed with the patient's daughter Reason For Visit: COPD R/O COVID, EXPOSURE TO SARS COV 2 INFECTION Physical Exam Vital Signs: Temp Pulse Resp BP Pulse Ox 98.6 F 103 H 18 164/108 H 96 03/12/20 16:16 03/12/20 16:16 03/12/20 16:16 03/12/20 16:16 03/12/20 16:16 Intake & Output 03/11/20 03/12/20 03/13/20 06:59 06:59 06:59 Intake Total 1000 1360 0 Output Total 1025 300 Balance 1000 335 -300 Weight 50 kg 49.7 kg 49.7 kg Results Laboratory Results: 03/12/20 06:13 03/11/20 07:17 03/12/20 03/12/20 06:13 06:13 WBC 7.5 RBC 4.71 Hgb 10.8 L Hct 32.5 L MCV 69 L MCH 22.9 L MCHC 33.2 RDW 22.9 H Plt Count 289 Seg Neutrophils % 76.4 Total Bilirubin 0.6 AST 25 Alkaline Phosphatase 77 Total Protein 7.3 Albumin 3.6 Triglycerides 74 Cholesterol 113.47 LDL Cholesterol Direct 65 VLDL Cholesterol 15.0 HDL Cholesterol 32 L 03/10/20 03/10/20 03/11/20 22:33 22:33 03:40 Creatine Kinase 225 H CK-MB (CK-2) 0.54 Troponin I < 0.012 < 0.012 NT-Pro-B Natriuret Pep 03/11/20 03/11/20 03/11/20 07:17 07:17 07:17 Creatine Kinase 368 H CK-MB (CK-2) 0.80 Troponin I < 0.012 NT-Pro-B Natriuret Pep 309 03/11/20 03/11/20 03/11/20 13:54 13:54 19:34 Creatine Kinase 296 H 250 H CK-MB (CK-2) 0.87 Troponin I < 0.012 NT-Pro-B Natriuret Pep 03/11/20 19:34 Creatine Kinase CK-MB (CK-2) 0.63 Troponin I 0.015 NT-Pro-B Natriuret Pep Impressions: Chest X-Ray 03/10/20 21:52 IMPRESSION: No acute cardiopulmonary process copyright 2011 [employer]- All Rights Reserved Head CT 03/12/20 00:00 IMPRESSION: No acute intracranial findings. Assessment & Plan - Diagnosis (1) COVID-19 Is this a current diagnosis for this admission?: Yes (2) COPD (chronic obstructive pulmonary disease) Qualifiers: COPD type: unspecified COPD Qualified Code(s): J44.9 - Chronic obstructive pulmonary disease, unspecified Is this a current diagnosis for this admission?: Yes (3) IHSS (idiopathic hypertrophic subaortic stenosis) Is this a current diagnosis for this admission?: Yes (4) Essential (primary) hypertension Is this a current diagnosis for this admission?: Yes - Time Time Spent with patient: 25-34 minutes Level of Care: IMCU - Plan Summary Plan Summary: Patient with minimal intake
[2020-03-13] MEDS: HEPARIN SOD (PORCINE) 5,000 UNIT/ML 1 ML VIAL SUBCUT SCH ×4 (04:38→21:13)
[2020-03-13] MEDS: CLONIDINE HCL 0.1 MG TABLET PO SCH ×4 (04:38→21:12)
[2020-03-13] MEDS: ACETAMINOPHEN 325 MG TABLET PO SCH ×4 (04:58→21:13)
[2020-03-13 05:28] LABS: ABSOLUTE LYMPHOCYTES (AUTO) 1.5 10^3/uL (0.5-4.7); ABSOLUTE MONOCYTES (AUTO) 1.2 10^3/uL (0.1-1.4); ABSOLUTE NEUT (AUTO) 6.2 10^3/uL (1.7-8.2); BASOPHILS % (AUTO) 0.5 % (0-2); EOSINOPHILS % (AUTO) 0.3 % (0-6); HEMATOCRIT 34.8 % (36.0-47.0); HEMOGLOBIN 11.1 g/dL (12.0-15.5); LYMPHOCYTES % (AUTO) 16.4 % (13-45); MEAN CORPUSCULAR HEMOGLOBIN 22.6 pg (27.0-33.4); MEAN CORPUSCULAR HGB CONC 31.7 g/dL (32.0-36.0); MEAN CORPUSCULAR VOLUME 71 fl (80-97); MONOCYTES % (AUTO) 13.7 % (3-13); PLATELET COUNT 325 10^3/uL (150-450); SEGMENTED NEUTROPHILS % (AUTO) 69.1 % (42-78); TOTAL CELLS COUNTED % (AUTO) 100 %
[2020-03-13 05:40] LABS: ALBUMIN 3.8 g/dL (3.5-5.0); ALKALINE PHOSPHATASE 76 U/L (38-126); ASPARTATE AMINO TRANSFERASE 27 U/L (14-36); BILIRUBIN,DIRECT 0.1 mg/dL (0.0-0.4); BILIRUBIN,TOTAL 0.6 mg/dL (0.2-1.3); TOTAL PROTEIN 7.7 g/dL (6.3-8.2)
[2020-03-13] MEDS: METOPROLOL TARTRATE 50 MG TABLET PO SCH ×2 (05:40→18:26)
[2020-03-13] MEDS: DEXAMETHASONE SOD PHOSPHATE INJ 4 MG/1 ML VIAL IV SCH ×2 (06:31→18:39)
[2020-03-13] MEDS: FLUTICASONE/UMECLIDIN/VILANTER 100-62.5-25 MCG/DOSE IH SCH (10:11)
[2020-03-13] MEDS: POTASSI CL 20 MEQ/D5-1/2NS 1L 1,000 ML IV PRN (14:22)
--- NOTE | 2020-03-13 21:11 | PDOC PROGRESS REPORT ---
Subjective Progress Note for:: 03/13/20 Subjective:: Patient seen by the bedside, she has no news complaint Reason For Visit: COPD R/O COVID, EXPOSURE TO SARS COV 2 INFECTION Physical Exam Vital Signs: Temp Pulse Resp BP Pulse Ox 99.3 F 123 H 17 177/115 H 95 03/13/20 07:55 03/13/20 19:00 03/13/20 07:55 03/13/20 07:55 03/13/20 07:55 Intake & Output 03/12/20 03/13/20 03/14/20 06:59 06:59 06:59 Intake Total 1360 0 Output Total 1025 500 500 Balance 335 -500 -500 Weight 49.7 kg 49.2 kg Results Laboratory Results: 03/13/20 04:15 03/11/20 07:17 03/13/20 03/13/20 04:15 04:15 WBC 9.0 RBC 4.90 Hgb 11.1 L Hct 34.8 L MCV 71 L MCH 22.6 L MCHC 31.7 L RDW 23.0 H Plt Count 325 Seg Neutrophils % 69.1 Total Bilirubin 0.6 AST 27 Alkaline Phosphatase 76 Total Protein 7.7 Albumin 3.8 03/10/20 03/10/20 03/11/20 22:33 22:33 03:40 Creatine Kinase 225 H CK-MB (CK-2) 0.54 Troponin I < 0.012 < 0.012 NT-Pro-B Natriuret Pep 03/11/20 03/11/20 03/11/20 07:17 07:17 07:17 Creatine Kinase 368 H CK-MB (CK-2) 0.80 Troponin I < 0.012 NT-Pro-B Natriuret Pep 309 03/11/20 03/11/20 03/11/20 13:54 13:54 19:34 Creatine Kinase 296 H 250 H CK-MB (CK-2) 0.87 Troponin I < 0.012 NT-Pro-B Natriuret Pep 03/11/20 19:34 Creatine Kinase CK-MB (CK-2) 0.63 Troponin I 0.015 NT-Pro-B Natriuret Pep Impressions: Chest X-Ray 03/10/20 21:52 IMPRESSION: No acute cardiopulmonary process copyright 2011 [employer]- All Rights Reserved Head CT 03/12/20 00:00 IMPRESSION: No acute intracranial findings. Assessment & Plan - Diagnosis (1) COVID-19 Is this a current diagnosis for this admission?: Yes Plan: continue IV dexamethasone (2) COPD (chronic obstructive pulmonary disease) Qualifiers: COPD type: unspecified COPD Qualified Code(s): J44.9 - Chronic obstructive pulmonary disease, unspecified Is this a current diagnosis for this admission?: Yes (3) IHSS (idiopathic hypertrophic subaortic stenosis) Is this a current diagnosis for this admission?: Yes (4) Essential (primary) hypertension Is this a current diagnosis for this admission?: Yes - Time Time Spent with patient: 25-34 minutes Level of Care: IMCU
[2020-03-14] MEDS: POTASSI CL 20 MEQ/D5-1/2NS 1L 1,000 ML IV PRN (00:19)
[2020-03-14 05:18] LABS: ABSOLUTE LYMPHOCYTES (AUTO) 1.3 10^3/uL (0.5-4.7); ABSOLUTE MONOCYTES (AUTO) 0.9 10^3/uL (0.1-1.4); ABSOLUTE NEUT (AUTO) 5.2 10^3/uL (1.7-8.2); BASOPHILS % (AUTO) 0.5 % (0-2); HEMATOCRIT 33.2 % (36.0-47.0); HEMOGLOBIN 10.5 g/dL (12.0-15.5); LYMPHOCYTES % (AUTO) 17.8 % (13-45); MEAN CORPUSCULAR HEMOGLOBIN 22.8 pg (27.0-33.4); MEAN CORPUSCULAR HGB CONC 31.8 g/dL (32.0-36.0); MEAN CORPUSCULAR VOLUME 72 fl (80-97); MONOCYTES % (AUTO) 12.5 % (3-13); PLATELET COUNT 270 10^3/uL (150-450); RED BLOOD COUNT 4.63 10^6/uL (3.72-5.28); RED CELL DISTRIBUTION WIDTH 23.4 % (11.5-14.0); SEGMENTED NEUTROPHILS % (AUTO) 69.2 % (42-78); TOTAL CELLS COUNTED % (AUTO) 100 %; WHITE BLOOD COUNT 7.5 10^3/uL (4.0-10.5)
[2020-03-14] MEDS: DEXAMETHASONE SOD PHOSPHATE INJ 4 MG/1 ML VIAL IV SCH ×2 (05:28→19:40)
[2020-03-14] MEDS: HEPARIN SOD (PORCINE) 5,000 UNIT/ML 1 ML VIAL SUBCUT SCH ×2 (05:28→14:01)
[2020-03-14] MEDS: CLONIDINE HCL 0.1 MG TABLET PO SCH ×2 (05:28→14:01)
[2020-03-14] MEDS: ACETAMINOPHEN 325 MG TABLET PO SCH ×2 (05:29→14:01)
[2020-03-14] MEDS: METOPROLOL TARTRATE 50 MG TABLET PO SCH ×2 (05:29→19:40)
[2020-03-14 05:36] LABS: ALBUMIN 3.3 g/dL (3.5-5.0); ALKALINE PHOSPHATASE 64 U/L (38-126); ASPARTATE AMINO TRANSFERASE 26 U/L (14-36); BILIRUBIN,TOTAL 0.5 mg/dL (0.2-1.3); TOTAL PROTEIN 6.9 g/dL (6.3-8.2)
[2020-03-14] MEDS: FLUTICASONE/UMECLIDIN/VILANTER 100-62.5-25 MCG/DOSE IH SCH (09:11)
--- NOTE | 2020-03-14 11:35 | PDOC PROGRESS REPORT ---
Subjective Progress Note for:: 03/14/20 Subjective:: Patient is currently doing same According to the nursing staff no other events happen Admitted for the COVID Reason For Visit: COPD R/O COVID, EXPOSURE TO SARS COV 2 INFECTION Physical Exam Vital Signs: Temp Pulse Resp BP Pulse Ox 99.3 F 95 17 177/115 H 95 03/13/20 07:55 03/14/20 07:00 03/13/20 07:55 03/13/20 07:55 03/13/20 07:55 Intake & Output 03/13/20 03/14/20 03/15/20 06:59 06:59 06:59 Intake Total 0 995 Output Total 500 500 Balance -500 495 Weight 49.2 kg 45.6 kg Results Laboratory Results: 03/14/20 04:25 03/11/20 07:17 03/14/20 03/14/20 04:25 04:25 WBC 7.5 RBC 4.63 Hgb 10.5 L Hct 33.2 L MCV 72 L MCH 22.8 L MCHC 31.8 L RDW 23.4 H Plt Count 270 Seg Neutrophils % 69.2 Total Bilirubin 0.5 AST 26 Alkaline Phosphatase 64 Total Protein 6.9 Albumin 3.3 L 03/10/20 03/10/20 03/11/20 22:33 22:33 03:40 Creatine Kinase 225 H CK-MB (CK-2) 0.54 Troponin I < 0.012 < 0.012 NT-Pro-B Natriuret Pep 03/11/20 03/11/20 03/11/20 07:17 07:17 07:17 Creatine Kinase 368 H CK-MB (CK-2) 0.80 Troponin I < 0.012 NT-Pro-B Natriuret Pep 309 03/11/20 03/11/20 03/11/20 13:54 13:54 19:34 Creatine Kinase 296 H 250 H CK-MB (CK-2) 0.87 Troponin I < 0.012 NT-Pro-B Natriuret Pep 03/11/20 19:34 Creatine Kinase CK-MB (CK-2) 0.63 Troponin I 0.015 NT-Pro-B Natriuret Pep Impressions: Chest X-Ray 03/10/20 21:52 IMPRESSION: No acute cardiopulmonary process copyright 2011 [employer]- All Rights Reserved Head CT 03/12/20 00:00 IMPRESSION: No acute intracranial findings. Assessment & Plan - Diagnosis (1) Altered mental status Qualifiers: Altered mental status type: somnolence Qualified Code(s): R40.0 - S omnolence Is this a current diagnosis for this admission?: Yes (2) COPD exacerbation Is this a current diagnosis for this admission?: Yes (3) COVID-19 Is this a current diagnosis for this admission?: Yes (4) Decreased oral intake Is this a current diagnosis for this admission?: Yes (5) Essential (primary) hypertension Is this a current diagnosis for this admission?: Yes (6) Hypertension Qualifiers: Hypertension type: essential hypertension Qualified Code(s): I10 - Essential (primary) hypertension Is this a current diagnosis for this admission?: Yes - Time Time Spent with patient: 15-24 minutes Level of Care: IMCU Medications reviewed and adjusted accordingly: Yes Anticipated discharge: Other Within: Other - Plan Summary Plan Summary: Review the patient's chart vital signs discussed with the nursing staff during the visit to see of the ppe
[2020-03-15] MEDS: ACETAMINOPHEN 325 MG TABLET PO SCH ×4 (01:12→21:00)
[2020-03-15] MEDS: HEPARIN SOD (PORCINE) 5,000 UNIT/ML 1 ML VIAL SUBCUT SCH ×4 (01:12→20:59)
[2020-03-15] MEDS: CLONIDINE HCL 0.1 MG TABLET PO SCH ×2 (01:12→05:15)
[2020-03-15] MEDS: DEXAMETHASONE SOD PHOSPHATE INJ 4 MG/1 ML VIAL IV SCH ×2 (05:16→17:31)
[2020-03-15] MEDS: METOPROLOL TARTRATE 50 MG TABLET PO SCH ×2 (05:20→17:31)
--- NOTE | 2020-03-15 09:36 | PDOC PROGRESS REPORT ---
Subjective Progress Note for:: 03/15/20 Subjective:: Patient is currently doing same According to the nursing staff no other events happen Admitted for the COVID Patient's daughter wants to patient's to treat with the blood pressure medicines and want some IV antibiotics Patient still confused Patient still maintain the DNR but daughter wants to continue some home medications We will treat the patient's clonidine's patch because po still a challenge Reason For Visit: COPD R/O COVID, EXPOSURE TO SARS COV 2 INFECTION Physical Exam Vital Signs: Temp Pulse Resp BP Pulse Ox 97.7 F 99 18 191/113 H 96 03/15/20 08:13 03/15/20 08:15 03/15/20 08:13 03/15/20 08:15 03/15/20 08:13 Intake & Output 03/14/20 03/15/20 03/16/20 06:59 06:59 06:59 Intake Total 995 Output Total 500 0 Balance 495 0 Weight 45.6 kg 44.9 kg Results Laboratory Results: 03/14/20 04:25 03/11/20 07:17 03/10/20 03/10/20 03/11/20 22:33 22:33 03:40 Creatine Kinase 225 H CK-MB (CK-2) 0.54 Troponin I < 0.012 < 0.012 NT-Pro-B Natriuret Pep 03/11/20 03/11/20 03/11/20 07:17 07:17 07:17 Creatine Kinase 368 H CK-MB (CK-2) 0.80 Troponin I < 0.012 NT-Pro-B Natriuret Pep 309 03/11/20 03/11/20 03/11/20 13:54 13:54 19:34 Creatine Kinase 296 H 250 H CK-MB (CK-2) 0.87 Troponin I < 0.012 NT-Pro-B Natriuret Pep 03/11/20 19:34 Creatine Kinase CK-MB (CK-2) 0.63 Troponin I 0.015 NT-Pro-B Natriuret Pep Impressions: Chest X-Ray 03/10/20 21:52 IMPRESSION: No acute cardiopulmonary process copyright 2011 [employer]- All Rights Reserved Head CT 03/12/20 00:00 IMPRESSION: No acute intracranial findings. Assessment & Plan - Diagnosis (1) Altered mental status Qualifiers: Altered mental status type: somnolence Qualified Code(s): R40.0 - Somnolence Is this a current diagnosis for this admission?: Yes (2) COPD exacerbation Is this a current diagnosis for this admission?: Yes (3) COVID-19 Is this a current diagnosis for this admission?: Yes (4) Decreased oral intake Is this a current diagnosis for this admission?: Yes (5) Essential (primary) hypertension Is this a current diagnosis for this admission?: Yes (6) Hypertension Qualifiers: Hypertension type: essential hypertension Qualified Code(s): I10 - Ess ential (primary) hypertension Is this a current diagnosis for this admission?: Yes - Time Time Spent with patient: 15-24 minutes Level of Care: IMCU Medications reviewed and adjusted accordingly: Yes Anticipated discharge: Other Within: Other - Plan Summary Plan Summary: Discussed with the daughter overall prognosis poor The patient is still hanging daughter wants to continue some p.o. medication and will just treat We will treat the patient's blood pressures with the patch We will start some IV Rocephin We will repeat the blood work
[2020-03-15] MEDS: CEFTRIAXONE 1 GM/D5W RTU 1 GM/50 ML RTUPB IV SCH (10:33)
[2020-03-15] MEDS: FLUTICASONE/UMECLIDIN/VILANTER 100-62.5-25 MCG/DOSE IH SCH (10:34)
[2020-03-15] MEDS: CLONIDINE 0.3 MG/24 HR PATCH.TDWK TD SCH (10:34)
[2020-03-15] MEDS: POTASSI CL 20 MEQ/D5-1/2NS 1L 1,000 ML IV PRN (12:16)
[2020-03-15] MEDS ORDERED: DEXAMETHASONE SOD PHOSPHATE INJ 4 MG/1 ML VIAL ONE (17:07)
[2020-03-16] MEDS: POTASSI CL 20 MEQ/D5-1/2NS 1L 1,000 ML IV PRN ×2 (02:51→17:24)
[2020-03-16] MEDS: DEXAMETHASONE SOD PHOSPHATE INJ 4 MG/1 ML VIAL IV SCH ×2 (05:16→17:15)
[2020-03-16] MEDS: HEPARIN SOD (PORCINE) 5,000 UNIT/ML 1 ML VIAL SUBCUT SCH ×3 (05:16→22:42)
[2020-03-16] MEDS: METOPROLOL TARTRATE 50 MG TABLET PO SCH ×2 (05:17→17:16)
[2020-03-16] MEDS: ACETAMINOPHEN 325 MG TABLET PO SCH ×3 (05:17→22:39)
[2020-03-16 07:29] LABS: ABSOLUTE LYMPHOCYTES (AUTO) 1.3 10^3/uL (0.5-4.7); ABSOLUTE MONOCYTES (AUTO) 0.6 10^3/uL (0.1-1.4); ABSOLUTE NEUT (AUTO) 10.1 10^3/uL (1.7-8.2); BASOPHILS % (AUTO) 0.4 % (0-2); EOSINOPHILS % (AUTO) 0.3 % (0-6); HEMATOCRIT 35.4 % (36.0-47.0); HEMOGLOBIN 11.3 g/dL (12.0-15.5); MEAN CORPUSCULAR HEMOGLOBIN 23.3 pg (27.0-33.4); MEAN CORPUSCULAR VOLUME 73 fl (80-97); MONOCYTES % (AUTO) 5.1 % (3-13); PLATELET COUNT 254 10^3/uL (150-450); RED BLOOD COUNT 4.86 10^6/uL (3.72-5.28); SEGMENTED NEUTROPHILS % (AUTO) 83.2 % (42-78); TOTAL CELLS COUNTED % (AUTO) 100 %; WHITE BLOOD COUNT 12.1 10^3/uL (4.0-10.5)
[2020-03-16 07:59] LABS: ANION GAP 9 (5-19); BLOOD UREA NITROGEN 23 mg/dL (7-20); CALCIUM 10.2 mg/dL (8.4-10.2); CARBON DIOXIDE 23 mmol/L (22-30); CHLORIDE 106 mmol/L (98-107); GLUCOSE 115 mg/dL (75-110); POTASSIUM 4.1 mmol/L (3.6-5.0)
[2020-03-16] MEDS: CEFTRIAXONE 1 GM/D5W RTU 1 GM/50 ML RTUPB IV SCH (09:33)
[2020-03-16] MEDS: FLUTICASONE/UMECLIDIN/VILANTER 100-62.5-25 MCG/DOSE IH SCH (09:34)
[2020-03-16] MEDS: HYDRALAZINE HCL INJ/PF 20 MG/1 ML SDV IV PRN ×2 (11:15→21:16)
--- NOTE | 2020-03-16 17:33 | PDOC PROGRESS REPORT ---
Subjective Progress Note for:: 03/16/20 Subjective:: She has COVID-19, symptoms and signs suggest a stroke, MRI could not be obtained because of the COVID-19, patient's conditions remains precarious, repeat chest x-ray, continue present treatment strategy Reason For Visit: COPD R/O COVID, EXPOSURE TO SARS COV 2 INFECTION Physical Exam Vital Signs: Temp Pulse Resp BP Pulse Ox 98.5 F 117 H 18 200/110 H 96 03/16/20 11:08 03/16/20 14:00 03/16/20 11:08 03/16/20 12:20 03/16/20 11:08 Intake & Output 03/15/20 03/16/20 03/17/20 06:59 06:59 06:59 Intake Total 2049 105 Output Total 0 0 Balance 0 2049 105 Weight 44.9 kg 44.9 kg Results Laboratory Results: 03/16/20 07:05 03/16/20 07:05 03/16/20 03/16/20 07:05 07:05 WBC 12.1 H RBC 4.86 Hgb 11.3 L Hct 35.4 L MCV 73 L MCH 23.3 L MCHC 32.0 RDW 23.0 H Plt Count 254 Seg Neutrophils % 83.2 H Sodium 138.0 Potassium 4.1 Chloride 106 Carbon Dioxide 23 Anion Gap 9 BUN 23 H Creatinine 0.65 Est GFR ( Amer) > 60 Glucose 115 H Calcium 10.2 03/11/20 07:17 Blood Blood Culture - Final NO GROWTH IN 5 DAYS 03/11/20 07:35 Blood Blood Culture - Final NO GROWTH IN 5 DAYS 03/10/20 03/10/20 03/11/20 22:33 22:33 03:40 Creatine Kinase 225 H CK-MB (CK-2) 0.54 Troponin I < 0.012 < 0.012 NT-Pro-B Natriuret Pep 03/11/20 03/11/20 03/11/20 07:17 07:17 07:17 Creatine Kinase 368 H CK-MB (CK-2) 0.80 Troponin I < 0.012 NT-Pro-B Natriuret Pep 309 03/11/20 03/11/20 03/11/20 13:54 13:54 19:34 Creatine Kinase 296 H 250 H CK-MB (CK-2) 0.87 Troponin I < 0.012 NT-Pro-B Natriuret Pep 03/11/20 19:34 Creatine Kinase CK-MB (CK-2) 0.63 Troponin I 0.015 NT-Pro-B Natriuret Pep Impressions: Chest X-Ray 03/10/20 21:52 IMPRESSION: No acute cardiopulmonary process copyright 2011 [employer]- All Rights Reserved Head CT 03/12/20 00:00 IMPRESSION: No acute intracranial findings. Assessment & Plan - Diagnosis (1) COVID-19 Is this a current diagnosis for this admission?: Yes Plan: Continue dexamethasone (2) COPD (chronic obstructive pulmonary disease) Qualifiers: COPD type: unspecified COPD Qualified Code(s): J44.9 - Chronic obstructive pulmonary disease, unspecified Is this a current diagnosis for this admission?: Yes (3) IHSS (idiopathic hypertrophic subaortic stenosis) Is this a current diagnosis for this admission?: Yes (4) Essential (primary) hypertension Is this a current diagnosis for this admission?: Yes (5) CVA (cerebral vascular accident) Qualifiers: CVA mechanism: unspecified Qualified Code(s): I63.9 - Cerebral infarction, unspecified Is this a current diagnosis for this admission?: Yes - Time Time Spent with patient: 35 or more minutes Level of Care: IMCU Medications reviewed and adjusted accordingly: Yes
[2020-03-16] MEDS: DEXAMETHASONE SOD PHOS INJ 10 MG/1 ML VIAL IV SCH (18:18)
--- NOTE | 2020-03-16 19:04 | RADIOLOGY REPORT (SQ) ---
EXAM DESCRIPTION: CHEST SINGLE VIEW IMAGES COMPLETED DATE/TIME: 03/16/2020 6:51 pm REASON FOR STUDY: pneumonia COMPARISON: 03/10/2020 EXAM PARAMETERS: NUMBER OF VIEWS: One view. TECHNIQUE: Single frontal radiographic view of the chest acquired. RADIATION DOSE: NA LIMITATIONS: None. FINDINGS: LUNGS AND PLEURA: No opacities, masses or pneumothorax. No pleural effusion. MEDIASTINUM AND HILAR STRUCTURES: No masses. Contour normal. HEART AND VASCULAR STRUCTURES: Heart normal in size. Normal vasculature. BONES: No acute findings. HARDWARE: None in the chest. OTHER: No other significant finding. IMPRESSION: NO ACUTE RADIOGRAPHIC FINDING IN THE CHEST. TECHNICAL DOCUMENTATION: JOB ID: [id number] 2010 [employer]- All Rights Reserved Reading location - IP/workstation name: [email or web address]
[2020-03-17] MEDS: METOPROLOL TARTRATE 50 MG TABLET PO SCH ×2 (05:07→18:42)
[2020-03-17] MEDS: ACETAMINOPHEN 325 MG TABLET PO SCH ×3 (05:08→21:08)
[2020-03-17] MEDS: DEXAMETHASONE SOD PHOS INJ 10 MG/1 ML VIAL IV SCH ×2 (05:20→18:46)
[2020-03-17 05:40] LABS: ANION GAP 7 (5-19); BLOOD UREA NITROGEN 22 mg/dL (7-20); CALCIUM 10.1 mg/dL (8.4-10.2); CARBON DIOXIDE 23 mmol/L (22-30); CHLORIDE 106 mmol/L (98-107); GLUCOSE 115 mg/dL (75-110); POTASSIUM 3.9 mmol/L (3.6-5.0)
[2020-03-17] MEDS: POTASSI CL 20 MEQ/D5-1/2NS 1L 1,000 ML IV PRN ×2 (06:42→21:54)
[2020-03-17] MEDS: HEPARIN SOD (PORCINE) 5,000 UNIT/ML 1 ML VIAL SUBCUT SCH ×3 (11:25→21:07)
[2020-03-17] MEDS: VALSARTAN 160 MG TABLET PO SCH (11:26)
[2020-03-17] MEDS: CEFTRIAXONE 1 GM/D5W RTU 1 GM/50 ML RTUPB IV SCH (11:26)
[2020-03-17] MEDS: FLUTICASONE/UMECLIDIN/VILANTER 100-62.5-25 MCG/DOSE IH SCH (11:27)
--- NOTE | 2020-03-17 19:48 | PDOC PROGRESS REPORT ---
Subjective Progress Note for:: 03/17/20 Subjective:: Patient's condition remains poor, she is not communicating, she is not eating, she is not alert enough to eat food orally conditions remain poor, she is a DNR status she was seen today by the bedside Reason For Visit: COPD R/O COVID, EXPOSURE TO SARS COV 2 INFECTION Physical Exam Vital Signs: Temp Pulse Resp BP Pulse Ox 97.5 F 101 H 16 171/113 H 99 03/16/20 20:57 03/17/20 14:00 03/16/20 20:57 03/16/20 21:29 03/16/20 21:29 Intake & Output 03/16/20 03/17/20 03/18/20 06:59 06:59 06:59 Intake Total 2049 1980 Output Total 200 580 Balance 2049 1781 -580 Weight 44.9 kg 46 kg 46 kg General appearance: PRESENT: other - Poorly responsive to verbal command Respiratory exam: PRESENT: rhonchi Cardiovascular exam: PRESENT: +S1, +S2 GI/Abdominal exam: PRESENT: soft Results Laboratory Results: 03/16/20 07:05 03/17/20 04:14 03/17/20 04:14 Sodium 135.9 L Potassium 3.9 Chloride 106 Carbon Dioxide 23 Anion Gap 7 BUN 22 H Creatinine 0.72 Est GFR ( Amer) > 60 Glucose 115 H Calcium 10.1 03/10/20 03/10/20 03/11/20 22:33 22:33 03:40 Creatine Kinase 225 H CK-MB (CK-2) 0.54 Troponin I < 0.012 < 0.012 NT-Pro-B Natriuret Pep 03/11/20 03/11/20 03/11/20 07:17 07:17 07:17 Creatine Kinase 368 H CK-MB (CK-2) 0.80 Troponin I < 0.012 NT-Pro-B Natriuret Pep 309 03/11/20 03/11/20 03/11/20 13:54 13:54 19:34 Creatine Kinase 296 H 250 H CK-MB (CK-2) 0.87 Troponin I < 0.012 NT-Pro-B Natriuret Pep 03/11/20 19:34 Creatine Kinase CK-MB (CK-2) 0.63 Troponin I 0.015 NT-Pro-B Natriuret Pep Impressions: Head CT 03/12/20 00:00 IMPRESSION: No acute intracranial findings. Chest X-Ray 03/16/20 00:00 IMPRESSION: NO ACUTE RADIOGRAPHIC FINDING IN THE CHEST. Assessment & Plan - Diagnosis (1) COVID-19 Is this a current diagnosis for this admission?: Yes Plan: Continue dexamethasone (2) COPD (chronic obstructive pulmonary disease) Qualifiers: COPD type: unspecified COPD Qualified Code(s): J44.9 - Chronic obstructive pulmonary disease, unspecified Is this a current diagnosis for this admission?: Yes (3) IHSS (idiopathic hypertrophic subaortic stenosis) Is this a current diagnosis for this admission?: Yes (4) Essential (primary) hypertension Is this a current diagnosis for this admission?: Yes (5) CVA (cerebral vascular accident) Qualifiers: CVA mechanism: unspecified Qualified Code(s): I63.9 - Cerebral infarction, unspecified Is this a current diagnosis for this admission?: Yes - Time Time Spent with patient: 25-34 minutes Level of Care: [facility]
[2020-03-18] MEDS: METOPROLOL TARTRATE 50 MG TABLET PO SCH ×2 (05:09→18:14)
[2020-03-18] MEDS: HEPARIN SOD (PORCINE) 5,000 UNIT/ML 1 ML VIAL SUBCUT SCH ×3 (05:09→22:29)
[2020-03-18] MEDS: ACETAMINOPHEN 325 MG TABLET PO SCH ×3 (05:10→22:29)
[2020-03-18 05:39] LABS: ANION GAP 7 (5-19); BLOOD UREA NITROGEN 18 mg/dL (7-20); CALCIUM 10.2 mg/dL (8.4-10.2); CARBON DIOXIDE 24 mmol/L (22-30); CHLORIDE 108 mmol/L (98-107); GLUCOSE 99 mg/dL (75-110); POTASSIUM 3.9 mmol/L (3.6-5.0)
[2020-03-18] MEDS: DEXAMETHASONE SOD PHOS INJ 10 MG/1 ML VIAL IV SCH (05:58)
[2020-03-18] MEDS: VALSARTAN 160 MG TABLET PO SCH (10:34)
[2020-03-18] MEDS: FLUTICASONE/UMECLIDIN/VILANTER 100-62.5-25 MCG/DOSE IH SCH (10:35)
[2020-03-18] MEDS: CEFTRIAXONE 1 GM/D5W RTU 1 GM/50 ML RTUPB IV SCH (10:40)
[2020-03-18] MEDS: POTASSI CL 20 MEQ/D5-1/2NS 1L 1,000 ML IV PRN (13:08)
--- NOTE | 2020-03-18 16:48 | PDOC PROGRESS REPORT ---
Subjective Progress Note for:: 03/18/20 Subjective:: Patient with COVID-19 seen by the bedside not particularly engaging in any meaningful conversation Reason For Visit: COPD R/O COVID, EXPOSURE TO SARS COV 2 INFECTION Physical Exam Vital Signs: Temp Pulse Resp BP Pulse Ox 98.1 F 66 20 201/113 H 96 03/18/20 00:00 03/18/20 14:00 03/18/20 00:00 03/18/20 00:00 03/18/20 03:10 Intake & Output 03/17/20 03/18/20 03/19/20 06:59 06:59 06:59 Intake Total 1981 1000 1000 Output Total 200 930 Balance 1781 70 1000 Weight 46 kg 46 kg General appearance: PRESENT: thin Respiratory exam: PRESENT: rhonchi Cardiovascular exam: PRESENT: +S1, +S2 Results Laboratory Results: 03/16/20 07:05 03/18/20 04:49 03/18/20 04:49 Sodium 138.6 Potassium 3.9 Chloride 108 H Carbon Dioxide 24 Anion Gap 7 BUN 18 Creatinine 0.70 Est GFR ( Amer) > 60 Glucose 99 Calcium 10.2 03/10/20 03/10/20 03/11/20 22:33 22:33 03:40 Creatine Kinase 225 H CK-MB (CK-2) 0.54 Troponin I < 0.012 < 0.012 NT-Pro-B Natriuret Pep 03/11/20 03/11/20 03/11/20 07:17 07:17 07:17 Creatine Kinase 368 H CK-MB (CK-2) 0.80 Troponin I < 0.012 NT-Pro-B Natriuret Pep 309 03/11/20 03/11/20 03/11/20 13:54 13:54 19:34 Creatine Kinase 296 H 250 H CK-MB (CK-2) 0.87 Troponin I < 0.012 NT-Pro-B Natriuret Pep 03/11/20 19:34 Creatine Kinase CK-MB (CK-2) 0.63 Troponin I 0.015 NT-Pro-B Natriuret Pep Impressions: Head CT 03/12/20 00:00 IMPRESSION: No acute intracranial findings. Chest X-Ray 03/16/20 00:00 IMPRESSION: NO ACUTE RADIOGRAPHIC FINDING IN THE CHEST. Assessment & Plan - Diagnosis (1) COVID-19 Is this a current diagnosis for this admission?: Yes Plan: Continue dexamethasone (2) COPD (chronic obstructive pulmonary disease) Qualifiers: COPD type: unspecified COPD Qualified Code(s): J44.9 - Chronic obstructive pulmonary disease, unspecified Is this a current diagnosis for this admission?: Yes (3) IHSS (idiopathic hypertrophic subaortic stenosis) Is this a current diagnosis for this admission?: Yes (4) Essential (primary) hypertension Is this a current diagnosis for this admission?: Yes (5) CVA (cerebral vascular accident) Qualifiers: CVA mechanism: unspecified Qualified Code(s): I63.9 - Cerebral infarction, unspecified Is this a current diagnosis for this admission?: Yes Plan: She probably have a stroke there was CT had was negative but clinically is a stroke - Time Time Spent with patient: 35 or more minutes Level of Care: [facility]
[2020-03-18] MEDS: DEXAMETHASONE SOD PHOSPHATE INJ 4 MG/1 ML VIAL IV SCH (18:13)
[2020-03-19] MEDS: HYDRALAZINE HCL INJ/PF 20 MG/1 ML SDV IV PRN ×3 (02:03→21:49)
[2020-03-19] MEDS: POTASSI CL 20 MEQ/D5-1/2NS 1L 1,000 ML IV PRN (02:24)
[2020-03-19] MEDS: METOPROLOL TARTRATE 50 MG TABLET PO SCH ×2 (05:43→17:49)
[2020-03-19] MEDS: ACETAMINOPHEN 325 MG TABLET PO SCH ×3 (05:43→21:50)
[2020-03-19] MEDS: CEFTRIAXONE 1 GM/D5W RTU 1 GM/50 ML RTUPB IV SCH (09:03)
[2020-03-19] MEDS: HEPARIN SOD (PORCINE) 5,000 UNIT/ML 1 ML VIAL SUBCUT SCH ×2 (16:06→21:48)
[2020-03-19] MEDS: DEXAMETHASONE SOD PHOSPHATE INJ 4 MG/1 ML VIAL IV SCH ×2 (16:06→19:23)
[2020-03-19] MEDS: VALSARTAN 160 MG TABLET PO SCH (16:07)
[2020-03-19] MEDS: FLUTICASONE/UMECLIDIN/VILANTER 100-62.5-25 MCG/DOSE IH SCH (16:07)
--- NOTE | 2020-03-19 18:14 | PDOC PROGRESS REPORT ---
Subjective Progress Note for:: 03/19/20 Subjective:: Patient seen by the bedside, she has COVID-19 with clinical stroke, unable to have diffusion imaging, CT scan negative, poor sensitivity for stroke. I spoke to the daughter about her mother's condition, she will respond to sternal rub and all she does is grimaces and she falls back to unresponsiveness, she continues to be n.p.o. prognosis is very poor, patient not expected to do well, she is a DNR status, daughter aversive to comfort care. Reason For Visit: COPD R/O COVID, EXPOSURE TO SARS COV 2 INFECTION Physical Exam Vital Signs: Temp Pulse Resp BP Pulse Ox 97.9 F 98 21 H 182/99 H 98 03/19/20 11:45 03/19/20 11:45 03/19/20 11:45 03/19/20 11:45 03/19/20 11:45 Intake & Output 03/18/20 03/19/20 03/20/20 06:59 06:59 06:59 Intake Total 1000 1978 Output Total 930 Balance 70 1978 Weight 46 kg 45.8 kg 45.8 kg Results Laboratory Results: 03/16/20 07:05 03/18/20 04:49 03/10/20 03/10/20 03/11/20 22:33 22:33 03:40 Creatine Kinase 225 H CK-MB (CK-2) 0.54 Troponin I < 0.012 < 0.012 NT-Pro-B Natriuret Pep 03/11/20 03/11/20 03/11/20 07:17 07:17 07:17 Creatine Kinase 368 H CK-MB (CK-2) 0.80 Troponin I < 0.012 NT-Pro-B Natriuret Pep 309 03/11/20 03/11/20 03/11/20 13:54 13:54 19:34 Creatine Kinase 296 H 250 H CK-MB (CK-2) 0.87 Troponin I < 0.012 NT-Pro-B Natriuret Pep 03/11/20 19:34 Creatine Kinase CK-MB (CK-2) 0.63 Troponin I 0.015 NT-Pro-B Natriuret Pep Impressions: Head CT 03/12/20 00:00 IMPRESSION: No acute intracranial findings. Chest X-Ray 03/16/20 00:00 IMPRESSION: NO ACUTE RADIOGRAPHIC FINDING IN THE CHEST. Assessment & Plan - Diagnosis (1) COVID-19 Is this a current diagnosis for this admission?: Yes Plan: Continue dexamethasone (2) COPD (chronic obstructive pulmonary disease) Qualifiers: COPD type: unspecified COPD Qualified Code(s): J44.9 - Chronic obstructive pulmonary disease, unspecified Is this a current diagnosis for this admission?: Yes (3) IHSS (idiopathic hypertrophic subaortic stenosis) Is this a current diagnosis for this admission?: Yes (4) Essential (primary) hypertension Is this a current diagnosis for this admission?: Yes (5) CVA (cerebral vascular accident) Qualifiers: CVA mechanism: unspecified Qualified Code(s): I63.9 - Cerebral infarction, unspecified Is this a current diagnosis for this admission?: Yes Plan: She has stroke clinically not able to obtain diffusion imaging because of COVID - Time Time Spent with patient: 35 or more minutes Level of Care: [facility]
[2020-03-20] MEDS: POTASSI CL 20 MEQ/D5-1/2NS 1L 1,000 ML IV PRN ×2 (00:17→18:40)
[2020-03-20] MEDS: HEPARIN SOD (PORCINE) 5,000 UNIT/ML 1 ML VIAL SUBCUT SCH ×3 (08:08→21:50)
[2020-03-20] MEDS: METOPROLOL TARTRATE 50 MG TABLET PO SCH ×2 (08:08→17:16)
[2020-03-20] MEDS: ACETAMINOPHEN 325 MG TABLET PO SCH ×3 (08:09→21:57)
[2020-03-20] MEDS: FLUTICASONE/UMECLIDIN/VILANTER 100-62.5-25 MCG/DOSE IH SCH (09:09)
[2020-03-20] MEDS: VALSARTAN 160 MG TABLET PO SCH (09:09)
[2020-03-20] MEDS: HYDRALAZINE HCL INJ/PF 20 MG/1 ML SDV IV PRN ×2 (09:10→16:42)
[2020-03-20] MEDS: CEFTRIAXONE 1 GM/D5W RTU 1 GM/50 ML RTUPB IV SCH (09:10)
[2020-03-20] MEDS: DEXAMETHASONE SOD PHOSPHATE INJ 4 MG/1 ML VIAL IV SCH ×2 (20:40→22:55)
--- NOTE | 2020-03-20 21:17 | PDOC PROGRESS REPORT ---
Subjective Progress Note for:: 03/20/20 Subjective:: Patient seen by the bedside, clinical condition about the same, Patient not responding to verbal commands Reason For Visit: COPD R/O COVID, EXPOSURE TO SARS COV 2 INFECTION Physical Exam Vital Signs: Temp Pulse Resp BP Pulse Ox 99.0 F 107 H 18 165/94 H 97 03/20/20 20:00 03/20/20 20:00 03/20/20 20:00 03/20/20 20:00 03/20/20 20:00 Intake & Output 03/19/20 03/20/20 03/21/20 06:59 06:59 06:59 Intake Total 1978 1050 1050 Balance 1978 1050 1050 Weight 45.8 kg 45.8 kg General appearance: PRESENT: no acute distress Eye exam: PRESENT: PERRLA Respiratory exam: PRESENT: clear to auscultation olivier Cardiovascular exam: PRESENT: +S1, +S2 Results Laboratory Results: 03/16/20 07:05 03/18/20 04:49 03/10/20 03/10/20 03/11/20 22:33 22:33 03:40 Creatine Kinase 225 H CK-MB (CK-2) 0.54 Troponin I < 0.012 < 0.012 NT-Pro-B Natriuret Pep 03/11/20 03/11/20 03/11/20 07:17 07:17 07:17 Creatine Kinase 368 H CK-MB (CK-2) 0.80 Troponin I < 0.012 NT-Pro-B Natriuret Pep 309 03/11/20 03/11/20 03/11/20 13:54 13:54 19:34 Creatine Kinase 296 H 250 H CK-MB (CK-2) 0.87 Troponin I < 0.012 NT-Pro-B Natriuret Pep 03/11/20 19:34 Creatine Kinase CK-MB (CK-2) 0.63 Troponin I 0.015 NT-Pro-B Natriuret Pep Impressions: Head CT 03/12/20 00:00 IMPRESSION: No acute intracranial findings. Chest X-Ray 03/16/20 00:00 IMPRESSION: NO ACUTE RADIOGRAPHIC FINDING IN THE CHEST. Assessment & Plan - Diagnosis (1) COVID-19 Is this a current diagnosis for this admission?: Yes Plan: Continue dexamethasone (2) COPD (chronic obstructive pulmonary disease) Qualifiers: COPD type: unspecified COPD Qualified Code(s): J44.9 - Chronic obstructive pulmonary disease, unspecified Is this a current diagnosis for this admission?: Yes (3) IHSS (idiopathic hypertrophic subaortic stenosis) Is this a current diagnosis for this admission?: Yes (4) Essential (primary) hypertension Is this a current diagnosis for this admission?: Yes (5) CVA (cerebral vascular accident) Qualifiers: CVA mechanism: unspecified Qualified Code(s): I63.9 - Cerebral infarction, unspecified Is this a current diagnosis for this admission?: Yes Plan: She has stroke clinically not able to obtain diffusion imaging because of COVID - Time Time Spent with patient: 25-34 minutes Level of Care: [facility]
[2020-03-21] MEDS: HYDRALAZINE HCL INJ/PF 20 MG/1 ML SDV IV PRN ×4 (00:29→19:55)
[2020-03-21] MEDS ORDERED: HYDRALAZINE HCL INJ/PF 20 MG/1 ML SDV ONE (03:12)
[2020-03-21] MEDS: HEPARIN SOD (PORCINE) 5,000 UNIT/ML 1 ML VIAL SUBCUT SCH ×3 (05:16→22:10)
[2020-03-21] MEDS: METOPROLOL TARTRATE 50 MG TABLET PO SCH ×2 (05:17→17:05)
[2020-03-21] MEDS: ACETAMINOPHEN 325 MG TABLET PO SCH ×3 (05:35→22:10)
[2020-03-21] MEDS: DEXAMETHASONE SOD PHOSPHATE INJ 4 MG/1 ML VIAL IV SCH ×2 (08:10→19:55)
[2020-03-21] MEDS: POTASSI CL 20 MEQ/D5-1/2NS 1L 1,000 ML IV PRN ×2 (08:15→22:15)
[2020-03-21] MEDS: FLUTICASONE/UMECLIDIN/VILANTER 100-62.5-25 MCG/DOSE IH SCH (09:04)
[2020-03-21] MEDS: VALSARTAN 160 MG TABLET PO SCH (09:04)
[2020-03-21] MEDS: CEFTRIAXONE 1 GM/D5W RTU 1 GM/50 ML RTUPB IV SCH (09:17)
--- NOTE | 2020-03-21 15:28 | PDOC PROGRESS REPORT ---
Subjective Progress Note for:: 03/21/20 Subjective:: Patient seen by the bedside, she remains unresponsive only grimaces on sternal rub Reason For Visit: COPD R/O COVID, EXPOSURE TO SARS COV 2 INFECTION Physical Exam Vital Signs: Temp Pulse Resp BP Pulse Ox 97.5 F 100 20 175/89 H 98 03/21/20 08:00 03/21/20 14:00 03/21/20 08:00 03/21/20 08:00 03/21/20 08:00 Intake & Output 03/20/20 03/21/20 03/22/20 06:59 06:59 06:59 Intake Total 1050 1050 1001 Balance 1050 1050 1001 Weight 45.8 kg 50.2 kg Results Laboratory Results: 03/16/20 07:05 03/18/20 04:49 03/10/20 03/10/20 03/11/20 22:33 22:33 03:40 Creatine Kinase 225 H CK-MB (CK-2) 0.54 Troponin I < 0.012 < 0.012 NT-Pro-B Natriuret Pep 03/11/20 03/11/20 03/11/20 07:17 07:17 07:17 Creatine Kinase 368 H CK-MB (CK-2) 0.80 Troponin I < 0.012 NT-Pro-B Natriuret Pep 309 03/11/20 03/11/20 03/11/20 13:54 13:54 19:34 Creatine Kinase 296 H 250 H CK-MB (CK-2) 0.87 Troponin I < 0.012 NT-Pro-B Natriuret Pep 03/11/20 19:34 Creatine Kinase CK-MB (CK-2) 0.63 Troponin I 0.015 NT-Pro-B Natriuret Pep Impressions: Head CT 03/12/20 00:00 IMPRESSION: No acute intracranial findings. Chest X-Ray 03/16/20 00:00 IMPRESSION: NO ACUTE RADIOGRAPHIC FINDING IN THE CHEST. Assessment & Plan - Diagnosis (1) COVID-19 Is this a current diagnosis for this admission?: Yes Plan: Continue dexamethasone (2) COPD (chronic obstructive pulmonary disease) Qualifiers: COPD type: unspecified COPD Qualified Code(s): J44.9 - Chronic obstructive pulmonary disease, unspecified Is this a current diagnosis for this admission?: Yes (3) IHSS (idiopathic hypertrophic subaortic stenosis) Is this a current diagnosis for this admission?: Yes (4) Essential (primary) hypertension Is this a current diagnosis for this admission?: Yes (5) CVA (cerebral vascular accident) Qualifiers: CVA mechanism: unspecified Qualified Code(s): I63.9 - Cerebral infarction, unspecified Is this a current diagnosis for this admission?: Yes - Time Time Spent with patient: 15-24 minutes Level of Care: [facility] Medications reviewed and adjusted accordingly: Yes Anticipated discharge: Hospice Within: Other
[2020-03-22] MEDS: HYDRALAZINE HCL INJ/PF 20 MG/1 ML SDV IV PRN ×5 (04:59→23:58)
[2020-03-22] MEDS: ACETAMINOPHEN 325 MG TABLET PO SCH ×3 (05:00→21:49)
[2020-03-22] MEDS: METOPROLOL TARTRATE 50 MG TABLET PO SCH ×2 (05:00→17:00)
[2020-03-22] MEDS: HEPARIN SOD (PORCINE) 5,000 UNIT/ML 1 ML VIAL SUBCUT SCH ×3 (05:00→21:49)
[2020-03-22] MEDS: CLONIDINE 0.3 MG/24 HR PATCH.TDWK TD SCH (09:22)
[2020-03-22] MEDS: DEXAMETHASONE SOD PHOSPHATE INJ 4 MG/1 ML VIAL IV SCH ×2 (09:22→21:48)
[2020-03-22] MEDS: VALSARTAN 160 MG TABLET PO SCH (09:24)
[2020-03-22] MEDS: FLUTICASONE/UMECLIDIN/VILANTER 100-62.5-25 MCG/DOSE IH SCH (09:25)
[2020-03-22] MEDS: POTASSI CL 20 MEQ/D5-1/2NS 1L 1,000 ML IV PRN (11:56)
--- NOTE | 2020-03-22 14:05 | PDOC PROGRESS REPORT ---
Subjective Progress Note for:: 03/22/20 Subjective:: Patient more awake today, we will get speech evaluation, needs MRI of the brain Reason For Visit: COPD R/O COVID, EXPOSURE TO SARS COV 2 INFECTION Physical Exam Vital Signs: Temp Pulse Resp BP Pulse Ox 98.2 F 90 18 184/88 H 97 03/22/20 07:51 03/22/20 07:51 03/22/20 07:51 03/22/20 09:37 03/22/20 07:51 Intake & Output 03/21/20 03/22/20 03/23/20 06:59 06:59 06:59 Intake Total 1050 1980 95 Balance 1050 1980 95 Weight 50.2 kg 46.2 kg Results Laboratory Results: 03/16/20 07:05 03/18/20 04:49 03/10/20 03/10/20 03/11/20 22:33 22:33 03:40 Creatine Kinase 225 H CK-MB (CK-2) 0.54 Troponin I < 0.012 < 0.012 NT-Pro-B Natriuret Pep 03/11/20 03/11/20 03/11/20 07:17 07:17 07:17 Creatine Kinase 368 H CK-MB (CK-2) 0.80 Troponin I < 0.012 NT-Pro-B Natriuret Pep 309 03/11/20 03/11/20 03/11/20 13:54 13:54 19:34 Creatine Kinase 296 H 250 H CK-MB (CK-2) 0.87 Troponin I < 0.012 NT-Pro-B Natriuret Pep 03/11/20 19:34 Creatine Kinase CK-MB (CK-2) 0.63 Troponin I 0.015 NT-Pro-B Natriuret Pep Impressions: Head CT 03/12/20 00:00 IMPRESSION: No acute intracranial findings. Chest X-Ray 03/16/20 00:00 IMPRESSION: NO ACUTE RADIOGRAPHIC FINDING IN THE CHEST. Assessment & Plan - Diagnosis (1) COVID-19 Is this a current diagnosis for this admission?: Yes Plan: Continue dexamethasone (2) COPD (chronic obstructive pulmonary disease) Qualifiers: COPD type: unspecified COPD Qualified Code(s): J44.9 - Chronic obstructive pulmonary disease, unspecified Is this a current diagnosis for this admission?: Yes (3) IHSS (idiopathic hypertrophic subaortic stenosis) Is this a current diagnosis for this admission?: Yes (4) Essential (primary) hypertension Is this a current diagnosis for this admission?: Yes (5) CVA (cerebral vascular accident) Qualifiers: CVA mechanism: unspecified Qualified Code(s): I63.9 - Cerebral infarction, unspecified Is this a current diagnosis for this admission?: Yes Plan: Consult speech, get MRI of the brain - Time Time Spent with patient: 35 or more minutes Level of Care: [facility] Medications reviewed and adjusted accordingly: Yes Anticipated discharge: Other
[2020-03-22 15:11] LABS: ABSOLUTE LYMPHOCYTES (AUTO) 1.3 10^3/uL (0.5-4.7); ABSOLUTE MONOCYTES (AUTO) 0.5 10^3/uL (0.1-1.4); ABSOLUTE NEUT (AUTO) 7.9 10^3/uL (1.7-8.2); ALBUMIN 3.3 g/dL (3.5-5.0); ALKALINE PHOSPHATASE 65 U/L (38-126); ANION GAP 5 (5-19); ASPARTATE AMINO TRANSFERASE 19 U/L (14-36); BASOPHILS % (AUTO) 0.4 % (0-2); BILIRUBIN,DIRECT 0.1 mg/dL (0.0-0.4); BILIRUBIN,TOTAL 0.5 mg/dL (0.2-1.3); BLOOD UREA NITROGEN 11 mg/dL (7-20); CALCIUM 10.3 mg/dL (8.4-10.2); CARBON DIOXIDE 24 mmol/L (22-30); CHLORIDE 105 mmol/L (98-107); EOSINOPHILS % (AUTO) 0.1 % (0-6); GLUCOSE 109 mg/dL (75-110); HEMATOCRIT 31.7 % (36.0-47.0); HEMOGLOBIN 10.1 g/dL (12.0-15.5); LYMPHOCYTES % (AUTO) 12.9 % (13-45); MEAN CORPUSCULAR HEMOGLOBIN 23.4 pg (27.0-33.4); MEAN CORPUSCULAR VOLUME 73 fl (80-97); MONOCYTES % (AUTO) 5.3 % (3-13); PLATELET COUNT 315 10^3/uL (150-450); POTASSIUM 3.9 mmol/L (3.6-5.0); RED BLOOD COUNT 4.32 10^6/uL (3.72-5.28); RED CELL DISTRIBUTION WIDTH 23.5 % (11.5-14.0); SEGMENTED NEUTROPHILS % (AUTO) 81.3 % (42-78); TOTAL CELLS COUNTED % (AUTO) 100 %; TOTAL PROTEIN 6.7 g/dL (6.3-8.2); WHITE BLOOD COUNT 9.8 10^3/uL (4.0-10.5)
[2020-03-23] MEDS: POTASSI CL 20 MEQ/D5-1/2NS 1L 1,000 ML IV PRN ×2 (03:02→20:27)
[2020-03-23] MEDS: HYDRALAZINE HCL INJ/PF 20 MG/1 ML SDV IV PRN ×4 (05:02→17:50)
[2020-03-23] MEDS: HEPARIN SOD (PORCINE) 5,000 UNIT/ML 1 ML VIAL SUBCUT SCH ×3 (05:02→21:36)
[2020-03-23] MEDS: ACETAMINOPHEN 325 MG TABLET PO SCH ×3 (05:03→21:36)
[2020-03-23] MEDS: METOPROLOL TARTRATE 50 MG TABLET PO SCH ×2 (05:03→17:35)
[2020-03-23 06:40] LABS: ABSOLUTE LYMPHOCYTES (AUTO) 1.9 10^3/uL (0.5-4.7); ABSOLUTE MONOCYTES (AUTO) 0.9 10^3/uL (0.1-1.4); ABSOLUTE NEUT (AUTO) 8.5 10^3/uL (1.7-8.2); BASOPHILS % (AUTO) 0.3 % (0-2); EOSINOPHILS % (AUTO) 0.1 % (0-6); HEMATOCRIT 32.7 % (36.0-47.0); HEMOGLOBIN 10.2 g/dL (12.0-15.5); LYMPHOCYTES % (AUTO) 16.4 % (13-45); MEAN CORPUSCULAR HEMOGLOBIN 23.2 pg (27.0-33.4); MEAN CORPUSCULAR HGB CONC 31.3 g/dL (32.0-36.0); MEAN CORPUSCULAR VOLUME 74 fl (80-97); MONOCYTES % (AUTO) 7.7 % (3-13); PLATELET COUNT 314 10^3/uL (150-450); RED BLOOD COUNT 4.42 10^6/uL (3.72-5.28); RED CELL DISTRIBUTION WIDTH 23.3 % (11.5-14.0); SEGMENTED NEUTROPHILS % (AUTO) 75.5 % (42-78); TOTAL CELLS COUNTED % (AUTO) 100 %; WHITE BLOOD COUNT 11.3 10^3/uL (4.0-10.5)
[2020-03-23 06:55] LABS: ALBUMIN 3.4 g/dL (3.5-5.0); ALKALINE PHOSPHATASE 67 U/L (38-126); ANION GAP 6 (5-19); ASPARTATE AMINO TRANSFERASE 19 U/L (14-36); BILIRUBIN,TOTAL 0.5 mg/dL (0.2-1.3); BLOOD UREA NITROGEN 11 mg/dL (7-20); CALCIUM 10.3 mg/dL (8.4-10.2); CARBON DIOXIDE 25 mmol/L (22-30); CHLORIDE 104 mmol/L (98-107); GLUCOSE 108 mg/dL (75-110); POTASSIUM 3.7 mmol/L (3.6-5.0); TOTAL PROTEIN 6.6 g/dL (6.3-8.2)
[2020-03-23] MEDS: DEXAMETHASONE SOD PHOSPHATE INJ 4 MG/1 ML VIAL IV SCH ×2 (07:47→22:30)
[2020-03-23] MEDS ORDERED: PHARMACY COMMUNICATION ORDER MC NR (08:45)
--- NOTE | 2020-03-23 09:45 | RADIOLOGY REPORT (SQ) ---
EXAM DESCRIPTION: MRI HEAD WITHOUT IMAGES COMPLETED DATE/TIME: 03/23/2020 9:24 am REASON FOR STUDY: SUSPECT CVA COMPARISON: 11/08/2019, 03/12/2020 TECHNIQUE: Multiplanar imaging includes non-contrasted T1, T2, FLAIR, and diffusion with ADC map seq uences. Images stored on PACS. LIMITATIONS: None. FINDINGS: ANATOMY: No anomalies. Normal vascular flow voids. Pituitary fossa normal. CSF SPACES: Atrophy induced prominence of ventricles and CSF spaces. CEREBRUM: High signal intensity lesions scattered throughout the white matter on FLAIR imaging with d istribution suggesting micro-vascular ischemic changes. No evidence of hemorrhage, mass, or extraaxi al fluid collection. POSTERIOR FOSSA: No signal alteration. No hemorrhage. No edema, masses or mass effect. Internal hansa tory canals, cerebello-pontine angles, mastoids normal. DIFFUSION IMAGING: Negative for acute or sub-acute infarction. ORBITS: No masses. Globes normal. PARANASAL SINUSES: No fluid levels. Mucosa normal. OTHER: No other significant finding. IMPRESSION: ATROPHY AND CHRONIC MICRO-VASCULAR ISCHEMIC CHANGES. OTHERWISE NORMAL MRI OF THE BRAIN W ITHOUT INTRAVENOUS GADOLINIUM CONTRAST. EVIDENCE OF ACUTE STROKE: NO. TECHNICAL DOCUMENTATION: JOB ID: [id number] 2010 [employer]- All Rights Reserved Reading location - IP/workstation name: [email or web address]
[2020-03-23] MEDS: FLUTICASONE/UMECLIDIN/VILANTER 100-62.5-25 MCG/DOSE IH SCH (11:00)
--- NOTE | 2020-03-23 11:09 | RADIOLOGY REPORT (SQ) ---
EXAM DESCRIPTION: KUB/ABDOMEN (SINGLE VIEW) IMAGES COMPLETED DATE/TIME: 03/23/2020 10:52 am REASON FOR STUDY: Check Placement of NG Tube COMPARISON: 03/27/2019 NUMBER OF VIEWS: One view. TECHNIQUE: Supine radiographic image of the abdomen acquired. LIMITATIONS: None. FINDINGS: Limited view the abdomen is obtained for NG tube placement. Catheter tip overlies the mid line at the level of L3. IMPRESSION: Limited view the abdomen demonstrates an NG tube in place. Catheter tip overlies the mi dline at the level of L3. TECHNICAL DOCUMENTATION: JOB ID: [id number] 2010 [employer]- All Rights Reserved Reading location - IP/workstation name: [email or web address]
[2020-03-23] MEDS: VALSARTAN 160 MG TABLET PO SCH (11:36)
[2020-03-23] MEDS ORDERED: CLONIDINE 0.3 MG/24 HR PATCH.TDWK TD ONE (12:00)
--- NOTE | 2020-03-23 13:15 | PDOC PROGRESS REPORT ---
Subjective Progress Note for:: 03/23/20 Subjective:: Patient is more responsive compared to previously, MRI brain negative for stroke Reason For Visit: COPD R/O COVID, EXPOSURE TO SARS COV 2 INFECTION Physical Exam Vital Signs: Temp Pulse Resp BP Pulse Ox 98.3 F 97 20 186/98 H 100 03/23/20 07:52 03/23/20 07:52 03/23/20 07:52 03/23/20 07:52 03/23/20 04:44 Intake & Output 03/22/20 03/23/20 03/24/20 06:59 06:59 06:59 Intake Total 1980 1957 49 Balance 1980 1957 49 Weight 46.2 kg 44.1 kg General appearance: PRESENT: no acute distress Eye exam: PRESENT: PERRLA Respiratory exam: PRESENT: clear to auscultation olivier Cardiovascular exam: PRESENT: +S1, +S2 Neurological exam: PRESENT: alert Results Laboratory Results: 03/23/20 06:18 03/23/20 06:18 03/22/20 03/22/20 03/23/20 14:37 14:37 06:18 WBC 9.8 11.3 H RBC 4.32 4.42 Hgb 10.1 L 10.2 L Hct 31.7 L 32.7 L MCV 73 L 74 L MCH 23.4 L 23.2 L MCHC 32.0 31.3 L RDW 23.5 H 23.3 H Plt Count 315 314 Seg Neutrophils % 81.3 H 75.5 Sodium 133.7 L Potassium 3.9 Chloride 105 Carbon Dioxide 24 Anion Gap 5 BUN 11 Creatinine 0.59 Est GFR ( Amer) > 60 Glucose 109 Calcium 10.3 H Total Bilirubin 0.5 AST 19 Alkaline Phosphatase 65 Total Protein 6.7 Albumin 3.3 L 03/23/20 06:18 WBC RBC Hgb Hct MCV MCH MCHC RDW Plt Count Seg Neutrophils % Sodium 135.2 L Potassium 3.7 Chloride 104 Carbon Dioxide 25 Anion Gap 6 BUN 11 Creatinine 0.62 Est GFR ( Amer) > 60 Glucose 108 Calcium 10.3 H Total Bilirubin 0.5 AST 19 Alkaline Phosphatase 67 Total Protein 6.6 Albumin 3.4 L 03/10/20 03/10/20 03/11/20 22:33 22:33 03:40 Creatine Kinase 225 H CK-MB (CK-2) 0.54 Troponin I < 0.012 < 0.012 NT-Pro-B Natriuret Pep 03/11/20 03/11/20 03/11/20 07:17 07:17 07:17 Creatine Kinase 368 H CK-MB (CK-2) 0.80 Troponin I < 0.012 NT-Pro-B Natriuret Pep 309 03/11/20 03/11/20 03/11/20 13:54 13:54 19:34 Creatine Kinase 296 H 250 H CK-MB (CK-2) 0.87 Troponin I < 0.012 NT-Pro-B Natriuret Pep 03/11/20 19:34 Creatine Kinase CK-MB (CK-2) 0.63 Troponin I 0.015 NT-Pro-B Natriuret Pep Impressions: Head CT 03/12/20 00:00 IMPRESSION: No acute intracranial findings. Chest X-Ray 03/16/20 00:00 IMPRESSION: NO ACUTE RADIOGRAPHIC FINDING IN THE CHEST. Head MRI 03/23/20 00:00 IMPRESSION: ATROPHY AND CHRONIC MICRO-VASCULAR ISCHEMIC CHANGES. OTHERWISE NORMAL MRI OF THE BRAIN WITHOUT INTRAVENOUS GADOLINIUM CONTRAST. EVIDENCE OF ACUTE STROKE: NO. KUB X-Ray 03/23/20 08:45 IMPRESSION: Limited view the abdomen demonstrates an NG tube in place. Catheter tip overlies the midline at the level of L3. Assessment & Plan - Diagnosis (1) COVID-19 Is this a current diagnosis for this admission?: Yes Plan: She has COVID-19, she has not been able to eat because she was not responsive, she is more alert and responsive today, NG tube inserted, start Jevity (2) COPD (chronic obstructive pulmonary disease) Qualifiers: COPD type: unspecified COPD Qualified Code(s): J44.9 - Chronic obstructive pulmonary disease, unspecified Is this a current diagnosis for this admission?: Yes (3) IHSS (idiopathic hypertrophic subaortic stenosis) Is this a current diagnosis for this admission?: Yes (4) Essential (primary) hypertension Is this a current diagnosis for this admission?: Yes Plan: The blood pressure has been persistently elevated, not well controlled on the IV, with NG tube placement, we can hopefully start the regular p.o. medications inserted through the NG tube (5) CVA (cerebral vascular accident) Qualifiers: CVA mechanism: unspecified Qualified Code(s): I63.9 - Cerebral infarction, unspecified Is this a current diagnosis for this admission?: Yes - Time Time Spent with patient: 35 or more minutes Level of Care: [facility] Medications reviewed and adjusted accordingly: Yes Anticipated discharge: Home, SNF Within: Other
[2020-03-24] MEDS: HYDRALAZINE HCL INJ/PF 20 MG/1 ML SDV IV PRN (04:24)
[2020-03-24] MEDS: HEPARIN SOD (PORCINE) 5,000 UNIT/ML 1 ML VIAL SUBCUT SCH (05:20)
[2020-03-24] MEDS: ACETAMINOPHEN 325 MG TABLET PO SCH ×2 (05:21→13:15)
[2020-03-24] MEDS: METOPROLOL TARTRATE 50 MG TABLET PO SCH ×2 (05:21→17:18)
[2020-03-24] MEDS: ENOXAPARIN SODIUM INJ 40 MG/0.4 ML DISP.SYRIN SUBCUT SCH (08:29)
[2020-03-24] MEDS: AMLODIPINE BESYLATE 10 MG TABLET PO SCH (08:30)
[2020-03-24] MEDS: VALSARTAN 160 MG TABLET PO SCH (09:15)
[2020-03-24] MEDS: FLUTICASONE/UMECLIDIN/VILANTER 100-62.5-25 MCG/DOSE IH SCH (09:45)
[2020-03-24] MEDS: POTASSI CL 20 MEQ/D5-1/2NS 1L 1,000 ML IV PRN (11:50)
[2020-03-24 14:24] LABS: BLOOD UREA NITROGEN 14 mg/dL (7-20); CALCIUM 9.8 mg/dL (8.4-10.2); CARBON DIOXIDE 26 mmol/L (22-30); GLUCOSE 110 mg/dL (75-110); PHOSPHORUS 2.8 mg/dL (2.5-4.5); POTASSIUM 3.7 mmol/L (3.6-5.0)
[2020-03-24 14:30] LABS: ANION GAP 5 (5-19); CHLORIDE 101 mmol/L (98-107)
--- NOTE | 2020-03-24 15:22 | PDOC PROGRESS REPORT ---
Subjective Progress Note for:: 03/24/20 Subjective:: Patient was started on tube feed yesterday, she was seen by speech, n.p.o. still recommended, patient pocketing food in her mouth. She has COVID, physical therapy and rehabilitation is preferred on discharge but the nearest COVID accepting facility is in [facility]. Patient will most likely be discharged home with the daughter when stable for discharge Reason For Visit: COPD R/O COVID, EXPOSURE TO SARS COV 2 INFECTION Physical Exam Vital Signs: Temp Pulse Resp BP Pulse Ox 97.6 F 66 20 153/90 H 98 03/24/20 08:03 03/24/20 08:03 03/24/20 08:03 03/24/20 08:03 03/24/20 08:03 Intake & Output 03/23/20 03/24/20 03/25/20 06:59 06:59 06:59 Intake Total 1957 1470 1149 Output Total 0 Balance 1957 147 1149 Weight 44.1 kg 46.7 kg 46.7 kg General appearance: PRESENT: no acute distress Results Laboratory Results: 03/23/20 06:18 03/24/20 13:50 03/24/20 13:50 Sodium 131.9 L Potassium 3.7 Chloride 101 Carbon Dioxide 26 Anion Gap 5 BUN 14 Creatinine 0.57 Est GFR ( Amer) > 60 Glucose 110 Calcium 9.8 Phosphorus 2.8 Magnesium 1.7 03/10/20 03/10/20 03/11/20 22:33 22:33 03:40 Creatine Kinase 225 H CK-MB (CK-2) 0.54 Troponin I < 0.012 < 0.012 NT-Pro-B Natriuret Pep 03/11/20 03/11/20 03/11/20 07:17 07:17 07:17 Creatine Kinase 368 H CK-MB (CK-2) 0.80 Troponin I < 0.012 NT-Pro-B Natriuret Pep 309 03/11/20 03/11/20 03/11/20 13:54 13:54 19:34 Creatine Kinase 296 H 250 H CK-MB (CK-2) 0.87 Troponin I < 0.012 NT-Pro-B Natriuret Pep 03/11/20 19:34 Creatine Kinase CK-MB (CK-2) 0.63 Troponin I 0.015 NT-Pro-B Natriuret Pep Impressions: Head CT 03/12/20 00:00 IMPRESSION: No acute intracranial findings. Chest X-Ray 03/16/20 00:00 IMPRESSION: NO ACUTE RADIOGRAPHIC FINDING IN THE CHEST. Head MRI 03/23/20 00:00 IMPRESSION: ATROPHY AND CHRONIC MICRO-VASCULAR ISCHEMIC CHANGES. OTHERWISE NORMAL MRI OF THE BRAIN WITHOUT INTRAVENOUS GADOLINIUM CONTRAST. EVIDENCE OF ACUTE STROKE: NO. KUB X-Ray 03/23/20 08:45 IMPRESSION: Limited view the abdomen demonstrates an NG tube in place. Catheter tip overlies the midline at the level of L3. Assessment & Plan - Diagnosis (1) COVID-19 Is this a current diagnosis for this admission?: Yes Plan: Discontinue intravenous dexamethasone, patient already received 10-day course of treatment (2) COPD (chronic obstructive pulmonary disease) Qualifiers: COPD type: unspecified COPD Qualified Code(s): J44.9 - Chronic obstructive pulmonary disease, unspecified Is this a current diagnosis for this admission?: Yes (3) IHSS (idiopathic hypertrophic subaortic stenosis) Is this a current diagnosis for this admission?: Yes (4) Essential (primary) hypertension Is this a current diagnosis for this admission?: Yes Plan: The blood pressure has been persistently elevated, not well controlled on the IV , with NG tube placement, we can hopefully start the regular p.o. medications inserted through the NG tube - Time Time Spent with patient: 25-34 minutes Level of Care: [facility] Medications reviewed and adjusted accordingly: Yes Anticipated discharge: Home Within: Other
[2020-03-25] MEDS: POTASSI CL 20 MEQ/D5-1/2NS 1L 1,000 ML IV PRN ×2 (02:45→17:40)
[2020-03-25 05:53] LABS: BLOOD UREA NITROGEN 10 mg/dL (7-20); CALCIUM 9.6 mg/dL (8.4-10.2); CARBON DIOXIDE 27 mmol/L (22-30); CHLORIDE 104 mmol/L (98-107); GLUCOSE 107 mg/dL (75-110); PHOSPHORUS 2.8 mg/dL (2.5-4.5); POTASSIUM 3.7 mmol/L (3.6-5.0)
[2020-03-25 06:00] LABS: ANION GAP 3 (5-19)
[2020-03-25] MEDS: HYDRALAZINE HCL INJ/PF 20 MG/1 ML SDV IV PRN ×2 (06:02→22:45)
[2020-03-25] MEDS: METOPROLOL TARTRATE 50 MG TABLET PO SCH ×2 (06:03→17:55)
[2020-03-25] MEDS: ACETAMINOPHEN 325 MG TABLET PO SCH ×4 (06:03→22:46)
[2020-03-25] MEDS: AMLODIPINE BESYLATE 10 MG TABLET PO SCH (09:19)
[2020-03-25] MEDS: FLUTICASONE/UMECLIDIN/VILANTER 100-62.5-25 MCG/DOSE IH SCH (09:19)
[2020-03-25] MEDS: VALSARTAN 160 MG TABLET PO SCH (09:19)
[2020-03-25] MEDS: ENOXAPARIN SODIUM INJ 40 MG/0.4 ML DISP.SYRIN SUBCUT SCH (09:19)
--- NOTE | 2020-03-25 16:25 | PDOC PROGRESS REPORT ---
Subjective Progress Note for:: 03/25/20 Subjective:: Patient made progress 2 days ago when she regained consciousness, she is back again into unconsciousness, she pulled the NG tube. I spoke to the daughter about her condition and the need to reinsert NG tube and also to apply restraints to her hand. Patient overall condition remains poor the diffusion imaging negative for stroke, she has underlying conditions the symptoms she is manifesting is due to COVID-19 Reason For Visit: COPD R/O COVID, EXPOSURE TO SARS COV 2 INFECTION Physical Exam Vital Signs: Temp Pulse Resp BP Pulse Ox 98.0 F 90 15 143/75 H 100 03/25/20 11:16 03/25/20 14:00 03/25/20 11:16 03/25/20 11:16 03/25/20 11:16 Intake & Output 03/24/20 03/25/20 03/26/20 06:59 06:59 06:59 Intake Total 1470 2357 Output Total 0 Balance 1470 2357 Weight 46.7 kg 50.5 kg Results Laboratory Results: 03/23/20 06:18 03/25/20 04:48 03/25/20 04:48 Sodium 134.3 L Potassium 3.7 Chloride 104 Carbon Dioxide 27 Anion Gap 3 L BUN 10 Creatinine 0.58 Est GFR ( Amer) > 60 Glucose 107 Calcium 9.6 Phosphorus 2.8 Magnesium 1.8 03/10/20 03/10/20 03/11/20 22:33 22:33 03:40 Creatine Kinase 225 H CK-MB (CK-2) 0.54 Troponin I < 0.012 < 0.012 NT-Pro-B Natriuret Pep 03/11/20 03/11/20 03/11/20 07:17 07:17 07:17 Creatine Kinase 368 H CK-MB (CK-2) 0.80 Troponin I < 0.012 NT-Pro-B Natriuret Pep 309 03/11/20 03/11/20 03/11/20 13:54 13:54 19:34 Creatine Kinase 296 H 250 H CK-MB (CK-2) 0.87 Troponin I < 0.012 NT-Pro-B Natriuret Pep 03/11/20 19:34 Creatine Kinase CK-MB (CK-2) 0.63 Troponin I 0.015 NT-Pro-B Natriuret Pep Impressions: Head CT 07/09/20 00:00 IMPRESSION: No acute intracranial findings. Chest X-Ray 03/16/20 00:00 IMPRESSION: NO ACUTE RADIOGRAPHIC FINDING IN THE CHEST. Head MRI 03/23/20 00:00 IMPRESSION: ATROPHY AND CHRONIC MICRO-VASCULAR ISCHEMIC CHANGES. OTHERWISE NORMAL MRI OF THE BRAIN WITHOUT INTRAVENOUS GADOLINIUM CONTRAST. EVIDENCE OF ACUTE STROKE: NO. KUB X-Ray 03/23/20 08:45 IMPRESSION: Limited view the abdomen demonstrates an NG tube in place. Catheter tip overlies the midline at the level of L3. Assessment & Plan - Diagnosis (1) COVID-19 Is this a current diagnosis for this admission?: Yes (2) COPD (chronic obstructive pulmonary disease) Qualifiers: COPD type: unspecified COPD Qualified Code(s): J44.9 - Chronic obstructive pulmonary disease, unspecified Is this a current diagnosis for this admission?: Yes (3) IHSS (idiopathic hypertrophic subaortic stenosis) Is this a current diagnosis for this admission?: Yes (4) Essential (primary) hypertension Is this a current diagnosis for this admission?: Yes Plan: The blood pressure has been persistently elevated, not well controlled on the IV, with NG tube placement, we can hopefully start the regular p.o. medications inserted through the NG tube (5) Metabolic encephalopathy Is this a current diagnosis for this admission?: Yes - Time Time Spent with patient: 35 or more minutes Level of Care: [facility] Medications reviewed and adjusted accordingly: Yes Anticipated discharge: Home Within: Other
--- NOTE | 2020-03-25 17:49 | RADIOLOGY REPORT (SQ) ---
EXAM DESCRIPTION: CHEST SINGLE VIEW IMAGES COMPLETED DATE/TIME: 03/25/2020 5:27 pm REASON FOR STUDY: NG placement COMPARISON: 03/16/2020 EXAM PARAMETERS: NUMBER OF VIEWS: One view. TECHNIQUE: Single frontal radiographic view of the chest acquired. RADIATION DOSE: NA LIMITATIONS: None. FINDINGS: LUNGS AND PLEURA: No opacities, masses or pneumothorax. No pleural effusion. MEDIASTINUM AND HILAR STRUCTURES: No masses. Contour normal. HEART AND VASCULAR STRUCTURES: Heart normal in size. Normal vasculature. BONES: No acute findings. HARDWARE: NG tube extends into the stomach. The tip of the tube is not seen. The esophagus appears to be tortuous. OTHER: No other significant finding. IMPRESSION: The NG tube extends into the stomach. TECHNICAL DOCUMENTATION: JOB ID: [id number] 2010 [employer]- All Rights Reserved Reading location - IP/workstation name: [email or web address]
[2020-03-26] MEDS: ACETAMINOPHEN 325 MG TABLET PO SCH ×3 (05:57→21:46)
[2020-03-26] MEDS: METOPROLOL TARTRATE 50 MG TABLET PO SCH ×2 (05:58→18:12)
[2020-03-26] MEDS: POTASSI CL 20 MEQ/D5-1/2NS 1L 1,000 ML IV PRN (06:14)
[2020-03-26] MEDS: ENOXAPARIN SODIUM INJ 40 MG/0.4 ML DISP.SYRIN SUBCUT SCH (09:06)
[2020-03-26] MEDS: VALSARTAN 160 MG TABLET PO SCH (09:07)
[2020-03-26] MEDS: AMLODIPINE BESYLATE 10 MG TABLET PO SCH (09:07)
[2020-03-26] MEDS: FLUTICASONE/UMECLIDIN/VILANTER 100-62.5-25 MCG/DOSE IH SCH (09:32)
--- NOTE | 2020-03-26 19:59 | PDOC PROGRESS REPORT ---
Subjective Progress Note for:: 03/26/20 Subjective:: Patient condition stable., She is more responsive today compared to yesterday, she will continue present treatment Reason For Visit: COPD R/O COVID, EXPOSURE TO SARS COV 2 INFECTION Physical Exam Vital Signs: Temp Pulse Resp BP Pulse Ox 98.1 F 61 16 143/71 H 97 03/26/20 19:22 03/26/20 19:22 03/26/20 19:22 03/26/20 19:22 03/26/20 19:22 Intake & Output 03/25/20 03/26/20 03/27/20 06:59 06:59 06:59 Intake Total 2357 2374 Balance 2357 2374 Weight 50.5 kg 50.5 kg Results Laboratory Results: 03/23/20 06:18 03/25/20 04:48 03/10/20 03/10/20 03/11/20 22:33 22:33 03:40 Creatine Kinase 225 H CK-MB (CK-2) 0.54 Troponin I < 0.012 < 0.012 NT-Pro-B Natriuret Pep 03/11/20 03/11/20 03/11/20 07:17 07:17 07:17 Creatine Kinase 368 H CK-MB (CK-2) 0.80 Troponin I < 0.012 NT-Pro-B Natriuret Pep 309 03/11/20 03/11/20 03/11/20 13:54 13:54 19:34 Creatine Kinase 296 H 250 H CK-MB (CK-2) 0.87 Troponin I < 0.012 NT-Pro-B Natriuret Pep 03/11/20 19:34 Creatine Kinase CK-MB (CK-2) 0.63 Troponin I 0.015 NT-Pro-B Natriuret Pep Impressions: Head CT 03/12/20 00:00 IMPRESSION: No acute intracranial findings. Head MRI 03/23/20 00:00 IMPRESSION: ATROPHY AND CHRONIC MICRO-VASCULAR ISCHEMIC CHANGES. OTHERWISE NORMAL MRI OF THE BRAIN WITHOUT INTRAVENOUS GADOLINIUM CONTRAST. EVIDENCE OF ACUTE STROKE: NO. KUB X-Ray 03/23/20 08:45 IMPRESSION: Limited view the abdomen demonstrates an NG tube in place. Catheter tip overlies the midline at the level of L3. Chest X-Ray 03/25/20 00:00 IMPRESSION: The NG tube extends into the stomach. Assessment & Plan - Diagnosis (1) COVID-19 Is this a current diagnosis for this admission?: Yes (2) COPD (chronic obstructive pulmonary disease) Qualifiers: COPD type: unspecified COPD Qualified Code(s): J44.9 - Chronic obstructive pulmonary disease, unspecified Is this a current diagnosis for this admission?: Yes (3) IHSS (idiopathic hypertrophic subaortic stenosis) Is this a current diagnosis for this admission?: Yes (4) Essential (primary) hypertension Is this a current diagnosis for this admission?: Yes (5) Metabolic encephalopathy Is this a current diagnosis for this admission?: Yes - Time Time Spent with patient: 25-34 minutes Level of Care: IMCU Medications reviewed and adjusted accordingly: Yes Anticipated discharge: Home Within: Other
[2020-03-27] MEDS: ENOXAPARIN SODIUM INJ 40 MG/0.4 ML DISP.SYRIN SUBCUT SCH (09:35)
[2020-03-27] MEDS: VALSARTAN 160 MG TABLET PO SCH (09:35)
[2020-03-27] MEDS: AMLODIPINE BESYLATE 10 MG TABLET PO SCH (09:35)
[2020-03-27] MEDS: FLUTICASONE/UMECLIDIN/VILANTER 100-62.5-25 MCG/DOSE IH SCH (09:36)
[2020-03-27] MEDS: POTASSI CL 20 MEQ/D5-1/2NS 1L 1,000 ML IV PRN (09:36)
[2020-03-27] MEDS: ACETAMINOPHEN 325 MG TABLET PO SCH ×3 (15:50→22:01)
[2020-03-27] MEDS: METOPROLOL TARTRATE 50 MG TABLET PO SCH ×2 (17:04→22:02)
--- NOTE | 2020-03-27 19:14 | PDOC PROGRESS REPORT ---
Subjective Progress Note for:: 03/27/20 Subjective:: Patient's condition is fluctuating, alternating between unresponsiveness and responsiveness, today she is somewhat responsive compared to yesterday. Seen by speech, NPO recommended, still on tube feed Reason For Visit: COPD R/O COVID, EXPOSURE TO SARS COV 2 INFECTION Physical Exam Vital Signs: Temp Pulse Resp BP Pulse Ox 98.5 F 82 16 140/66 H 97 03/27/20 15:54 03/27/20 15:54 03/27/20 15:54 03/27/20 15:54 03/27/20 15:54 Intake & Output 03/26/20 03/27/20 03/28/20 06:59 06:59 06:59 Intake Total 2374 1000 468 Balance 2374 1000 468 Weight 50.5 kg 50.5 kg 50.5 kg Results Laboratory Results: 03/23/20 06:18 03/25/20 04:48 03/10/20 03/10/20 03/11/20 22:33 22:33 03:40 Creatine Kinase 225 H CK-MB (CK-2) 0.54 Troponin I < 0.012 < 0.012 NT-Pro-B Natriuret Pep 03/11/20 03/11/20 03/11/20 07:17 07:17 07:17 Creatine Kinase 368 H CK-MB (CK-2) 0.80 Troponin I < 0.012 NT-Pro-B Natriuret Pep 309 03/11/20 03/11/20 03/11/20 13:54 13:54 19:34 Creatine Kinase 296 H 250 H CK-MB (CK-2) 0.87 Troponin I < 0.012 NT-Pro-B Natriuret Pep 03/11/20 19:34 Creatine Kinase CK-MB (CK-2) 0.63 Troponin I 0.015 NT-Pro-B Natriuret Pep Impressions: Head CT 03/12/20 00:00 IMPRESSION: No acute intracranial findings. Head MRI 03/23/20 00:00 IMPRESSION: ATROPHY AND CHRONIC MICRO-VASCULAR ISCHEMIC CHANGES. OTHERWISE NORMAL MRI OF THE BRAIN WITHOUT INTRAVENOUS GADOLINIUM CONTRAST. EVIDENCE OF ACUTE STROKE: NO. KUB X-Ray 03/23/20 08:45 IMPRESSION: Limited view the abdomen demonstrates an NG tube in place. Catheter tip overlies the midline at the level of L3. Chest X-Ray 03/25/20 00:00 IMPRESSION: The NG tube extends into the stomach. Assessment & Plan - Diagnosis (1) COVID-19 Is this a current diagnosis for this admission?: Yes (2) COPD (chronic obstructive pulmonary disease) Qualifiers: COPD type: unspecified COPD Qualified Code(s): J44.9 - Chronic obstructive pulmonary disease, unspecified Is this a current diagnosis for this admission?: Yes (3) IHSS (idiopathic hypertrophic subaortic stenosis) Is this a current diagnosis for this admission?: Yes (4) Essential (primary) hypertension Is this a current diagnosis for this admission?: Yes (5) Metabolic encephalopathy Is this a current diagnosis for this admission?: Yes Plan: Patient with COVID associated encephalopathy, prognosis remains guarded to poor - Time Time Spent with patient: 25-34 minutes Level of Care: IMCU Anticipated discharge: Home Anticipated DC Timeframe: Other
[2020-03-28] MEDS: POTASSI CL 20 MEQ/D5-1/2NS 1L 1,000 ML IV PRN ×2 (01:18→17:23)
[2020-03-28] MEDS: ACETAMINOPHEN 325 MG TABLET PO SCH ×2 (05:33→13:26)
[2020-03-28] MEDS: METOPROLOL TARTRATE 50 MG TABLET PO SCH ×2 (05:34→17:14)
[2020-03-28] MEDS: ENOXAPARIN SODIUM INJ 40 MG/0.4 ML DISP.SYRIN SUBCUT SCH (08:03)
[2020-03-28] MEDS: AMLODIPINE BESYLATE 10 MG TABLET PO SCH (08:03)
[2020-03-28] MEDS: VALSARTAN 160 MG TABLET PO SCH (09:28)
[2020-03-28] MEDS: FLUTICASONE/UMECLIDIN/VILANTER 100-62.5-25 MCG/DOSE IH SCH (09:29)
--- NOTE | 2020-03-28 13:49 | PDOC PROGRESS REPORT ---
Subjective Progress Note for:: 03/28/20 Subjective:: Patient remain fleeting in her wakefulness. NPO status. No reported fever or chills. No observed difficulty with breathing. She remain on room air without any supplemental support at this time. Reason For Visit: COPD R/O COVID, EXPOSURE TO SARS COV 2 INFECTION Physical Exam Vital Signs: Temp Pulse Resp BP Pulse Ox 97.7 F 71 15 149/82 H 99 03/28/20 07:33 03/28/20 07:33 03/28/20 07:33 03/28/20 07:33 03/28/20 07:33 Intake & Output 03/27/20 03/28/20 03/29/20 06:59 06:59 06:59 Intake Total 1000 1468 Balance 1000 1468 Weight 50.5 kg 50.4 kg Results Laboratory Results: 03/23/20 06:18 03/25/20 04:48 03/10/20 03/10/20 03/11/20 22:33 22:33 03:40 Creatine Kinase 225 H CK-MB (CK-2) 0.54 Troponin I < 0.012 < 0.012 NT-Pro-B Natriuret Pep 03/11/20 03/11/20 03/11/20 07:17 07:17 07:17 Creatine Kinase 368 H CK-MB (CK-2) 0.80 Troponin I < 0.012 NT-Pro-B Natriuret Pep 309 03/11/20 03/11/20 03/11/20 13:54 13:54 19:34 Creatine Kinase 296 H 250 H CK-MB (CK-2) 0.87 Troponin I < 0.012 NT-Pro-B Natriuret Pep 03/11/20 19:34 Creatine Kinase CK-MB (CK-2) 0.63 Troponin I 0.015 NT-Pro-B Natriuret Pep Impressions: Head CT 03/12/20 00:00 IMPRESSION: No acute intracranial findings. Head MRI 03/23/20 00:00 IMPRESSION: ATROPHY AND CHRONIC MICRO-VASCULAR ISCHEMIC CHANGES. OTHERWISE NORMAL MRI OF THE BRAIN WITHOUT INTRAVENOUS GADOLINIUM CONTRAST. EVIDENCE OF ACUTE STROKE: NO. KUB X-Ray 03/23/20 08:45 IMPRESSION: Limited view the abdomen demonstrates an NG tube in place. Catheter tip overlies the midline at the level of L3. Chest X-Ray 03/25/20 00:00 IMPRESSION: The NG tube extends into the stomach. Assessment & Plan - Diagnosis (1) COVID-19 Is this a current diagnosis for this admission?: Yes Plan: Continue current supportive care. Prognosis remain guarded due to her morbidities. (2) Metabolic encephalopathy Is this a current diagnosis for this admission?: Yes Plan: Continue current medication management. (3) COPD (chronic obstructive pulmonary disease) Qualifiers: COPD type: unspecified COPD Qualified Code(s): J44.9 - Chronic obstructive pulmonary disease, unspecified Is this a current diagnosis for this admission?: Yes Plan: Continue current medication management. (4) Essential (primary) hypertension Is this a current diagnosis for this admission?: Yes Plan: Continue current medication management. (5) IHSS (idiopathic hypertrophic subaortic stenosis) Is this a current diagnosis for this admission?: Yes Plan: Continue current medication management. - Time Time Spent with patient: 15-24 minutes Level of Care: IMCU Medications reviewed and adjusted accordingly: Yes Anticipated discharge: SNF Anticipated DC Timeframe: Other - Inpatient Certification Based on my medical assessment, after consideration of the patient's comorbidities, presenting symptoms, or acuity I expect that the services needed warrant INPATIENT care.: Yes I certify that my determination is in accordance with my understanding of Medicare's requirements for reasonable and necessary INPATIENT services [42 CFR 412.3e].: Yes Medical Necessity: Significant Comorbidiites Make Outpatient Treatment Too Risk y, Need Close Monitoring Due to Risk of Patient Decompensation, Need For IV Fluids, Need For Continuous Telemetry Monitoring, Risk of Complication if Not Cared For in Hospital, Risk of Diagnosis Which Will Require Inpatient Eval/Care/Monitoring Post Hospital Care: D/C or Transfer Summary - Plan Summary Plan Summary: Continue current medication management.
[2020-03-29] MEDS: ACETAMINOPHEN 325 MG TABLET PO SCH ×4 (00:39→22:48)
[2020-03-29 05:40] LABS: HEMATOCRIT 28.6 % (36.0-47.0); HEMOGLOBIN 9.1 g/dL (12.0-15.5); MEAN CORPUSCULAR HEMOGLOBIN 23.4 pg (27.0-33.4); MEAN CORPUSCULAR HGB CONC 31.8 g/dL (32.0-36.0); MEAN CORPUSCULAR VOLUME 74 fl (80-97); PLATELET COUNT 233 10^3/uL (150-450); RED BLOOD COUNT 3.89 10^6/uL (3.72-5.28); RED CELL DISTRIBUTION WIDTH 23.5 % (11.5-14.0); WHITE BLOOD COUNT 14.1 10^3/uL (4.0-10.5)
[2020-03-29 06:05] LABS: BLOOD UREA NITROGEN 11 mg/dL (7-20); CALCIUM 9.7 mg/dL (8.4-10.2); CARBON DIOXIDE 30 mmol/L (22-30); CHLORIDE 101 mmol/L (98-107); GLUCOSE 134 mg/dL (75-110); POTASSIUM 3.9 mmol/L (3.6-5.0)
[2020-03-29 06:11] LABS: ANION GAP 4 (5-19)
[2020-03-29] MEDS: METOPROLOL TARTRATE 50 MG TABLET PO SCH ×2 (06:42→17:07)
[2020-03-29] MEDS: AMLODIPINE BESYLATE 10 MG TABLET PO SCH (08:01)
[2020-03-29] MEDS: ENOXAPARIN SODIUM INJ 40 MG/0.4 ML DISP.SYRIN SUBCUT SCH (08:01)
[2020-03-29] MEDS: POTASSI CL 20 MEQ/D5-1/2NS 1L 1,000 ML IV PRN (08:13)
[2020-03-29] MEDS: VALSARTAN 160 MG TABLET PO SCH (09:51)
[2020-03-29] MEDS: FLUTICASONE/UMECLIDIN/VILANTER 100-62.5-25 MCG/DOSE IH SCH (09:51)
[2020-03-29] MEDS: CLONIDINE 0.3 MG/24 HR PATCH.TDWK TD SCH (09:53)
--- NOTE | 2020-03-29 15:18 | PDOC PROGRESS REPORT ---
Subjective Progress Note for:: 03/29/20 Subjective:: no significant change in her level of wakefulness. Patient remain on NPO status. No reported fever or chills. No observed difficulty with breathing. There is no requirement for continuous supplemental support at this time. Reason For Visit: COPD R/O COVID, EXPOSURE TO SARS COV 2 INFECTION Physical Exam Vital Signs: Temp Pulse Resp BP Pulse Ox 98.1 F 86 15 153/82 H 98 03/29/20 10:03 03/29/20 10:03 03/29/20 10:03 03/29/20 10:03 03/29/20 10:03 Intake & Output 03/28/20 03/29/20 03/30/20 06:59 06:59 06:59 Intake Total 1468 1561 1040 Balance 1468 1561 1040 Weight 50.4 kg 52.3 kg Results Laboratory Results: 03/29/20 05:06 03/29/20 05:06 03/29/20 03/29/20 05:06 05:06 WBC 14.1 H RBC 3.89 Hgb 9.1 L Hct 28.6 L MCV 74 L MCH 23.4 L MCHC 31.8 L RDW 23.5 H Plt Count 233 Sodium 134.8 L Potassium 3.9 Chloride 101 Carbon Dioxide 30 Anion Gap 4 L BUN 11 Creatinine 0.45 L Est GFR ( Amer) > 60 Glucose 134 H Calcium 9.7 03/10/20 03/10/20 03/11/20 22:33 22:33 03:40 Creatine Kinase 225 H CK-MB (CK-2) 0.54 Troponin I < 0.012 < 0.012 NT-Pro-B Natriuret Pep 03/11/20 03/11/20 03/11/20 07:17 07:17 07:17 Creatine Kinase 368 H CK-MB (CK-2) 0.80 Troponin I < 0.012 NT-Pro-B Natriuret Pep 309 03/11/20 03/11/20 03/11/20 13:54 13:54 19:34 Creatine Kinase 296 H 250 H CK-MB (CK-2) 0.87 Troponin I < 0.012 NT-Pro-B Natriuret Pep 03/11/20 19:34 Creatine Kinase CK-MB (CK-2) 0.63 Troponin I 0.015 NT-Pro-B Natriuret Pep Impressions: Head CT 03/12/20 00:00 IMPRESSION: No acute intracranial findings. Head MRI 03/23/20 00:00 IMPRESSION: ATROPHY AND CHRONIC MICRO-VASCULAR ISCHEMIC CHANGES. OTHERWISE NORMAL MRI OF THE BRAIN WITHOUT INTRAVENOUS GADOLINIUM CONTRAST. EVIDENCE OF ACUTE STROKE: NO. KUB X-Ray 03/23/20 08:45 IMPRESSION: Limited view the abdomen demonstrates an NG tube in place. Cat heter tip overlies the midline at the level of L3. Chest X-Ray 03/25/20 00:00 IMPRESSION: The NG tube extends into the stomach. Assessment & Plan - Diagnosis (1) COVID-19 Is this a current diagnosis for this admission?: Yes (2) Metabolic encephalopathy Is this a current diagnosis for this admission?: Yes (3) COPD (chronic obstructive pulmonary disease) Qualifiers: COPD type: unspecified COPD Qualified Code(s): J44.9 - Chronic obstructive pulmonary disease, unspecified Is this a current diagnosis for this admission?: Yes (4) Essential (primary) hypertension Is this a current diagnosis for this admission?: Yes (5) IHSS (idiopathic hypertrophic subaortic stenosis) Is this a current diagnosis for this admission?: Yes - Time Time Spent with patient: 15-24 minutes Level of Care: IMCU Medications reviewed and adjusted accordingly: Yes Anticipated discharge: SNF Anticipated DC Timeframe: Other - Inpatient Certification Based on my medical assessment, after consideration of the patient's comorbidities, presenting symptoms, or acuity I expect that the services needed warrant INPATIENT care.: Yes I certify that my determination is in accordance with my understanding of Medicare's requirements for reasonable and necessary INPATIENT services [42 CFR 412.3e].: Yes Medical Necessity: Significant Comorbidiites Make Outpatient Treatment Too Risky, Need Close Monitoring Due to Risk of Patient Decompensation, Need For IV Fluids, Risk of Complication if Not Cared For in Hospital, Risk of Diagnosis Which Will Require Inpatient Eval/Care/Monitoring Post Hospital Care: D/C or Transfer Summary - Plan Summary Plan Summary: Continue current medication and supportive management.
[2020-03-30] MEDS: METOPROLOL TARTRATE 50 MG TABLET PO SCH ×2 (05:27→17:06)
[2020-03-30] MEDS: ACETAMINOPHEN 325 MG TABLET PO SCH ×3 (05:28→21:10)
[2020-03-30] MEDS: AMLODIPINE BESYLATE 10 MG TABLET PO SCH (07:54)
[2020-03-30] MEDS: ENOXAPARIN SODIUM INJ 40 MG/0.4 ML DISP.SYRIN SUBCUT SCH (07:54)
[2020-03-30] MEDS: POTASSI CL 20 MEQ/D5-1/2NS 1L 1,000 ML IV PRN ×2 (07:56→17:05)
[2020-03-30] MEDS: VALSARTAN 160 MG TABLET PO SCH (09:45)
[2020-03-30] MEDS: FLUTICASONE/UMECLIDIN/VILANTER 100-62.5-25 MCG/DOSE IH SCH (09:45)
--- NOTE | 2020-03-30 20:10 | PDOC PROGRESS REPORT ---
Subjective Progress Note for:: 03/30/20 Subjective:: Patient more responsive today, she continues to depend on NG tube for feeding, she may need a PEG tube, I am not sure the surgeon or GI will want to insert a PEG tube in COVID patient. Reason For Visit: COPD R/O COVID, EXPOSURE TO SARS COV 2 INFECTION Physical Exam Vital Signs: Temp Pulse Resp BP Pulse Ox 98.3 F 75 16 164/81 H 100 03/30/20 16:37 03/30/20 19:00 03/30/20 16:37 03/30/20 16:37 03/30/20 16:37 Intake & Output 03/29/20 03/30/20 03/31/20 06:59 06:59 06:59 Intake Total 1561 2629 1291 Output Total 600 Balance 1561 2029 1291 Weight 52.3 kg 52.3 kg 52.3 kg Results Laboratory Results: 03/29/20 05:06 03/29/20 05:06 03/10/20 03/10/20 03/11/20 22:33 22:33 03:40 Creatine Kinase 225 H CK-MB (CK-2) 0.54 Troponin I < 0.012 < 0.012 NT-Pro-B Natriuret Pep 03/11/20 03/11/20 03/11/20 07:17 07:17 07:17 Creatine Kinase 368 H CK-MB (CK-2) 0.80 Troponin I < 0.012 NT-Pro-B Natriuret Pep 309 03/11/20 03/11/20 03/11/20 13:54 13:54 19:34 Creatine Kinase 296 H 250 H CK-MB (CK-2) 0.87 Troponin I < 0.012 NT-Pro-B Natriuret Pep 03/11/20 19:34 Creatine Kinase CK-MB (CK-2) 0.63 Troponin I 0.015 NT-Pro-B Natriuret Pep Impressions: Head CT 03/12/20 00:00 IMPRESSION: No acute intracranial findings. Head MRI 03/23/20 00:00 IMPRESSION: ATROPHY AND CHRONIC MICRO-VASCULAR ISCHEMIC CHANGES. OTHERWISE NORMAL MRI OF THE BRAIN WITHOUT INTRAVENOUS GADOLINIUM CONTRAST. EVIDENCE OF ACUTE STROKE: NO. KUB X-Ray 03/23/20 08:45 IMPRESSION: Limited view the abdomen demonstrates an NG tube in place. Cathet er tip overlies the midline at the level of L3. Chest X-Ray 03/25/20 00:00 IMPRESSION: The NG tube extends into the stomach. Assessment & Plan - Diagnosis (1) COVID-19 Is this a current diagnosis for this admission?: Yes (2) COPD (chronic obstructive pulmonary disease) Qualifiers: COPD type: unspecified COPD Qualified Code(s): J44.9 - Chronic obstructive pulmonary disease, unspecified Is this a current diagnosis for this admission?: Yes (3) IHSS (idiopathic hypertrophic subaortic stenosis) Is this a current diagnosis for this admission?: Yes (4) Essential (primary) hypertension Is this a current diagnosis for this admission?: Yes (5) Metabolic encephalopathy Is this a current diagnosis for this admission?: Yes Plan: She has COVID related encephalopathy with fluctuating cognition - Time Time Spent with patient: 25-34 minutes Level of Care: IMCU Anticipated discharge: Home Anticipated DC Timeframe: within 72 hours
[2020-03-31] MEDS: METOPROLOL TARTRATE 50 MG TABLET PO SCH ×2 (06:08→17:32)
[2020-03-31] MEDS: ACETAMINOPHEN 325 MG TABLET PO SCH ×3 (06:08→21:14)
[2020-03-31] MEDS: POTASSI CL 20 MEQ/D5-1/2NS 1L 1,000 ML IV PRN ×2 (06:08→22:50)
[2020-03-31] MEDS: AMLODIPINE BESYLATE 10 MG TABLET PO SCH (09:05)
[2020-03-31] MEDS: ENOXAPARIN SODIUM INJ 40 MG/0.4 ML DISP.SYRIN SUBCUT SCH (09:06)
[2020-03-31] MEDS: VALSARTAN 160 MG TABLET PO SCH (09:06)
[2020-03-31] MEDS: FLUTICASONE/UMECLIDIN/VILANTER 100-62.5-25 MCG/DOSE IH SCH (09:07)
--- NOTE | 2020-03-31 21:09 | PDOC PROGRESS REPORT ---
Subjective Progress Note for:: 03/31/20 Subjective:: I spoke with the daughter, patient presently requiring NG tube for nutrition, she will require a PEG tube before she is discharged home, the plan is for patient to be discharged home, consultation will be requested from surgery for PEG tube placement. She is a code the patient, she has not regained full cognition since the COVID, speech evaluation was done previously, speech recommended nothing by mouth, n.p.o., she is scheduled for next evaluation tomorrow, patient's daughter will like to be in the room when the speech evaluation is being administered Reason For Visit: COPD R/O COVID, EXPOSURE TO SARS COV 2 INFECTION Physical Exam Vital Signs: Temp Pulse Resp BP Pulse Ox 98.7 F 73 17 174/78 H 97 03/31/20 16:25 03/31/20 19:00 03/31/20 16:25 03/31/20 16:25 03/31/20 16:25 Intake & Output 03/30/20 03/31/20 04/01/20 06:59 06:59 06:59 Intake Total 2629 2781 Output Total 600 Balance 9 2781 Weight 52.3 kg 49.4 kg Results Laboratory Results: 03/29/20 05:06 03/29/20 05:06 03/10/20 03/10/20 03/11/20 22:33 22:33 03:40 Creatine Kinase 225 H CK-MB (CK-2) 0.54 Troponin I < 0.012 < 0.012 NT-Pro-B Natriuret Pep 03/11/20 03/11/20 03/11/20 07:17 07:17 07:17 Creatine Kinase 368 H CK-MB (CK-2) 0.80 Troponin I < 0.012 NT-Pro-B Natriuret Pep 309 03/11/20 03/11/20 03/11/20 13:54 13:54 19:34 Creatine Kinase 296 H 250 H CK-MB (CK-2) 0.87 Troponin I < 0.012 NT-Pro-B Natriuret Pep 03/11/20 19:34 Creatine Kinase CK-MB (CK-2) 0.63 Troponin I 0.015 NT-Pro-B Natriuret Pep Impressions: Head CT 03/12/20 00:00 IMPRESSION: No acute intracranial findings. Head MRI 03/23/20 00:00 IMPRESSION: ATROPHY AND CHRONIC MICRO-VASCULAR ISCHEMIC CHANGES. OTHERWISE NORMAL MRI OF THE BRAIN WITHOUT INTRAVENOUS GADOLINIUM CONTRAST. EVIDENCE OF ACUTE STROKE: NO. KUB X-Ray 03/23/20 08:45 IMPRESSION: Limited view the abdomen demonstrates an NG tube in place. Catheter tip overlies the midline at the level of L3. Chest X-Ray 03/25/20 00:00 IMPRESSION: The NG tube extends into the stomach. Assessment & Plan - Diagnosis (1) COVID-19 Is this a current diagnosis for this admission?: Yes (2) COPD (chronic obstructive pulmonary disease) Qualifiers: COPD type: unspecified COPD Qualified Code(s): J44.9 - Chronic obstructive pulmonary disease, unspecified Is this a current diagnosis for this admission?: Yes (3) IHSS (idiopathic hypertrophic subaortic stenosis) Is this a current diagnosis for this admission?: Yes (4) Essential (primary) hypertension Is this a current diagnosis for this admission?: Yes (5) Metabolic encephalopathy Is this a current diagnosis for this admission?: Yes - Time Time Spent with patient: 35 or more minutes Level of Care: IMCU Anticipated discharge: Home Anticipated DC Timeframe: within 48 hours
[2020-04-01] MEDS: METOPROLOL TARTRATE 50 MG TABLET PO SCH ×2 (05:03→17:08)
[2020-04-01] MEDS: ACETAMINOPHEN 325 MG TABLET PO SCH ×3 (05:03→21:35)
[2020-04-01] MEDS: AMLODIPINE BESYLATE 10 MG TABLET PO SCH (07:54)
[2020-04-01] MEDS: ENOXAPARIN SODIUM INJ 40 MG/0.4 ML DISP.SYRIN SUBCUT SCH (07:55)
[2020-04-01] MEDS: FLUTICASONE/UMECLIDIN/VILANTER 100-62.5-25 MCG/DOSE IH SCH (09:00)
[2020-04-01] MEDS: VALSARTAN 160 MG TABLET PO SCH (09:00)
[2020-04-01] MEDS: POTASSI CL 20 MEQ/D5-1/2NS 1L 1,000 ML IV PRN (13:26)
--- NOTE | 2020-04-01 17:36 | PDOC PROGRESS REPORT ---
Subjective Progress Note for:: 04/01/20 Subjective:: Patient was reevaluated by speech, family has decided to initiate PEG tube, I spoke to Dr. Carlson surgeon, he has kindly accepted to pursue with the procedure as soon as she gets rapid COVID test done. Patient sensorium remains diminished with fluctuating cognition. Overall prognosis is guarded Reason For Visit: COPD R/O COVID, EXPOSURE TO SARS COV 2 INFECTION Physical Exam Vital Signs: Temp Pulse Resp BP Pulse Ox 98.5 F 88 20 149/89 H 95 04/01/20 15:45 04/01/20 15:45 04/01/20 15:45 04/01/20 15:45 04/01/20 15:45 Intake & Output 03/31/20 04/01/20 04/02/20 06:59 06:59 06:59 Intake Total 2781 1080 1000 Balance 2781 1080 1000 Weight 49.4 kg 47.6 kg Results Laboratory Results: 03/29/20 05:06 03/29/20 05:06 03/10/20 03/10/20 03/11/20 22:33 22:33 03:40 Creatine Kinase 225 H CK-MB (CK-2) 0.54 Troponin I < 0.012 < 0.012 NT-Pro-B Natriuret Pep 03/11/20 03/11/20 03/11/20 07:17 07:17 07:17 Creatine Kinase 368 H CK-MB (CK-2) 0.80 Troponin I < 0.012 NT-Pro-B Natriuret Pep 309 03/11/20 03/11/20 03/11/20 13:54 13:54 19:34 Creatine Kinase 296 H 250 H CK-MB (CK-2) 0.87 Troponin I < 0.012 NT-Pro-B Natriuret Pep 03/11/20 19:34 Creatine Kinase CK-MB (CK-2) 0.63 Troponin I 0.015 NT-Pro-B Natriuret Pep Impressions: Head CT 03/12/20 00:00 IMPRESSION: No acute intracranial findings. Head MRI 03/23/20 00:00 IMPRESSION: ATROPHY AND CHRONIC MICRO-VASCULAR ISCHEMIC CHANGES. OTHERWISE NORMAL MRI OF THE BRAIN WITHOUT INTRAVENOUS GADOLINIUM CONTRAST. EVIDENCE OF ACUTE STROKE: NO. KUB X-Ray 03/23/20 08:45 IMPRESSION: Limited view the abdomen demonstrates an NG tube in place. Catheter tip overlies the midline at the level of L3. Chest X-Ray 03/25/20 00:00 IMPRESSION: The NG tube extends into the stomach. Assessment & Plan - Diagnosis (1) Encephalopathy due to COVID-19 virus Is this a current diagnosis for this admission?: Yes Plan: COVID related encephalopathy the plan is to have PEG tube placement, she will be discharged home with family (2) COVID-19 Is this a current diagnosis for this admission?: Yes (3) COPD (chronic obstructive pulmonary disease) Qualifiers: COPD type: unspecified COPD Qualified Code(s): J44.9 - Chronic obstructive pulmonary disease, unspecified Is this a current diagnosis for this admission?: Yes (4) IHSS (idiopathic hypertrophic subaortic stenosis) Is this a current diagnosis for this admission?: Yes (5) Essential (primary) hypertension Is this a current diagnosis for this admission?: Yes (6) Metabolic encephalopathy Is this a current diagnosis for this admission?: Yes - Time Time Spent with patient: 35 or more minutes Level of Care: IMCU Medications reviewed and adjusted accordingly: Yes Anticipated discharge: Home Anticipated DC Timeframe: within 72 hours
--- NOTE | 2020-04-01 21:12 | PDOC CONSULTATION ---
Consultation Consult Date: 04/01/20 Provider Consulted: SURGICAL SURGICALIST Consult reason:: dysphagia, encephalopathy History of Present Illness Admission Date/PCP: 03/11/20 04:24 BIA CASTANEDA MD History of Present Illness: RONALDO CORDAO is a 84 year old female recently admitted with COVID-19. The patient is suffering from encephalopathy, thought to be related to her COVID-19 infection. The patient has evidence of aspiration, and has failed a swallowing study. The patient had an NG tube and was receiving enteral nutrition, however she has pulled her NG tube out. At this time, she is receiving no enteral nutrition. Consultation has been made to assess the patient for PEG tube. The patient is encephalopathic, and does not respond appropriately to questions or stimuli. No meaningful review of systems can be obtained from the patient, due to her mental status. All medical history is gleaned from the medical record, the nursing staff, and the family. Past Medical History Cardiac Medical History: Reports: Congestive Heart Failure - as per prior chart though pt and daughter deny, Hypertension, Other - IHSS Denies: Coronary Artery Disease, Myocardial Infarction Pulmonary Medical History: Reports: Asthma, Bronchitis, Chronic Obstructive Pulmonary Disease (COPD), Pneumonia Denies: Tuberculosis Neurological Medical History: Denies: Seizures Musculoskeltal Medical History: Reports: Arthritis Psychiatric Medical History: Reports: Dementia Denies: Depression Hematology: Reports: Anemia Past Surgical History Past Surgical History: Reports: Hysterectomy, Orthopedic Surgery - R hand carpel tunnel Denies: Pacemaker Social History Smoking Status: Current Every Day Smoker Electronic Cigarette use?: No Frequency of Alcohol Use: None Hx Recreational Drug Use: No Drugs: None Hx Prescription Drug Abuse: No Family History Family History: Reviewed & Not Pertinent Parental Family History Reviewed: Yes Children Family History Reviewed: Yes Sibling(s) Family History Reviewed.: Yes Medication/Allergy Home Medications: Clonidine HCl 0.3 mg PO Q8 04/22/16 Megestrol Acetate 40 mg PO BID 01/27/20 Fluticasone/Umeclidin/Vilanter [Trelegy 100-62.5-25 Mcg Ellipta 14 Dose/Dpi] 1 puff IH DAILY 01/28/20 Metoprolol Tartrate [Lopressor 50 mg Tablet] 50 mg PO Q12 #180 tablet 01/30/20 Acetaminophen 500 mg PO Q8 03/11/20 Polyethylene Glycol 3350 [Miralax Powder 17 gm/Packet] 1 packet PO QAM 03/11/20 Allergies/Adverse Reactions: No Known Drug Allergies Allergy (Verified 03/27/19 16:03) shellfish derived Adverse Reaction (Verified 01/27/20 23:41) Review of Systems ROS unobtainable: Due to mental status Physical Exam Vital Signs: Temp Pulse Resp BP Pulse Ox 98.5 F 88 20 149/89 H 95 04/01/20 15:45 04/01/20 15:45 04/01/20 15:45 04/01/20 15:45 04/01/20 15:45 Intake & Output 03/31/20 04/01/20 04/02/20 06:59 06:59 06:59 Intake Total 2781 1080 1000 Balance 2781 1080 1000 Weight 49.4 kg 47.6 kg General appearance: PRESENT: no acute distress. ABSENT: cooperative Head exam: PRESENT: atraumatic Eye exam: ABSENT: scleral icterus Mouth exam: PRESENT: neck supple Neck exam: ABSENT: tracheal deviation, tracheostomy Respiratory exam: PRESENT: unlabored. ABSENT: tachypnea Cardiovascular exam: ABSENT: tachycardia GI/Abdominal exam: PRESENT: soft. ABSENT: distended, rigid, tenderness Rectal exam: PRESENT: deferred Extremities exam: ABSENT: pedal edema Musculoskeletal exam: PRESENT: other - Contractures of upper and lower extremities Neurological exam: PRESENT: awake. ABSENT: alert Psychiatric exam: PRESENT: agitated Focused psych exam: PRESENT: restlessness, other - Nonverbal Skin exam: ABSENT: erythema, jaundice Results Laboratory Results: 03/29/20 05:06 03/29/20 05:06 03/10/20 03/10/20 03/11/20 22:33 22:33 03:40 Creatine Kinase 225 H CK-MB (CK-2) 0.54 Troponin I < 0.012 < 0.012 NT-Pro-B Natriuret Pep 03/11/20 03/11/20 03/11/20 07:17 07:17 07:17 Creatine Kinase 368 H CK-MB (CK-2) 0.80 Troponin I < 0.012 NT-Pro-B Natriuret Pep 309 03/11/20 03/11/20 03/11/20 13:54 13:54 19:34 Creatine Kinase 296 H 250 H CK-MB (CK-2) 0.87 Troponin I < 0.012 NT-Pro-B Natriuret Pep 03/11/20 19:34 Creatine Kinase CK-MB (CK-2) 0.63 Troponin I 0.015 NT-Pro-B Natriuret Pep Impressions: Head CT 03/12/20 00:00 IMPRESSION: No acute intracranial findings. Head MRI 03/23/20 00:00 IMPRESSION: ATROPHY AND CHRONIC MICRO-VASCULAR ISCHEMIC CHANGES. OTHERWISE NORMAL MRI OF THE BRAIN WITHOUT INTRAVENOUS GADOLINIUM CONTRAST. EVIDENCE OF ACUTE STROKE: NO. KUB X-Ray 03/23/20 08:45 IMPRESSION: Limited view the abdomen demonstrates an NG tube in place. Catheter tip overlies the midline at the level of L3. Chest X-Ray 03/25/20 00:00 IMPRESSION: The NG tube extends into the stomach. Assessment & Plan - Diagnosis (1) Dysphagia Qualifiers: Dysphagia type: unspecified Qualified Code(s): R13.10 - Dysphagia, unspecif ied Is this a current diagnosis for this admission?: Yes (2) Encephalopathy due to COVID-19 virus Is this a current diagnosis for this admission?: Yes - Plan Summary Plan Summary: This is an 84-year-old female with encephalopathy and dysphagia. I have discussed her care with her daughter who is making her medical decisions. The complicating factor is her COVID 19 positivity. If the patient still exhibits viral positivity on repeat testing, she will require intubation for PEG kaylin cement. I have discussed this possibility with the family, and at this time they are not willing to agree to intubation. I will order a COVID-19 test tomorrow (hopefully our rapid tests will arrive) and make appropriate plans from there. Surgery will continue to follow.
[2020-04-02] MEDS: METOPROLOL TARTRATE 50 MG TABLET PO SCH ×2 (05:28→17:00)
[2020-04-02] MEDS: ACETAMINOPHEN 325 MG TABLET PO SCH ×3 (05:29→21:43)
[2020-04-02] MEDS: POTASSI CL 20 MEQ/D5-1/2NS 1L 1,000 ML IV PRN ×2 (05:33→20:57)
[2020-04-02] MEDS: AMLODIPINE BESYLATE 10 MG TABLET PO SCH (09:31)
[2020-04-02] MEDS: ENOXAPARIN SODIUM INJ 40 MG/0.4 ML DISP.SYRIN SUBCUT SCH (09:31)
[2020-04-02] MEDS: FLUTICASONE/UMECLIDIN/VILANTER 100-62.5-25 MCG/DOSE IH SCH (09:32)
[2020-04-02] MEDS: VALSARTAN 160 MG TABLET PO SCH (09:32)
--- NOTE | 2020-04-02 20:56 | PDOC PROGRESS REPORT ---
Subjective Progress Note for:: 04/02/20 Subjective:: Patient awaiting PEG tube placement, meanwhile she will be started back on tube feed through NG tube Reason For Visit: COPD R/O COVID, EXPOSURE TO SARS COV 2 INFECTION Physical Exam Vital Signs: Temp Pulse Resp BP Pulse Ox 98.3 F 77 16 153/72 H 97 04/02/20 16:00 04/02/20 16:00 04/02/20 16:00 04/02/20 16:00 04/02/20 16:00 Intake & Output 04/01/20 04/02/20 04/03/20 06:59 06:59 06:59 Intake Total 1080 2000 Balance 1080 2000 Weight 47.6 kg 47.6 kg Results Laboratory Results: 03/29/20 05:06 03/29/20 05:06 03/10/20 03/10/20 03/11/20 22:33 22:33 03:40 Creatine Kinase 225 H CK-MB (CK-2) 0.54 Troponin I < 0.012 < 0.012 NT-Pro-B Natriuret Pep 03/11/20 03/11/20 03/11/20 07:17 07:17 07:17 Creatine Kinase 368 H CK-MB (CK-2) 0.80 Troponin I < 0.012 NT-Pro-B Natriuret Pep 309 03/11/20 03/11/20 03/11/20 13:54 13:54 19:34 Creatine Kinase 296 H 250 H CK-MB (CK-2) 0.87 Troponin I < 0.012 NT-Pro-B Natriuret Pep 03/11/20 19:34 Creatine Kinase CK-MB (CK-2) 0.63 Troponin I 0.015 NT-Pro-B Natriuret Pep Impressions: Head CT 03/12/20 00:00 IMPRESSION: No acute intracranial findings. Head MRI 03/23/20 00:00 IMPRESSION: ATROPHY AND CHRONIC MICRO-VASCULAR ISCHEMIC CHANGES. OTHERWISE NORMAL MRI OF THE BRAIN WITHOUT INTRAVENOUS GADOLINIUM CONTRAST. EVIDENCE OF ACUTE STROKE: NO. KUB X-Ray 03/23/20 08:45 IMPRESSION: Limited view the abdomen demonstrates an NG tube in place. Catheter tip overlies the midline at the level of L3. Chest X-Ray 03/25/20 00:00 IMPRESSION: The NG tube extends into the stomach. Assessment & Plan - Diagnosis (1) Encephalopathy due to COVID-19 virus Is this a current diagnosis for this admission?: Yes (2) COVID-19 Is this a current diagnosis for this admission?: Yes (3) COPD (chronic obstructive pulmonary disease) Qualifiers: COPD type: unspecified COPD Qualified Code(s): J44.9 - Chronic obstructive pulmonary disease, unspecified Is this a current diagnosis for this admission?: Yes (4) IHSS (idiopathic hypertrophic subaortic stenosis) Is this a current diagnosis for this admission?: Yes (5) Essential (primary) hypertension Is this a current diagnosis for this admission?: Yes (6) Metabolic encephalopathy Is this a current diagnosis for this admission?: Yes - Time Time Spent with patient: 15-24 minutes Level of Care: IMCU Medications reviewed and adjusted accordingly: Yes Anticipated discharge: Home Anticipated DC Timeframe: within 72 hours
--- NOTE | 2020-04-03 05:33 | RADIOLOGY REPORT (SQ) ---
EXAM DESCRIPTION: XR ABDOMEN 1 VIEW (KUB) COMPLETED DATE/TME: 04/02/2020 21:14 CLINICAL HISTORY: 84 years, Female, Check Placement of NG Tube COMPARISON: 03/23/2020 NUMBER OF VIEWS: One TECHNIQUE: AP view of the abdomen LIMITATIONS: None. FINDINGS: The side-port of the nasogastric tube lies near the gastroesophageal junction. No dilated loops small bowel are identified. The bones are unremarkable. Visualized portions of the lungs are clear. IMPRESSION: Side-port for the nasogastric tube lies near the gastroesophageal junction. Recommend advancement by at least 8 cm for optimal placement. copyright 2010 [employer]- All Rights Reserved
[2020-04-03] MEDS ORDERED: ACETAMINOPHEN 325 MG TABLET ONE (06:15)
[2020-04-03] MEDS: ACETAMINOPHEN 325 MG TABLET PO SCH ×3 (06:16→22:47)
[2020-04-03] MEDS: METOPROLOL TARTRATE 50 MG TABLET PO SCH ×2 (06:18→18:25)
[2020-04-03] MEDS: ENOXAPARIN SODIUM INJ 40 MG/0.4 ML DISP.SYRIN SUBCUT SCH (09:19)
[2020-04-03] MEDS: VALSARTAN 160 MG TABLET PO SCH (09:19)
[2020-04-03] MEDS: FLUTICASONE/UMECLIDIN/VILANTER 100-62.5-25 MCG/DOSE IH SCH (09:20)
[2020-04-03] MEDS: AMLODIPINE BESYLATE 10 MG TABLET PO SCH (09:20)
--- NOTE | 2020-04-03 14:45 | PDOC PROGRESS REPORT ---
Subjective Progress Note for:: 04/03/20 Subjective:: 84-year-old female, COVID positive with encephalopathy. She also has dysphagia, and is in need of a gastrostomy for enteral nutrition. No review of systems is obtainable, due to her current mental status. No acute events overnight per the nursing staff. Reason For Visit: COPD R/O COVID, EXPOSURE TO SARS COV 2 INFECTION Physical Exam Vital Signs: Temp Pulse Resp BP Pulse Ox 98.1 F 82 16 141/72 H 98 04/03/20 12:44 04/03/20 12:44 04/03/20 12:44 04/03/20 12:44 04/03/20 12:44 Intake & Output 04/02/20 04/03/20 04/04/20 06:59 06:59 06:59 Intake Total 1999 1000 Output Total 0 Balance 1999 1000 Weight 47.6 kg 46.2 kg General appearance: PRESENT: no acute distress Head exam: PRESENT: atraumatic Mouth exam: PRESENT: neck supple Neck exam: ABSENT: thyromegaly, tracheal deviation Respiratory exam: ABSENT: tachypnea Cardiovascular exam: ABSENT: tachycardia GI/Abdominal exam: PRESENT: soft. ABSENT: distended, tenderness Rectal exam: PRESENT: deferred Musculoskeletal exam: PRESENT: other - contractures Neurological exam: ABSENT: alert, oriented to person, oriented to place, oriented to time, oriented to situation Psychiatric exam: ABSENT: agitated Focused psych exam: PRESENT: other - nonverbal Skin exam: ABSENT: erythema, jaundice Results Laboratory Results: 03/29/20 05:06 03/29/20 05:06 03/10/20 03/10/20 03/11/20 22:33 22:33 03:40 Creatine Kinase 225 H CK-MB (CK-2) 0.54 Troponin I < 0.012 < 0.012 NT-Pro-B Natriuret Pep 03/11/20 03/11/20 03/11/20 07:17 07:17 07:17 Creatine Kinase 368 H CK-MB (CK-2) 0.80 Troponin I < 0.012 NT-Pro-B Natriuret Pep 309 03/11/20 03/11/20 03/11/20 13:54 13:54 19:34 Creatine Kinase 296 H 250 H CK-MB (CK-2) 0.87 Troponin I < 0.012 NT-Pro-B Natriuret Pep 03/11/20 19:34 Creatine Kinase CK-MB (CK-2) 0.63 Troponin I 0.015 NT-Pro-B Natriuret Pep Impressions: Head CT 03/12/20 00:00 IMPRESSION: No acute intracranial findings. Head MRI 03/23/20 00:00 IMPRESSION: ATROPHY AND CHRONIC MICRO-VASCULAR ISCHEMIC CHANGES. OTHERWISE NORMAL MRI OF THE BRAIN WITHOUT INTRAVENOUS GADOLINIUM CONTRAST. EVIDENCE OF ACUTE STROKE: NO. Chest X-Ray 03/25/20 00:00 IMPRESSION: The NG tube extends into the stomach. KUB X-Ray 04/02/20 21:14 IMPRESSION: Side-port for the nasogastric tube lies near the gastroesophageal junction. Recommend advancement by at least 8 cm for optimal placement. copyright 2011 [employer]- All Rights Reserved Assessment & Plan - Diagnosis (1) Dysphagia Qualifiers: Dysphagia type: unspecified Qualified Code(s): R13.10 - Dysphagia, unspecified Is this a current diagnosis for this admission?: Yes (2) Encephalopathy due to COVID-19 virus Is this a current diagnosis for this admission?: Yes - Time Anticipated Discharge Disposition: unknown Anticipated Discharge Timeframe: unknown - Plan Summary Plan Summary: 84-year-old female with COVID-19, encephalopathy, and dysphagia. I have discussed the patient's care with her daughter, Belkys. Due to her COVID positivity, the patient will need to be intubated to have her gastrostomy placed. At this time, the family is unwilling to consent to intubation, due to the possibility of remaining on the ventilator. I have encouraged the daughter to discuss the situation with family members. If they change their mind, I will be available to place the PEG. Surgery will sign off for now. The daughter and/or nursing staff should contact me if the situation changes.
[2020-04-03] MEDS: POTASSI CL 20 MEQ/D5-1/2NS 1L 1,000 ML IV PRN (18:25)
--- NOTE | 2020-04-03 20:27 | PDOC PROGRESS REPORT ---
Subjective Progress Note for:: 04/03/20 Subjective:: Patient COVID test was positive, before patient could get a PEG tube she will need to be intubated on mechanical ventilation, patient's daughter does not want to consent to intubation. She is presently on NG tube feed. Reason For Visit: COPD R/O COVID, EXPOSURE TO SARS COV 2 INFECTION Physical Exam Vital Signs: Temp Pulse Resp BP Pulse Ox 97.8 F 88 16 144/85 H 100 04/03/20 17:17 04/03/20 17:17 04/03/20 17:17 04/03/20 17:17 04/03/20 17:17 Intake & Output 04/02/20 04/03/20 04/04/20 06:59 06:59 06:59 Intake Total 2000 1000 1000 Output Total 0 Balance 2000 1000 1000 Weight 47.6 kg 46.2 kg Results Laboratory Results: 03/29/20 05:06 03/29/20 05:06 03/10/20 03/10/20 03/11/20 22:33 22:33 03:40 Creatine Kinase 225 H CK-MB (CK-2) 0.54 Troponin I < 0.012 < 0.012 NT-Pro-B Natriuret Pep 03/11/20 03/11/20 03/11/20 07:17 07:17 07:17 Creatine Kinase 368 H CK-MB (CK-2) 0.80 Troponin I < 0.012 NT-Pro-B Natriuret Pep 309 03/11/20 03/11/20 03/11/20 13:54 13:54 19:34 Creatine Kinase 296 H 250 H CK-MB (CK-2) 0.87 Troponin I < 0.012 NT-Pro-B Natriuret Pep 03/11/20 19:34 Creatine Kinase CK-MB (CK-2) 0.63 Troponin I 0.015 NT-Pro-B Natriuret Pep Impressions: Head CT 03/12/20 00:00 IMPRESSION: No acute intracranial findings. Head MRI 03/23/20 00:00 IMPRESSION: ATROPHY AND CHRONIC MICRO-VASCULAR ISCHEMIC CHANGES. OTHERWISE NOR MAL MRI OF THE BRAIN WITHOUT INTRAVENOUS GADOLINIUM CONTRAST. EVIDENCE OF ACUTE STROKE: NO. Chest X-Ray 03/25/20 00:00 IMPRESSION: The NG tube extends into the stomach. KUB X-Ray 04/02/20 21:14 IMPRESSION: Side-port for the nasogastric tube lies near the gastroesophageal junction. Recommend advancement by at least 8 cm for optimal placement. copyright 2011 [email or web address]- All Rights Reserved Assessment & Plan - Diagnosis (1) Encephalopathy due to COVID-19 virus Is this a current diagnosis for this admission?: Yes (2) COVID-19 Is this a current diagnosis for this admission?: Yes (3) COPD (chronic obstructive pulmonary disease) Qualifiers: COPD type: unspecified COPD Qualified Code(s): J44.9 - Chronic obstructive pulmonary disease, unspecified Is this a current diagnosis for this admission?: Yes (4) IHSS (idiopathic hypertrophic subaortic stenosis) Is this a current diagnosis for this admission?: Yes (5) Essential (primary) hypertension Is this a current diagnosis for this admission?: Yes (6) Metabolic encephalopathy Is this a current diagnosis for this admission?: Yes - Time Time Spent with patient: 15-24 minutes Level of Care: IMCU Medications reviewed and adjusted accordingly: Yes Anticipated discharge: Home Anticipated DC Timeframe: Other
[2020-04-04] MEDS: METOPROLOL TARTRATE 50 MG TABLET PO SCH ×2 (06:14→17:08)
[2020-04-04] MEDS: ACETAMINOPHEN 325 MG TABLET PO SCH ×3 (06:15→22:28)
[2020-04-04] MEDS: FLUTICASONE/UMECLIDIN/VILANTER 100-62.5-25 MCG/DOSE IH SCH (09:04)
[2020-04-04] MEDS: AMLODIPINE BESYLATE 10 MG TABLET PO SCH (09:04)
[2020-04-04] MEDS: ENOXAPARIN SODIUM INJ 40 MG/0.4 ML DISP.SYRIN SUBCUT SCH (09:04)
[2020-04-04] MEDS: VALSARTAN 160 MG TABLET PO SCH (09:04)
[2020-04-04] MEDS: POTASSI CL 20 MEQ/D5-1/2NS 1L 1,000 ML IV PRN (09:07)
[2020-04-04 11:54] LABS: ABSOLUTE BASOPHILS # (AUTO) 0.1 10^3/uL (0.0-0.2); ABSOLUTE EOSINOPHILS # (AUTO) 0.2 10^3/uL (0.0-0.6); ABSOLUTE LYMPHOCYTES (AUTO) 1.4 10^3/uL (0.5-4.7); ABSOLUTE MONOCYTES (AUTO) 0.9 10^3/uL (0.1-1.4); ABSOLUTE NEUT (AUTO) 8.9 10^3/uL (1.7-8.2); BASOPHILS % (AUTO) 0.5 % (0-2); EOSINOPHILS % (AUTO) 1.6 % (0-6); HEMATOCRIT 28.8 % (36.0-47.0); HEMOGLOBIN 9.3 g/dL (12.0-15.5); MEAN CORPUSCULAR HEMOGLOBIN 24.1 pg (27.0-33.4); MEAN CORPUSCULAR HGB CONC 32.3 g/dL (32.0-36.0); MEAN CORPUSCULAR VOLUME 75 fl (80-97); MONOCYTES % (AUTO) 7.9 % (3-13); PLATELET COUNT 266 10^3/uL (150-450); RED BLOOD COUNT 3.86 10^6/uL (3.72-5.28); TOTAL CELLS COUNTED % (AUTO) 100 %; WHITE BLOOD COUNT 11.4 10^3/uL (4.0-10.5)
[2020-04-04 12:05] LABS: ANION GAP 8 (5-19); BLOOD UREA NITROGEN 15 mg/dL (7-20); CALCIUM 9.3 mg/dL (8.4-10.2); CARBON DIOXIDE 25 mmol/L (22-30); CHLORIDE 100 mmol/L (98-107); GLUCOSE 138 mg/dL (75-110)
[2020-04-04 12:10] LABS: POTASSIUM 4.1 mmol/L (3.6-5.0)
--- NOTE | 2020-04-04 13:19 | PDOC PROGRESS REPORT ---
Subjective Progress Note for:: 04/04/20 Subjective:: Patient seen by the bedside, I spoke to the daughter for a long time about disposition, the surgeons will not place a PEG tube without intubation and mechanical ventilation because of persistent SARS-CoV-2 positivity result. 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 She is at increased risk of aspiration from the perspective of speech therapy, patient's daughter a trained physical therapist, she was by the bedside when she underwent speech evaluation she is of the opinion that patient could probably eat by mouth but it has to be administered very slowly which obviously is seems the hospital staff not willing to do that. The conclusion is for the patient to be discharged home sometime next week with home health and other durable that she may need, including hospital bed etc. Reason For Visit: COPD R/O COVID, EXPOSURE TO SARS COV 2 INFECTION Physical Exam Vital Signs: Temp Pulse Resp BP Pulse Ox 98.3 F 87 16 144/75 H 100 04/04/20 11:19 04/04/20 11:19 04/04/20 11:19 04/04/20 11:19 04/04/20 11:19 Intake & Output 04/03/20 04/04/20 04/05/20 06:59 06:59 06:59 Intake Total 1000 1220 1000 Output Total 0 Balance 1000 1220 1000 Weight 46.2 kg 46.3 kg Results Laboratory Results: 04/04/20 11:16 04/04/20 11:16 04/04/20 04/04/20 11:16 11:16 WBC 11.4 H RBC 3.86 Hgb 9.3 L Hct 28.8 L MCV 75 L MCH 24.1 L MCHC 32.3 RDW 23.0 H Plt Count 266 Seg Neutrophils % 78.0 Sodium 132.6 L Potassium 4.1 Chloride 100 Carbon Dioxide 25 Anion Gap 8 BUN 15 Creatinine 0.45 L Est GFR ( Amer) > 60 Glucose 138 H Calcium 9.3 03/10/20 03/10/20 03/11/20 22:33 22:33 03:40 Creatine Kinase 225 H CK-MB (CK-2) 0.54 Troponin I < 0.012 < 0.012 NT-Pro-B Natriuret Pep 03/11/20 03/11/20 03/11/20 07:17 07:17 07:17 Creatine Kinase 368 H CK-MB (CK-2) 0.80 Troponin I < 0.012 NT-Pro-B Natriuret Pep 309 03/11/20 03/11/20 03/11/20 13:54 13:54 19:34 Creatine Kinase 296 H 250 H CK-MB (CK-2) 0.87 Troponin I < 0.012 NT-Pro-B Natriuret Pep 03/11/20 19:34 Creatine Kinase CK-MB (CK-2) 0.63 Troponin I 0.015 NT-Pro-B Natriuret Pep Impressions: Head CT 03/12/20 00:00 IMPRESSION: No acute intracranial findings. Head MRI 03/23/20 00:00 IMPRESSION: ATROPHY AND CHRONIC MICRO-VASCULAR ISCHEMIC CHANGES. OTHERWISE NORMAL MRI OF THE BRAIN WITHOUT INTRAVENOUS GADOLINIUM CONTRAST. EVIDENCE OF ACUTE STROKE: NO. Chest X-Ray 03/25/20 00:00 IMPRESSION: The NG tube extends into the stomach. KUB X-Ray 04/02/20 21:14 IMPRESSION: Side-port for the nasogastric tube lies near the gastroesophageal junction. Recommend advancement by at least 8 cm for optimal placement. copyright 2010 [employer]- All Rights Reserved Assessment & Plan - Diagnosis (1) Encephalopathy due to COVID-19 virus Is this a current diagnosis for this admission?: Yes (2) COVID-19 Is this a current diagnosis for this admission?: Yes (3) COPD (chronic obstructive pulmonary disease) Qualifiers: COPD type: unspecified COPD Qualified Code(s): J44.9 - Chronic obstructive pulmonary disease, unspecified Is this a current diagnosis for this admission?: Yes (4) IHSS (idiopathic hypertrophic subaortic stenosis) Is this a current diagnosis for this admission?: Yes (5) Essential (primary) hypertension Is this a current diagnosis for this admission?: Yes (6) Metabolic encephalopathy Is this a current diagnosis for this admission?: Yes - Time Time Spent with patient: 25-34 minutes Level of Care: IMCU Anticipated discharge: Home Anticipated DC Timeframe: within 72 hours
[2020-04-05] MEDS: POTASSI CL 20 MEQ/D5-1/2NS 1L 1,000 ML IV PRN ×2 (00:58→15:21)
[2020-04-05] MEDS: METOPROLOL TARTRATE 50 MG TABLET PO SCH ×2 (06:27→17:39)
[2020-04-05] MEDS: ACETAMINOPHEN 325 MG TABLET PO SCH ×3 (06:27→22:11)
[2020-04-05] MEDS: AMLODIPINE BESYLATE 10 MG TABLET PO SCH (07:47)
[2020-04-05] MEDS: ENOXAPARIN SODIUM INJ 40 MG/0.4 ML DISP.SYRIN SUBCUT SCH (07:47)
[2020-04-05] MEDS: CLONIDINE 0.3 MG/24 HR PATCH.TDWK TD SCH (09:43)
[2020-04-05] MEDS: FLUTICASONE/UMECLIDIN/VILANTER 100-62.5-25 MCG/DOSE IH SCH (09:43)
[2020-04-05] MEDS: VALSARTAN 160 MG TABLET PO SCH (09:43)
--- NOTE | 2020-04-05 13:52 | PDOC PROGRESS REPORT ---
Subjective Progress Note for:: 04/05/20 Subjective:: Patient seen by the bedside, I spoke to the daughter for a long time about disposition, the surgeons will not place a PEG tube without intubation and mechanical ventilation because of persistent SARS-CoV-2 positivity result. 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 She is at increased risk of aspiration from the perspective of speech therapy, patient's daughter a trained physical therapist, she was by the bedside when she underwent speech evaluation she is of the opinion that patient could probably eat by mouth but it has to be administered very slowly which obviously is seems the hospital staff not willing to do that. The conclusion is for the patient to be discharged home sometime next week with home health and other durable that she may need, including hospital bed etc. Reason For Visit: COPD R/O COVID, EXPOSURE TO SARS COV 2 INFECTION Physical Exam Vital Signs: Temp Pulse Resp BP Pulse Ox 97.6 F 79 18 127/68 H 98 04/05/20 10:00 04/05/20 10:00 04/05/20 10:00 04/05/20 10:00 04/05/20 10:00 Intake & Output 04/04/20 04/05/20 04/06/20 06:59 06:59 06:59 Intake Total 1220 2705 Balance 1220 2705 Weight 46.3 kg 50.3 kg Results Laboratory Results: 04/04/20 11:16 04/04/20 11:16 03/10/20 03/10/20 03/11/20 22:33 22:33 03:40 Creatine Kinase 225 H CK-MB (CK-2) 0.54 Troponin I < 0.012 < 0.012 NT-Pro-B Natriuret Pep 03/11/20 03/11/20 03/11/20 07:17 07:17 07:17 Creatine Kinase 368 H CK-MB (CK-2) 0.80 Troponin I < 0.012 NT-Pro-B Natriuret Pep 309 03/11/20 03/11/20 03/11/20 13:54 13:54 19:34 Creatine Kinase 296 H 250 H CK-MB (CK-2) 0.87 Troponin I < 0.012 NT-Pro-B Natriuret Pep 03/11/20 19:34 Creatine Kinase CK-MB (CK-2) 0.63 Troponin I 0.015 NT-Pro-B Natriuret Pep Impressions: Head CT 03/12/20 00:00 IMPRESSION: No acute intracranial findings. Head MRI 03/23/20 00:00 IMPRESSION: ATROPHY AND CHRONIC MICRO-VASCULAR ISCHEMIC CHANGES. OTHERWISE NORMAL MRI OF THE BRAIN WITHOUT INTRAVENOUS GADOLINIUM CONTRAST. EVIDENCE OF ACUTE STROKE: NO. Chest X-Ray 03/25/20 00:00 IMPRESSION: The NG tube extends into the stomach. KUB X-Ray 04/02/20 21:14 IMPRESSION: Side-port for the nasogastric tube lies near the gastroesophageal junction. Recommend advancement by at least 8 cm for optimal placement. copyright 2010 [employer]- All Rights Reserved Assessment & Plan - Diagnosis (1) Encephalopathy due to COVID-19 virus Is this a current diagnosis for this admission?: Yes (2) COVID-19 Is this a current diagnosis for this admission?: Yes (3) COPD (chronic obstructive pulmonary disease) Qualifiers: COPD type: unspecified COPD Qualified Code(s): J44.9 - Chronic obstructive pulmonary disease, unspecified Is this a current diagnosis for this admission?: Yes (4) IHSS (idiopathic hypertrophic subaortic stenosis) Is this a current diagnosis for this admission?: Yes (5) Essential (primary) hypertension Is this a current diagnosis for this admission?: Yes (6) Metabolic encephalopathy Is this a current diagnosis for this admission?: Yes - Time Time Spent with patient: Less than 15 minutes Level of Care: IMCU Medications reviewed and adjusted accordingly: Yes Anticipated discharge: Home Anticipated DC Timeframe: within 36 hours
[2020-04-06] MEDS: ACETAMINOPHEN 325 MG TABLET PO SCH ×2 (05:24→13:43)
[2020-04-06] MEDS: METOPROLOL TARTRATE 50 MG TABLET PO SCH ×2 (05:25→18:00)
[2020-04-06] MEDS: POTASSI CL 20 MEQ/D5-1/2NS 1L 1,000 ML IV PRN (06:49)
[2020-04-06] MEDS: ENOXAPARIN SODIUM INJ 40 MG/0.4 ML DISP.SYRIN SUBCUT SCH (08:35)
[2020-04-06] MEDS: AMLODIPINE BESYLATE 10 MG TABLET PO SCH (08:35)
[2020-04-06] MEDS: VALSARTAN 160 MG TABLET PO SCH (10:15)
[2020-04-06] MEDS: FLUTICASONE/UMECLIDIN/VILANTER 100-62.5-25 MCG/DOSE IH SCH (10:15)
--- NOTE | 2020-04-06 19:23 | PDOC PROGRESS REPORT ---
Subjective Progress Note for:: 04/06/20 Subjective:: Patient seen by the bedside, I spoke to the daughter for a long time about disposition, the surgeons will not place a PEG tube without intubation and mechanical ventilation because of persistent SARS-CoV-2 positivity result. 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 She is at increased risk of aspiration from the perspective of speech therapy, patient's daughter a trained physical therapist, she was by the bedside when she underwent speech evaluation she is of the opinion that patient could probably eat by mouth but it has to be administered very slowly which obviously is seems the hospital staff not willing to do that. The conclusion is for the patient to be discharged home sometime next week with home health and other durable that she may need, including hospital bed etc. Reason For Visit: COPD R/O COVID, EXPOSURE TO SARS COV 2 INFECTION Physical Exam Vital Signs: Temp Pulse Resp BP Pulse Ox 98.6 F 92 18 145/72 H 97 04/06/20 15:15 04/06/20 15:15 04/06/20 15:15 04/06/20 15:15 04/06/20 15:15 Intake & Output 04/05/20 04/06/20 04/07/20 06:59 06:59 06:59 Intake Total 2705 3247 1780 Balance 2705 3247 1780 Weight 50.3 kg 51.6 kg 51.6 kg Results Laboratory Results: 04/04/20 11:16 04/04/20 11:16 03/10/20 03/10/20 03/11/20 22:33 22:33 03:40 Creatine Kinase 225 H CK-MB (CK-2) 0.54 Troponin I < 0.012 < 0.012 NT-Pro-B Natriuret Pep 03/11/20 03/11/20 03/11/20 07:17 07:17 07:17 Creatine Kinase 368 H CK-MB (CK-2) 0.80 Troponin I < 0.012 NT-Pro-B Natriuret Pep 309 03/11/20 03/11/20 03/11/20 13:54 13:54 19:34 Creatine Kinase 296 H 250 H CK-MB (CK-2) 0.87 Troponin I < 0.012 NT-Pro-B Natriuret Pep 03/11/20 19:34 Creatine Kinase CK-MB (CK-2) 0.63 Troponin I 0.015 NT-Pro-B Natriuret Pep Impressions: Head CT 03/12/20 00:00 IMPRESSION: No acute intracranial findings. Head MRI 03/23/20 00:00 IMPRESSION: ATROPHY AND CHRONIC MICRO-VASCULAR ISCHEMIC CHANGES. OTHERWISE NORMAL MRI OF THE BRAIN WITHOUT INTRAVENOUS GADOLINIUM CONTRAST. EVIDENCE OF ACUTE STROKE: NO. Chest X-Ray 03/25/20 00:00 IMPRESSION: The NG tube extends into the stomach. KUB X-Ray 04/02/20 21:14 IMPRESSION: Side-port for the nasogastric tube lies near the gastroesophageal junction. Recommend advancement by at least 8 cm for optimal placement. copyright 2010 [employer]- All Rights Reserved Assessment & Plan - Diagnosis (1) Encephalopathy due to COVID-19 virus Is this a current diagnosis for this admission?: Yes (2) COVID-19 Is this a current diagnosis for this admission?: Yes (3) COPD (chronic obstructive pulmonary disease) Qualifiers: COPD type: unspecified COPD Qualified Code(s): J44.9 - Chronic obstructive pulmonary disease, unspecified Is this a current diagnosis for this admission?: Yes (4) IHSS (idiopathic hypertrophic subaortic stenosis) Is this a current diagnosis for this admission?: Yes (5) Essential (primary) hypertension Is this a current diagnosis for this admission?: Yes (6) Metabolic encephalopathy Is this a current diagnosis for this admission?: Yes - Time Time Spent with patient: 25-34 minutes Level of Care: IMCU Medications reviewed and adjusted accordingly: Yes Anticipated discharge: Home Anticipated DC Timeframe: within 72 hours
--- NOTE | 2020-04-07 06:14 | RADIOLOGY REPORT (SQ) ---
EXAM DESCRIPTION: XR CHEST 1 VIEW COMPLETED DATE/TME: 04/07/2020 00:00 CLINICAL HISTORY: NG tube placement COMPARISON: 03/25/2020 FINDINGS: Single frontal view of the chest. Tubes and lines: NG tube with tip in side-port in the stomach. Cardiomediastinal silhouette: Stable Lungs: No consolidation, pneumothorax, or pleural effusion. Bones: Stable. Upper abdomen: Stable. IMPRESSION: 1. NG tube with tip in appropriate position.
[2020-04-07] MEDS: METOPROLOL TARTRATE 50 MG TABLET PO SCH ×2 (06:26→17:09)
[2020-04-07] MEDS: ACETAMINOPHEN 325 MG TABLET PO SCH ×3 (06:26→22:23)
[2020-04-07] MEDS: AMLODIPINE BESYLATE 10 MG TABLET PO SCH (08:01)
[2020-04-07] MEDS: ENOXAPARIN SODIUM INJ 40 MG/0.4 ML DISP.SYRIN SUBCUT SCH (08:02)
--- NOTE | 2020-04-07 09:18 | PDOC PROGRESS REPORT ---
Subjective Progress Note for:: 04/07/20 Subjective:: Patient seen by the bedside, I spoke to the daughter for a long time about disposition, the surgeons will not place a PEG tube without intubation and mechanical ventilation because of persistent SARS-CoV-2 positivity result. 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 She is at increased risk of aspiration from the perspective of speech therapy, patient's daughter a trained physical therapist, she was by the bedside when she underwent speech evaluation she is of the opinion that patient could probably eat by mouth but it has to be administered very slowly which obviously is seems the hospital staff not willing to do that. The conclusion is for the patient to be discharged home sometime next week with home health and other durable that she may need, including hospital bed etc. Reason For Visit: COPD R/O COVID, EXPOSURE TO SARS COV 2 INFECTION Physical Exam Vital Signs: Temp Pulse Resp BP Pulse Ox 98.2 F 74 19 131/80 H 97 04/07/20 07:53 04/07/20 07:53 04/07/20 07:53 04/07/20 07:53 04/07/20 07:53 Intake & Output 04/06/20 04/07/20 04/08/20 06:59 06:59 06:59 Intake Total 3247 1780 Balance 3247 1780 Weight 51.6 kg 51.6 kg Results Laboratory Results: 04/04/20 11:16 04/04/20 11:16 03/10/20 03/10/20 03/11/20 22:33 22:33 03:40 Creatine Kinase 225 H CK-MB (CK-2) 0.54 Troponin I < 0.012 < 0.012 NT-Pro-B Natriuret Pep 03/11/20 03/11/20 03/11/20 07:17 07:17 07:17 Creatine Kinase 368 H CK-MB (CK-2) 0.80 Troponin I < 0.012 NT-Pro-B Natriuret Pep 309 03/11/20 03/11/20 03/11/20 13:54 13:54 19:34 Creatine Kinase 296 H 250 H CK-MB (CK-2) 0.87 Troponin I < 0.012 NT-Pro-B Natriuret Pep 03/11/20 19:34 Creatine Kinase CK-MB (CK-2) 0.63 Troponin I 0.015 NT-Pro-B Natriuret Pep Impressions: Head CT 03/12/20 00:00 IMPRESSION: No acute intracranial findings. Head MRI 03/23/20 00:00 IMPRESSION: ATROPHY AND CHRONIC MICRO-VASCULAR ISCHEMIC CHANGES. OTHERWISE NORMAL MRI OF THE BRAIN WITHOUT INTRAVENOUS GADOLINIUM CONTRAST. EVIDENCE OF ACUTE STROKE: NO. KUB X-Ray 04/02/20 21:14 IMPRESSION: Side-port for the nasogastric tube lies near the gastroesophageal junction. Recommend advancement by at least 8 cm for optimal placement. copyright 2010 [employer]- All Rights Reserved Chest X-Ray 04/07/20 00:00 IMPRESSION: 1. NG tube with tip in appropriate position. Assessment & Plan - Diagnosis (1) Encephalopathy due to COVID-19 virus Is this a current diagnosis for this admission?: Yes (2) COVID-19 Is this a current diagnosis for this admission?: Yes (3) COPD (chronic obstructive pulmonary disease) Qualifiers: COPD type: unspecified COPD Qualified Code(s): J44.9 - Chronic obstructive pulmonary disease, unspecified Is this a current diagnosis for this admission?: Yes (4) IHSS (idiopathic hypertrophic subaortic stenosis) Is this a current diagnosis for this admission?: Yes (5) Essential (primary) hypertension Is this a current diagnosis for this admission?: Yes (6) Metabolic encephalopathy Is this a current diagnosis for this admission?: Yes - Time Time Spent with patient: Less than 15 minutes Level of Care: IMCU Anticipated discharge: Home Anticipated DC Timeframe: within 72 hours
[2020-04-07] MEDS: VALSARTAN 160 MG TABLET PO SCH (10:11)
[2020-04-07] MEDS: FLUTICASONE/UMECLIDIN/VILANTER 100-62.5-25 MCG/DOSE IH SCH (10:11)
[2020-04-07] MEDS: POTASSI CL 20 MEQ/D5-1/2NS 1L 1,000 ML IV PRN (18:24)
[2020-04-08] MEDS: ACETAMINOPHEN 325 MG TABLET PO SCH ×2 (05:58→13:02)
[2020-04-08] MEDS: METOPROLOL TARTRATE 50 MG TABLET PO SCH (05:58)
[2020-04-08] MEDS: ENOXAPARIN SODIUM INJ 40 MG/0.4 ML DISP.SYRIN SUBCUT SCH (08:44)
[2020-04-08] MEDS: AMLODIPINE BESYLATE 10 MG TABLET PO SCH (08:44)
[2020-04-08] MEDS: POTASSI CL 20 MEQ/D5-1/2NS 1L 1,000 ML IV PRN (09:02)
[2020-04-08] MEDS: VALSARTAN 160 MG TABLET PO SCH (10:13)
[2020-04-08] MEDS: FLUTICASONE/UMECLIDIN/VILANTER 100-62.5-25 MCG/DOSE IH SCH (10:13)
--- NOTE | 2020-04-08 14:29 | PDOC DISCHARGE SUMMARY ---
Impression - Admit/DC Date/PCP Admission Date/Primary Care Provider: 03/11/20 04:24 BIA CASTANEDA MD Discharge Date: 04/08/20 - Discharge Diagnosis (1) Encephalopathy due to COVID-19 virus Is this a current diagnosis for this admission?: Yes (2) COVID-19 Is this a current diagnosis for this admission?: Yes (3) COPD (chronic obstructive pulmonary disease) Is this a current diagnosis for this admission?: Yes (4) IHSS (idiopathic hypertrophic subaortic stenosis) Is this a current diagnosis for this admission?: Yes (5) Essential (primary) hypertension Is this a current diagnosis for this admission?: Yes (6) Metabolic encephalopathy Is this a current diagnosis for this admission?: Yes - Additional Information Resuscitation Status: Do Not Resuscitate Referrals: BIA CASTANEDA MD [Primary Care Provider] - 04/16/20 10:45 am Prescriptions: Clonidine [Catapres-Tts 3 (0.3 mg/24 Hr) Transderm Patch] 1 each TD Cho@10 #12 patch.tdwk Valsartan [Diovan 160 mg Tablet] 320 mg PO DAILY #90 tablet Amlodipine Besylate [Norvasc 10 mg Tablet] 10 mg PO QAM #90 tablet Tiotropium [place] [Spiriva Respimat] 4 gm IH DAILY #2 mist.inhal Home Medications: Megestrol Acetate 40 mg PO BID 01/27/20 Metoprolol Tartrate [Lopressor 50 mg Tablet] 50 mg PO Q12 #180 tablet 01/30/20 Acetaminophen 500 mg PO Q8 03/11/20 Polyethylene Glycol 3350 [Miralax Powder 17 gm/Packet] 1 packet PO QAM 03/11/20 Amlodipine Besylate [Norvasc 10 mg Tablet] 10 mg PO QAM #90 tablet 04/08/20 Clonidine [Catapres-Tts 3 (0.3 mg/24 Hr) Transderm Patch] 1 each TD Cho@10 #12 patch.tdwk 04/08/20 Tiotropium [place] [Spiriva Respimat] 4 gm IH DAILY #2 mist.inhal 04/08/20 Valsartan [Diovan 160 mg Tablet] 320 mg PO DAILY #90 tablet 04/08/20 History of Present Illiness History of Present Illness: RONALDO CORADO is a 84 year old female, She has a history of very severe chronic obstructive lung disease, ongoing tobacco abuse, Idiopathic hypertrophic subaortic stenosis She stays with her daughter who recently was positive for COVID.I had a telemedicine encounter with 2 days ago at the time she looks very sick, I prescribed antibiotic azithromycin knowing that she has very severe COPD but was very concerned that she may have COVID The daughter primary caregiver was positive for SARS-CoV-2 infection 2 days ago. She has been running fever with low-grade temperature patient's daughter stated that she has not been eating or drinking in the last couple of days. She has disabling arthropathy of the knee that has essentially made her nonambulatory. She was transported to the emergency room last night because of altered mental status and adult failure to thrive the initial chest imaging, the chest x-ray was negative. Patient most likely have COVID unfortunately the rapid covid tests is only reserved for patient for OR She is a DNR status from previous encounter this is to be maintained Hospital Course Hospital Course: Patient was admitted for the management of COVID,And COVID related encephalopathy,Patient with depressed sensorium throughout hospital stay. She has underlining chronic obstructive pulmonary disease, there was no definitive infiltrate or consolidation that suggest pneumonia.She was empirically treated with intravenous dexamethasone at 6 mg/day in divided doses she received the intravenous medication for 10 days,She had a CAT scan of the head initially on admission and this was negative subsequent MRI brain was negative for any acute stroke. She was kept n.p.o., seen by speech therapy, nutrition was achieved through nasogastric tube.Hospital course was prolonged partly because patient depressed sensorium, encephalopathy, and the desire of the family to take her home, the daughter requested for a PEG tube, is subsequent SARS-CoV-2 testing done came back again positive, the surgeon that was to insert the PEG tube recommended that patient needed to be intubated a measure needed to control infection But the family declined that option because of concern that if she is intubated it may be difficult to get her off the respirator because she has very severe COPD due to many years of tobacco use . Physical Exam Vital Signs: Temp Pulse Resp BP Pulse Ox 98.3 F 79 17 136/75 H 98 04/08/20 11:29 04/08/20 11:29 04/08/20 11:29 04/08/20 11:29 04/08/20 11:29 Intake & Output 04/07/20 04/08/20 04/09/20 06:59 06:59 06:59 Intake Total 2780 690 1250 Balance 2780 690 1250 Weight 51.6 kg 47.9 kg General appearance: PRESENT: no acute distress Eye exam: PRESENT: PERRLA Respiratory exam: PRESENT: clear to auscultation olivier Cardiovascular exam: PRESENT: +S1, +S2 Results Laboratory Results: WBC 11.4 10^3/uL (4.0-10.5) H 04/04/20 11:16 RBC 3.86 10^6/uL (3.72-5.28) 04/04/20 11:16 Hgb 9.3 g/dL (12.0-15.5) L 04/04/20 11:16 Hct 28.8 % (36.0-47.0) L 04/04/20 11:16 MCV 75 fl (80-97) L 04/04/20 11:16 MCH 24.1 pg (27.0-33.4) L 04/04/20 11:16 MCHC 32.3 g/dL (32.0-36.0) 04/04/20 11:16 RDW 23.0 % (11.5-14.0) H 04/04/20 11:16 Plt Count 266 10^3/uL (150-450) 04/04/20 11:16 Lymph % (Auto) 12.0 % (13-45) L 04/04/20 11:16 [place] % (Auto) 7.9 % (3-13) 04/04/20 11:16 Eos % (Auto) 1.6 % (0-6) 04/04/20 11:16 Baso % (Auto) 0.5 % (0-2) 04/04/20 11:16 Absolute Neuts (auto) 8.9 10^3/uL (1.7-8.2) H 04/04/20 11:16 Absolute Lymphs (auto) 1.4 10^3/uL (0.5-4.7) 04/04/20 11:16 Absolute Monos (auto) 0.9 10^3/uL (0.1-1.4) 04/04/20 11:16 Absolute Eos (auto) 0.2 10^3/uL (0.0-0.6) 04/04/20 11:16 Absolute Basos (auto) 0.1 10^3/uL (0.0-0.2) 04/04/20 11:16 Seg Neutrophils % 78.0 % (42-78) 04/04/20 11:16 PT 13.8 SEC (11.4-15.4) 03/11/20 07:17 INR 1.06 03/11/20 07:17 APTT 30.3 SEC (23.5-35.8) 03/11/20 07:17 Sodium 132.6 mmol/L (137-145) L 04/04/20 11:16 Potassium 4.1 mmol/L (3.6-5.0) 04/04/20 11:16 Chloride 100 mmol/L (98-107) 04/04/20 11:16 Carbon Dioxide 25 mmol/L (22-30) 04/04/20 11:16 Anion Gap 8 (5-19) 04/04/20 11:16 BUN 15 mg/dL (7-20) 04/04/20 11:16 Creatinine 0.45 mg/dL (0.52-1.25) L 04/04/20 11:16 Est GFR ( Amer) > 60 (>60) 04/04/20 11:16 Est GFR (MDRD) Non-Af > 60 (>60) 04/04/20 11:16 Glucose 138 mg/dL (75-110) H 04/04/20 11:16 POC Glucose 133 mg/dL (70-110) H 04/08/20 11:30 Hemoglobin A1c % 5.1 % (4.7-6.0) 03/12/20 06:13 Calcium 9.3 mg/dL (8.4-10.2) 04/04/20 11:16 Phosphorus 2.8 mg/dL (2.5-4.5) 03/25/20 04:48 Magnesium 1.8 mg/dL (1.6-2.3) 03/25/20 04:48 Total Bilirubin 0.5 mg/dL (0.2-1.3) 03/23/20 06:18 Direct Bilirubin 0.0 mg/dL (0.0-0.4) 03/23/20 06:18 Neonat Total Bilirubin Not Reportable 03/23/20 06:18 Neonat Direct Bilirubin Not Reportable 03/23/20 06:18 Neonat Indirect Bili Not Reportable 03/23/20 06:18 AST 19 U/L (14-36) 03/23/20 06:18 ALT 16 U/L (<35) 03/23/20 06:18 Alkaline Phosphatase 67 U/L (38-126) 03/23/20 06:18 Ammonia < 8.7 umol/L (9-33) L 03/11/20 07:17 Creatine Kinase 250 U/L (30-135) H 03/11/20 19:34 CK-MB (CK-2) 0.63 ng/mL (<4.55) 03/11/20 19:34 Troponin I 0.015 ng/mL 03/11/20 19:34 NT-Pro-B Natriuret Pep 309 pg/mL (<450) 03/11/20 07:17 Total Protein 6.6 g/dL (6.3-8.2) 03/23/20 06:18 Albumin 3.4 g/dL (3.5-5.0) L 03/23/20 06:18 Triglycerides 74 mg/dL (<150) 03/12/20 06:13 Cholesterol 113.47 mg/dL (0-200) 03/12/20 06:13 LDL Cholesterol Direct 65 mg/dL (<100) 03/12/20 06:13 VLDL Cholesterol 15.0 mg/dL (10-31) 03/12/20 06:13 HDL Cholesterol 32 mg/dL (>40) L 03/12/20 06:13 Amylase 159 U/L (30-110) H 03/11/20 07:17 Lipase 284.8 U/L (23-300) 03/11/20 07:17 TSH 2.06 uIU/mL (0.47-4.68) 03/11/20 07:17 Free T4 1.44 ng/dL (0.78-2.19) 03/11/20 07:17 Urine Color YELLOW 03/11/20 02:50 Urine Appearance SLIGHTLY-CLOUDY 03/11/20 02:50 Urine pH 5.0 (5.0-9.0) 03/11/20 02:50 Ur Specific [place] 1.015 03/11/20 02:50 Urine Protein 100 mg/dL (NEGATIVE) H 03/11/20 02:50 Urine Glucose (UA) NEGATIVE mg/dL (NEGATIVE) 03/11/20 02:50 Urine Ketones NEGATIVE mg/dL (NEGATIVE) 03/11/20 02:50 Urine Blood MODERATE (NEGATIVE) H 03/11/20 02:50 Urine Nitrite (Reflex) NEGATIVE (NEGATIVE) 03/11/20 02:50 Urine Bilirubin NEGATIVE (NEGATIVE) 03/11/20 02:50 Urine Urobilinogen NEGATIVE mg/dL (<2.0) 03/11/20 02:50 Leukocyte Esterase Rfl NEGATIVE (NEGATIVE) 03/11/20 02:50 Urine RBC (Auto) 2 /HPF 03/11/20 02:50 U Hyaline Cast (Auto) 3 /LPF 03/11/20 02:50 Urine WBC (Reflex) 1 /HPF 03/11/20 02:50 Urine Mucus (Auto) RARE /LPF 03/11/20 02:50 Urine Ascorbic Acid NEGATIVE (NEGATIVE) 03/11/20 02:50 COVID-19 Source NASOPHARYNGEAL 04/02/20 10:30 COVID-19 (JEVON) DETECTED H 04/02/20 10:30 03/10/20 03/11/20 03/11/20 22:33 03:40 07:17 CK-MB (CK-2) 0.54 Troponin I < 0.012 < 0.012 NT-Pro-B Natriuret Pep 309 03/11/20 03/11/20 03/11/20 07:17 13:54 19:34 CK-MB (CK-2) 0.80 0.87 0.63 Troponin I < 0.012 < 0.012 0.015 NT-Pro-B Natriuret Pep Impressions: Chest X-Ray 03/10/20 21:52 IMPRESSION: No acute cardiopulmonary process copyright 2011 [employer]- All Rights Reserved Head CT 03/11/20 00:19 IMPRESSION: 1. No acute intracranial abnormality by CT criteria. This exam was performed according to our departmental dose-optimization program, which includes automated exposure control, adjustment of the mA and/or kV according to patient size and/or use of iterative reconstruction technique. Head CT 03/12/20 00:00 IMPRESSION: No acute intracranial findings. Chest X-Ray 03/16/20 00:00 IMPRESSION: NO ACUTE RADIOGRAPHIC FINDING IN THE CHEST. Head MRI 03/23/20 00:00 IMPRESSION: ATROPHY AND CHRONIC MICRO-VASCULAR ISCHEMIC CHANGES. OTHERWISE NORMAL MRI OF THE BRAIN WITHOUT INTRAVENOUS GADOLINIUM CONTRAST. EVIDENCE OF ACUTE STROKE: NO. KUB X-Ray 03/23/20 08:45 IMPRESSION: Limited view the abdomen demonstrates an NG tube in place. Catheter tip overlies the midline at the level of L3. Chest X-Ray 03/25/20 00:00 IMPRESSION: The NG tube extends into the stomach. KUB X-Ray 04/02/20 21:14 IMPRESSION: Side-port for the nasogastric tube lies near the gastroesophageal junction. Recommend advancement by at least 8 cm for optimal placement. copyright 2010 [employer]- All Rights Reserved Chest X-Ray 04/07/20 00:00 IMPRESSION: 1. NG tube with tip in appropriate position. Stroke Is this a Stroke Patient?: No Acute Heart Failure - Is this a Heart Failure Patient?: No
[2020-04-08 16:03] VITALS: BP 168/86
== END 2020-04-08 16:00 | disposition home health service (06) | DRG 177 ==
LOC: ER 21:07 → EH 03-11 04:24 → 3N 03-11 05:55
PROVIDERS: ADMIT Internal Medicine; ATTEND Internal Medicine
DX: U07.1 COVID-19 (principal); G93.41 Metabolic encephalopathy; J44.1 Chronic obstructive pulmonary disease with (acute) exacerbation; I42.1 Obstructive hypertrophic cardiomyopathy; Z68.1 Body mass index [BMI] 19.9 or less, adult; R13.10 Dysphagia, unspecified; I50.9 Heart failure, unspecified; I11.0 Hypertensive heart disease with heart failure; R40.0 Somnolence; F17.210 Nicotine dependence, cigarettes, uncomplicated; Z66 Do not resuscitate; R62.7 Adult failure to thrive
CPT/HCPCS: 36415; 51701; 70450; 70551; 71045; 74018; 80048; 80053; 80061; 80076; 81001; 82140; 82150; 82550; 82553; 82962; 83036; 83690; 83735; 83880; 84100; 84439; 84443; 84484; 85025; 85027; 85610; 85730; 87040; 87070; 87635; 87880; 93005; 93010; 99201; 99211; 99285; C9803; J0360; J0696; J1100; J1644; J1650; J2270; J3480; J3490; J7030

== ENCOUNTER 2020-07-02 20:49 | Observation (INO) | payer MEDICARE ==
--- NOTE | 2020-07-02 22:07 | ER Document Report ---
ED General - General Chief Complaint: Probable Seizure Stated Complaint: SEIZURE Primary Care Provider: BIA CASTANEDA MD [Primary Care Provider] - Follow up as needed Notes: 84-year-old female with dementia, COPD, stroke, hypertension, CHF, Covid infection few months ago presents with possible syncopal episode less likely seizure just prior to arrival. Patient's daughter states that she was giving patient her medications that she had given her her metoprolol which is her only "do not crush" medication and patient started having gurgling sounds and then eyes rolled back in her bilateral hands were shaking for about a minute and then patient became responsive again. Patient had small amount of spit up after episode. patient now saying she has had cough for a day but with history limited by dementia. Daughter says that patient was well before this episode. Patient and daughter denies any trauma, recent illness, fever, headache, neck pain or stiffness, chest pain, shortness of breath, urinary symptoms, med changes TRAVEL OUTSIDE OF THE [place] IN LAST 30 DAYS: No - Related Data Allergies/Adverse Reactions: No Known Drug Allergies Allergy (Verified 03/27/19 16:03) shellfish derived Adverse Reaction (Verified 07/02/20 21:15) Past Medical History - General Information source: Patient, Relative, [facility] Records - Social History Smoking Status: Unknown if Ever Smoked Frequency of alcohol use: None Drug Abuse: None Family History: Reviewed & Not Pertinent - Past Medical History Cardiac Medical History: Reports: Hx Congestive Heart Failure - as per prior chart though pt and daughter deny, Hx Hypertension Denies: Hx Coronary Artery Disease, Hx Heart Attack Pulmonary Medical History: Reports: Hx Asthma, Hx Bronchitis, Hx COPD, Hx Pneumonia Denies: Hx Tuberculosis Neurological Medical History: Denies: Hx Cerebrovascular Accident, Hx Seizures Renal/ Medical History: Denies: Hx Peritoneal Dialysis Musculoskeletal Medical History: Reports Hx Arthritis Psychiatric Medical History: Reports: Hx Dementia Denies: Hx Depression Past Surgical History: Reports: Hx Hysterectomy, Hx Orthopedic Surgery - R hand carpel tunnel. Denies: Hx Pacemaker - Immunizations Hx Diphtheria, Pertussis, Tetanus Vaccination: Yes Review of Systems - Review of Systems Notes: REVIEW OF SYSTEMS: CONSTITUTIONAL : Denies fever, chills, or sweats. EENT: Denies recent cold/sinus symptoms, denies throat pain CARDIOVASCULAR: Denies chest pain, [place] RESPIRATORY: + cough, denies shortness of breath. GASTROINTESTINAL: Denies abdominal pain, nausea/vomiting. GENITOURINARY: Denies difficulty urinating, painful urination. FEMALE GENITOURINARY: Denies abnormal vaginal bleeding, vaginal discharge. MUSCULOSKELETAL: Denies neck pain, back pain. SKIN: Denies rash or skin lesions. HEMATOLOGIC : Denies easy bruising or bleeding. LYMPHATIC: Denies swollen, enlarged glands. NEUROLOGICAL: Denies headache, denies change in gait. PSYCHIATRIC: Denies anxiety or stress or depression. Physical Exam - Vital signs Vitals: Resp Pulse Ox 18 98 07/02/20 20:53 07/02/20 20:53 - Notes Notes: PHYSICAL EXAMINATION: GENERAL: Well-appearing elderly woman lying in stretcher in no acute distress HEAD: Atraumatic, normocephalic. EYES: Pupils equal round and appropriate constriction, sclera anicteric, conjunctiva are normal. ENT: nares patent, moist mucous membranes. NECK: Normal range of motion, supple without lymphadenopathy LUNGS: Bilateral loud rhonchi, good air movement, no wheezing, normal respiratory rate and effort, no accessory muscle use, no drooling, no tripoding HEART: Regular rate and rhythm, systolic murmur ABDOMEN: Soft, nontender, no guarding, no masses, no CVAT EXTREMITIES: Normal range of motion, no pitting or edema. No cyanosis. NEUROLOGICAL: Awake, alert, conversing appropriately, moves all extremities spontaneously, CN II through XII intact bilaterally, normal extremity strength and sensation. PSYCH: Normal mood, normal affect. SKIN: Warm, Dry, normal turgor, no rashes or lesions noted. Course - Re-evaluation Re-evalutation: 07/03/20 00:07 No signs of trauma on full head to toe exam which matches patient daughter's report of events. Patient with gurgling bronchi concerning for possible aspiration, but no respiratory distress at this time, normal respiratory effort, normal vitals, will continue to monitor. Symptoms more tutu to near sync opal/syncopal event and seizure, obtain head CT without any emergent findings, will continue to monitor patient for any paroxysmal arrhythmia, rule out ACS, electrolyte abnormalities, symptomatic anemia, CHF exacerbation, but symptoms most likely secondary to transient choking event from aspirating pills. Discussed patient with her daughter who denied having any other questions or concerns at this presented patient to Dr. Castaneda who has accepted patient to observation. - Vital Signs Vital signs: Temp Pulse Resp BP Pulse Ox 20 156/85 H 96 07/02/20 21:01 07/02/20 21:00 07/02/20 21:01 - Laboratory Result Diagrams: 07/02/20 23:01 07/02/20 21:12 Laboratory results interpreted by me: 07/02/20 07/02/20 07/02/20 20:57 21:12 23:01 Hgb Hct MCH RDW VBG pH 7.43 H BUN 34 H Glucose 142 H POC Glucose 145 H Calcium 10.8 H Magnesium 2.5 H 07/02/20 23:01 Hgb 11.3 L Hct 33.8 L MCH 26.7 L RDW 16.2 H VBG pH BUN Glucose POC Glucose Calcium Magnesium - EKG Interpretation by Me Additional EKG results interpreted by me: 07/03/20 00:12 Sinus rhythm, no significant ST elevations or depressions, no significant T wave abnormalities, QTc 434 Discharge - Discharge Clinical Impression: Brief loss of consciousness COPD (chronic obstructive pulmonary disease) Qualifiers: COPD type: unspecified COPD Qualified Code(s): J44.9 - Chronic obstructive pulmonary disease, unspecified Aortic valve stenosis Qualifiers: Cardiac valve disease etiology: etiology unspecified Qualified Code(s): I35.0 - Nonrheumatic aortic (valve) stenosis Disposition: ADMITTED OBSERVATION Admitting Provider: [facility] Admitted: Telemetry Referrals: BIA CASTANEDA MD [Primary Care Provider] - Follow up as needed
--- NOTE | 2020-07-02 22:35 | RADIOLOGY REPORT (SQ) ---
EXAM DESCRIPTION: XR CHEST 1 VIEW COMPLETED DATE/TME: 07/02/2020 21:56 CLINICAL HISTORY: 84 years, Female, cough post syncope COMPARISON: 04/07/2020 chest NUMBER OF VIEWS: 1 TECHNIQUE: Portable chest LIMITATIONS: None. FINDINGS: Heart size is normal. Atheromatous change of the thoracic aorta. Osteopenia. COPD. Lungs clear. No pneumothorax IMPRESSION: COPD. Lungs are clear copyright 2011 [employer]- All Rights Reserved
--- NOTE | 2020-07-02 22:35 | RADIOLOGY REPORT (SQ) ---
EXAM DESCRIPTION: CT HEAD WITHOUT IV CONTRAST COMPLETED DATE/TME: 07/02/2020 21:57 CLINICAL HISTORY: 84 years, Female, poss SZ dementia copd cough COMPARISON: March 12, 2020 TECHNIQUE: Noncontrast images of the brain were obtained. Axial, coronal, and sagittal images are provided. Images stored on PACS. All CT scanners at this facility use dose modulation, iterative reconstruction, and/or weight based dosing when appropriate to reduce radiation dose to as low as reasonably achievable (ALARA). [facility]: Dose Right [facility]: CareDose [facility]: Dose Right [facility]: Teradose 4D [facility]: Bioparaiso LIMITATIONS: None. FINDINGS: Generalized atrophy and moderately severe white matter low-attenuation are similar to the prior study. There is no acute intracranial hemorrhage, abnormal mass effect, or major vascular territorial infarction. There is no hydrocephalus. Calvarium appears intact. There is mild mucosal thickening within the right maxillary sinus floor and inferior right frontal sinus measuring up to 3 mm, without air-fluid level. IMPRESSION: 1. No acute intracranial abnormality is seen. Generalized atrophy and moderately advanced small vessel ischemic changes are again noted as before. 2. Mild paranasal sinus mucosal thickening without air-fluid level. TECHNICAL DOCUMENTATION: Quality ID # 436: Final reports with documentation of one or more dose reduction techniques (e.g., Automated exposure control, adjustment of the mA and/or kV according to patient size, use of iterative reconstruction technique) copyright 2011 [employer]- All Rights Reserved
[2020-07-02 22:48] LABS: ALBUMIN 4.3 g/dL (3.5-5.0); ALKALINE PHOSPHATASE 71 U/L (38-126); ANION GAP 10 (5-19); ASPARTATE AMINO TRANSFERASE 24 U/L (14-36); BILIRUBIN,DIRECT 0.3 mg/dL (0.0-0.4); BILIRUBIN,TOTAL 0.4 mg/dL (0.2-1.3); BLOOD UREA NITROGEN 34 mg/dL (7-20); CALCIUM 10.8 mg/dL (8.4-10.2); CARBON DIOXIDE 30 mmol/L (22-30); CHLORIDE 103 mmol/L (98-107); GLUCOSE 142 mg/dL (75-110); PHOSPHORUS 3.7 mg/dL (2.5-4.5); POTASSIUM 3.8 mmol/L (3.6-5.0); TOTAL PROTEIN 8.2 g/dL (6.3-8.2)
[2020-07-02 23:09] LABS: ABSOLUTE EOSINOPHILS # (AUTO) 0.3 10^3/uL (0.0-0.6); ABSOLUTE LYMPHOCYTES (AUTO) 1.8 10^3/uL (0.5-4.7); ABSOLUTE MONOCYTES (AUTO) 0.8 10^3/uL (0.1-1.4); ABSOLUTE NEUT (AUTO) 6.2 10^3/uL (1.7-8.2); BASOPHILS % (AUTO) 0.4 % (0-2); EOSINOPHILS % (AUTO) 3.3 % (0-6); HEMATOCRIT 33.8 % (36.0-47.0); HEMOGLOBIN 11.3 g/dL (12.0-15.5); LYMPHOCYTES % (AUTO) 19.9 % (13-45); MEAN CORPUSCULAR HEMOGLOBIN 26.7 pg (27.0-33.4); MEAN CORPUSCULAR HGB CONC 33.5 g/dL (32.0-36.0); MEAN CORPUSCULAR VOLUME 80 fl (80-97); PLATELET COUNT 272 10^3/uL (150-450); RED BLOOD COUNT 4.25 10^6/uL (3.72-5.28); RED CELL DISTRIBUTION WIDTH 16.2 % (11.5-14.0); SEGMENTED NEUTROPHILS % (AUTO) 67.4 % (42-78); TOTAL CELLS COUNTED % (AUTO) 100 %; VENOUS BLOOD BASE EXCESS 4.9 mmol/L; VENOUS BLOOD HCO3 29.9 mmol/L (20-32); VENOUS BLOOD PCO2 45.8 mmHg (35-63); VENOUS BLOOD PH 7.43 (7.30-7.42); WHITE BLOOD COUNT 9.3 10^3/uL (4.0-10.5)
[2020-07-02 23:12] LABS: NT PRO BNP 433 pg/mL (<450)
[2020-07-02 23:14] LABS: TROPONIN I < 0.012 ng/mL
[2020-07-03 01:10] LABS: A TYPE INFLUENZA AG NEGATIVE (NEGATIVE); B INFLUENZA AG NEGATIVE (NEGATIVE)
--- NOTE | 2020-07-03 08:52 | EKG REPORT ---
SEVERITY:- BORDERLINE ECG - SINUS RHYTHM PROBABLE LEFT ATRIAL ABNORMALITY BORDERLINE LEFT AXIS DEVIATION : Confirmed by: Cesar Ayala MD 03-Jul-2020 08:50:59
[2020-07-03] MEDS: IPRATROPIUM/ALBUTEROL 0.5-2.5 MG/3 ML AMPUL NEB SCH ×5 (09:09→20:12)
[2020-07-03] MEDS ORDERED: (PENDING PHARMACY ID) (Tiotropium Bromide [Spiriva Respimat] 2 PUFF) IH SCH (10:00)
[2020-07-03] MEDS ORDERED: MEGESTROL ACETATE PO SCH (10:00)
[2020-07-03] MEDS: ENOXAPARIN SODIUM INJ 40 MG/0.4 ML DISP.SYRIN SUBCUT SCH (10:51)
[2020-07-03] MEDS: AMLODIPINE BESYLATE 10 MG TABLET PO SCH (10:52)
[2020-07-03] MEDS: METOPROLOL TARTRATE 50 MG TABLET PO SCH ×2 (10:53→21:34)
[2020-07-03] MEDS: VALSARTAN 160 MG TABLET PO SCH (10:54)
[2020-07-03] MEDS: UMECLIDINIUM BROMIDE 62.5 MCG/DOSE IH SCH (11:38)
[2020-07-03] MEDS: MEGESTROL ACETATE 20 MG TABLET PO SCH ×2 (11:38→21:34)
--- NOTE | 2020-07-03 13:48 | NEURO WORKBENCH EEG REPORT ---
EEG Report Patient: Mauro Vasquez ID: [id number] Referring Doctor: Rip Diaz DOS: 07/03/2020 Medications: clonidine, diovan, lopressor, megestrol acetate, spriva respimat, norvasc History This is a 84 year old right handed female with a history of dementia, left hand paralysis, CHF, HTN, COPD, asthma, bronchitis, pneumonia, gall bladder disease, anemia, cigarette smoking, arthritis, hysterectomy, GI disorders who was admitted with LOC. This EEG was requested for possible seizure or syncope. EEG Interpretation This EEG was recorded in the awake state only. The awake EEG is characterized by a poorly-organized background with a poorly-developed and poorly reactive posterior dominant rhythm of ~7 Hz. The remainder of the background was characterized by a combination of theta with some beta and alpha frequencies. Photic stimulation resulted in a moderate driving response. There were no epileptiform abnormalities. The EKG channel was poorly visible with periods that appeared regular. EEG Classification * Generalized background slowing * Poorly organized EEG Impression This EEG is abnormal. It is consistent with diffuse cerebral dysfunction. The EKG channel was poorly visible. INTERPRETING NEUROLOGIST: Diane Stinson MD, FRCPC Board Certified in Neurology, with special qualification in Child Neurology, and in Clinical Neurophysiology [facility]
--- NOTE | 2020-07-03 20:40 | PDOC H&P ---
History of Present Illness Admission Date/PCP: 07/03/20 00:25 BIA CASTANEDA MD History of Present Illness: RONALDO CORADO is a 84 year old female with a history of very severe chronic obs tructive lung disease, idiopathic hypertrophic subaortic stenosis, she was brought to the emergency room by the daughter because she had episode of loss of consciousness, it was transient the history was that the daughter gave her medications but usually she crushes the medication before is giving except metoprolol which is a slow release medication after she gave her metoprolol she noticed that she had a gurgling sound and that the eyes rolled back and the arms were shaking for a few seconds and then she experienced transient loss of consciousness and she came back again fully alert and responsive.she was concerned about this episode so she brought her to the emergency room for evaluation. In the ER she was evaluated, CT of the head was done which was negative, the ER provider felt patient needed to be admitted for observation. EEG was done because of concern.May be decision the EEG was collateralized by a poorly organized background with a poorly developed and poorly reactive pos terior dominant rhythm. There was no epileptiform abnormalities identified. The EEG is abnormal consistent with diffuse cerebral dysfunction Past Medical History Cardiac Medical History: Reports: Hypertension, Other - Idiopathic hypertrophic subaortic stenosis Pulmonary Medical History: Reports: Bronchitis, Chronic Obstructive Pulmonary Disease (COPD), Pneumonia Denies: Tuberculosis Musculoskeltal Medical History: Reports: Arthritis Psychiatric Medical History: Reports: Dementia Denies: Depression Hematology: Reports: Anemia Past Surgical History Past Surgical History: Reports: Hysterectomy, Orthopedic Surgery - R hand carpel tunnel Social History Smoking Status: Current Every Day Smoker Electronic Cigarette use?: No Frequency of Alcohol Use: None Hx Recreational Drug Use: No Drugs: None Hx Prescription Drug Abuse: No Family History Family History: Reviewed & Not Pertinent Parental Family History Reviewed: Yes Children Family History Reviewed: Yes Sibling(s) Family History Reviewed.: Yes Medication/Allergy Home Medications: RX: Megestrol Acetate 10 mg PO BID 01/27/20 RX: Metoprolol Tartrate [Lopressor 50 mg Tablet] 50 mg PO Q12 #180 tablet 01/30/20 RX: Acetaminophen 500 mg PO Q8HP PRN 03/11/20 RX: Polyethylene Glycol 3350 [Miralax Powder 17 gm/Packet] 1 packet PO QAM 0 03/11/20 RX: Amlodipine Besylate [Norvasc 10 mg Tablet] 10 mg PO QAM #90 tablet 04/08/20 RX: Clonidine [Catapres-Tts 3 (0.3 mg/24 Hr) Transderm Patch] 1 each TD Cho@10 #12 patch.tdwk 04/08/20 RX: Valsartan [Diovan 160 mg Tablet] 320 mg PO DAILY #90 tablet 04/08/20 RX: Tiotropium [place] [Spiriva Respimat] 2 puff IH DAILY 07/02/20 Allergies/Adverse Reactions: No Known Drug Allergies Allergy (Verified 03/27/19 16:03) shellfish derived Adverse Reaction (Verified 07/02/20 21:15) Review of Systems Constitutional: ABSENT: chills, fever(s), headache(s), weight gain, weight loss Eyes: ABSENT: visual disturbances Ears: ABSENT: hearing changes Cardiovascular: ABSENT: chest pain, dyspnea on exertion, edema, orthropnea, palpitations Respiratory: ABSENT: cough, hemoptysis Gastrointestinal: ABSENT: abdominal pain, constipation, diarrhea, hematemesis, hematochezia, nausea, vomiting Genitourinary: ABSENT: dysuria, hematuria Musculoskeletal: ABSENT: joint swelling Integumentary: ABSENT: rash, wounds Neurological: ABSENT: abnormal gait, abnormal speech, confusion, dizziness, focal weakness, syncope Psychiatric: ABSENT: anxiety, depression, homidical ideation, suicidal ideation Endocrine: ABSENT: cold intolerance, heat intolerance, menstrual abnormalities, polydipsia, polyuria Hematologic/Lymphatic: ABSENT: easy bleeding, easy bruising, lymphadenopathy Physical Exam Vital Signs: Temp Pulse Resp BP Pulse Ox 98.5 F 96 39 H 158/87 H 98 07/03/20 16:00 07/03/20 18:59 07/03/20 17:00 07/03/20 16:59 07/03/20 17:00 Intake & Output 07/02/20 07/03/20 07/04/20 06:59 06:59 06:59 Intake Total 474 Output Total 0 1 Balance 0 473 Weight 50.4 kg General appearance: PRESENT: no acute distress Head exam: PRESENT: atraumatic, normocephalic Eye exam: PRESENT: conjunctiva pink, EOMI, PERRLA Ear exam: PRESENT: normal external ear exam Mouth exam: PRESENT: moist, tongue midline Neck exam: PRESENT: full ROM Respiratory exam: PRESENT: clear to auscultation olivier Cardiovascular exam: PRESENT: RRR, +S1, +S2 Vascular exam: PRESENT: normal capillary refill GI/Abdominal exam: PRESENT: normal bowel sounds, soft Rectal exam: PRESENT: deferred Neurological exam: PRESENT: alert Psychiatric exam: PRESENT: appropriate affect, normal mood Skin exam: PRESENT: dry, intact, warm Results Laboratory Results: 07/02/20 23:01 07/02/20 21:12 07/02/20 07/02/20 07/02/20 21:12 21:12 23:01 WBC Cancelled RBC Cancelled Hgb Cancelled Hct Cancelled MCV Cancelled MCH Cancelled MCHC Cancelled RDW Cancelled Plt Count Cancelled Seg Neutrophils % Cancelled VBG pH 7.43 H VBG pCO2 45.8 VBG HCO3 29.9 VBG Base Excess 4.9 Sodium 143.4 Potassium 3.8 Chloride 103 Carbon Dioxide 30 Anion Gap 10 BUN 34 H Creatinine 0.86 Est GFR ( Amer) > 60 Glucose 142 H Calcium 10.8 H Phosphorus 3.7 Magnesium 2.5 H Total Bilirubin 0.4 AST 24 Alkaline Phosphatase 71 Total Protein 8.2 Albumin 4.3 Lipase 186.9 07/02/20 23:01 WBC 9.3 RBC 4.25 Hgb 11.3 L Hct 33.8 L MCV 80 MCH 26.7 L MCHC 33.5 RDW 16.2 H Plt Count 272 Seg Neutrophils % 67.4 VBG pH VBG pCO2 VBG HCO3 VBG Base Excess Sodium Potassium Chloride Carbon Dioxide Anion Gap BUN Creatinine Est GFR ( Amer) Glucose Calcium Phosphorus Magnesium Total Bilirubin AST Alkaline Phosphatase Total Protein Albumin Lipase 07/02/20 21:12 Troponin I < 0.012 NT-Pro-B Natriuret Pep 433 Impressions: Chest X-Ray 07/02/20 21:56 IMPRESSION: COPD. Lungs are clear copyright 2011 [employer]- All Rights Reserved Head CT 07/02/20 21:57 IMPRESSION: 1. No acute intracranial abnormality is seen. Generalized atrophy and moderately advanced small vessel ischemic changes are again noted as before. 2. Mild paranasal sinus mucosal thickening without air-fluid level. TECHNICAL DOCUMENTATION: Quality ID # 436: Final reports with documentation of one or more dose reduction techniques (e.g., Automated exposure control, adjustment of the mA and/or kV according to patient size, use of iterative reconstruction technique) copyright 2011 [employer]- All Rights Reserved Assessment & Plan - Diagnosis (1) Loss of consciousness Is this a current diagnosis for this admission?: Yes Plan: Patient presented with transient loss of consciousness, differential diagnosis include, seizure, syncope, EEG did not demonstrate any seizure activities, it was abnormal, global dysfunction of the brain. She has a history of idiopathic hypertrophic subaortic stenosis, this condition increases risk of syncope spell, she apparently had episode of syncope, she is not a candidate for intervention for this condition because of underlying problems including very severe COPD, dementia, severe deconditioning (2) IHSS (idiopathic hypertrophic subaortic stenosis) Is this a current diagnosis for this admission?: Yes (3) COPD (chronic obstructive pulmonary disease) Qualifiers: COPD type: unspecified COPD Qualified Code(s): J44.9 - Chronic obstructive pulmonary disease, unspecified Is this a current diagnosis for this admission?: Yes - Time Time Spent: Greater than 70 Minutes Medications reviewed and adjusted accordingly: Yes Anticipated Discharge Disposition: Home, Self Care Anticipated Discharge Timeframe: within 24 hours - Inpatient Certification Based on my medical assessment, after consideration of the patient's comorbidities, presenting symptoms, or acuity I expect that the services needed warrant INPATIENT care.: Yes I certify that my determination is in accordance with my understanding of Medicare's requirements for reasonable and necessary INPATIENT services [42 CFR 412.3e].: Yes
[2020-07-04] MEDS: IPRATROPIUM/ALBUTEROL 0.5-2.5 MG/3 ML AMPUL NEB SCH ×3 (01:19→14:02)
[2020-07-04] MEDS: AMLODIPINE BESYLATE 10 MG TABLET PO SCH (09:07)
[2020-07-04] MEDS: VALSARTAN 160 MG TABLET PO SCH (09:07)
[2020-07-04] MEDS: METOPROLOL TARTRATE 50 MG TABLET PO SCH (09:07)
[2020-07-04] MEDS: MEGESTROL ACETATE 20 MG TABLET PO SCH (09:08)
[2020-07-04] MEDS: ENOXAPARIN SODIUM INJ 40 MG/0.4 ML DISP.SYRIN SUBCUT SCH (09:08)
[2020-07-04] MEDS: UMECLIDINIUM BROMIDE 62.5 MCG/DOSE IH SCH (09:08)
[2020-07-04 12:40] VITALS: BP 159/87
--- NOTE | 2020-07-04 12:45 | PDOC DISCHARGE SUMMARY ---
Impression - Admit/DC Date/PCP Admission Date/Primary Care Provider: 07/03/20 00:25 BIA CASTANEDA MD Discharge Date: 07/04/20 - Discharge Diagnosis (1) Loss of consciousness Is this a current diagnosis for this admission?: Yes (2) IHSS (idiopathic hypertrophic subaortic stenosis) Is this a current diagnosis for this admission?: Yes (3) COPD (chronic obstructive pulmonary disease) Is this a current diagnosis for this admission?: Yes - Additional Information Discharge Diet: Regular Discharge Activity: Activity As Tolerated Referrals: BIA CASTANEDA MD [Primary Care Provider] - Follow up as needed Home Medications: RX: Megestrol Acetate 10 mg PO BID 01/27/20 RX: Metoprolol Tartrate [Lopressor 50 mg Tablet] 50 mg PO Q12 #180 tablet 01/30/20 RX: Acetaminophen 500 mg PO Q8HP PRN 03/11/20 RX: Polyethylene Glycol 3350 [Miralax Powder 17 gm/Packet] 1 packet PO QAM 03/11/20 RX: Amlodipine Besylate [Norvasc 10 mg Tablet] 10 mg PO QAM #90 tablet 04/08/20 RX: Clonidine [Catapres-Tts 3 (0.3 mg/24 Hr) Transderm Patch] 1 each TD Cho@10 #12 patch.tdwk 04/08/20 RX: Valsartan [Diovan 160 mg Tablet] 320 mg PO DAILY #90 tablet 04/08/20 RX: Tiotropium [place] [Spiriva Respimat] 2 puff IH DAILY 07/02/20 History of Present Illiness History of Present Illness: RONALDO CORADO is a 84 year old female with a history of very severe chronic obstructive lung disease, idiopathic hypertrophic subaortic stenosis, she was brought to the emergency room by the daughter because she had episode of loss of consciousness, it was transient the history was that the daughter gave her medications but usually she crushes the medication before is giving except metoprolol which is a slow release medication after she gave her metoprolol she noticed that she had a gurgling sound and that the eyes rolled back and the arms were shaking for a few seconds and then she experienced transient loss of consciousness and she came back again fully alert and responsive.she was concerned about this episode so she brought her to the emergency room for evaluation. In the ER she was evaluated, CT of the head was done which was negative, the ER provider felt patient needed to be admitted for observation. EEG was done because of concern.May be decision the EEG was collateralized by a poorly organized background with a poorly developed and poorly reactive posterior dominant rhythm. There was no epileptiform abnormalities identified. The EEG is abnormal consistent with diffuse cerebral dysfunction Hospital Course Hospital Course: Patient was admitted for observation and management of transient loss of consciousness. EEG was done, no epileptiform foci identified. She remained stable through hospital stay, she was brought in for observation, blood pressure management was achieved with the regular medication for blood pressure. She will be discharge home today Physical Exam Vital Signs: Temp Pulse Resp BP Pulse Ox 99.1 F 75 18 159/87 H 100 07/04/20 12:38 07/04/20 12:38 07/04/20 12:38 07/04/20 12:38 07/04/20 12:38 Intake & Output 07/03/20 07/04/20 07/05/20 06:59 06:59 05:59 Intake Total 734 360 Output Total 0 1 Balance 0 733 360 Weight 50.4 kg 47.9 kg General appearance: PRESENT: no acute distress Eye exam: PRESENT: PERRLA Respiratory exam: PRESENT: clear to auscultation olivier Cardiovascular exam: PRESENT: +S1, +S2 GI/Abdominal exam: PRESENT: soft Neurological exam: PRESENT: alert, CN II-XII grossly intact Results Laboratory Results: WBC 9.3 10^3/uL (4.0-10.5) 07/02/20 23:01 RBC 4.25 10^6/uL (3.72-5.28) 07/02/20 23:01 Hgb 11.3 g/dL (12.0-15.5) L 07/02/20 23:01 Hct 33.8 % (36.0-47.0) L 07/02/20 23:01 MCV 80 fl (80-97) 07/02/20 23:01 MCH 26.7 pg (27.0-33.4) L 07/02/20 23:01 MCHC 33.5 g/dL (32.0-36.0) 07/02/20 23:01 RDW 16.2 % (11.5-14.0) H 07/02/20 23:01 Plt Count 272 10^3/uL (150-450) 07/02/20 23:01 Lymph % (Auto) 19.9 % (13-45) 07/02/20 23: Lipscomb % (Auto) 9.0 % (3-13) 07/02/20 23:01 Eos % (Auto) 3.3 % (0-6) 07/02/20 23: Baso % (Auto) 0.4 % (0-2) 07/02/20 23:01 Absolute Neuts (auto) 6.2 10^3/uL (1.7-8.2) 07/02/20 23: Absolute Lymphs (auto) 1.8 10^3/uL (0.5-4.7) 07/02/20 23: Absolute Monos (auto) 0.8 10^3/uL (0.1-1.4) 07/02/20 23:01 Absolute Eos (auto) 0.3 10^3/uL (0.0-0.6) 07/02/20 23:01 Absolute Basos (auto) 0.0 10^3/uL (0.0-0.2) 07/02/20 23: Seg Neutrophils % 67.4 % (42-78) 07/02/20 23: Platelet Estimate Cancelled 07/02/20 21:12 VBG pH 7.43 (7.30-7.42) H 07/02/20 23:01 VBG pCO2 45.8 mmHg (35-63) 07/02/20 23:01 VBG HCO3 29.9 mmol/L (20-32) 07/02/20 23:01 VBG Base Excess 4.9 mmol/L 07/02/20 23:01 Sodium 143.4 mmol/L (137-145) 07/02/20 21:12 Potassium 3.8 mmol/L (3.6-5.0) 07/02/20 21:12 Chloride 103 mmol/L (98-107) 07/02/20 21:12 Carbon Dioxide 30 mmol/L (22-30) 07/02/20 21:12 Anion Gap 10 (5-19) 07/02/20 21:12 BUN 34 mg/dL (7-20) H 07/02/20 21:12 Creatinine 0.86 mg/dL (0.52-1.25) 07/02/20 21:12 Est GFR ( Amer) > 60 (>60) 07/02/20 21:12 Est GFR (MDRD) Non-Af > 60 (>60) 07/02/20 21:12 Glucose 142 mg/dL (75-110) H 07/02/20 21:12 POC Glucose 145 mg/dL (70-110) H 07/02/20 20:57 Calcium 10.8 mg/dL (8.4-10.2) H 07/02/20 21:12 Phosphorus 3.7 mg/dL (2.5-4.5) 07/02/20 21:12 Magnesium 2.5 mg/dL (1.6-2.3) H 07/02/20 21:12 Total Bilirubin 0.4 mg/dL (0.2-1.3) 07/02/20 21:12 Direct Bilirubin 0.3 mg/dL (0.0-0.4) 07/02/20 21:12 Neonat Total Bilirubin Not Reportable 07/02/20 21:12 Neonat Direct Bilirubin Not Reportable 07/02/20 21:12 Neonat Indirect Bili Not Reportable 07/02/20 21:12 AST 24 U/L (14-36) 07/02/20 21:12 ALT 15 U/L (<35) 07/02/20 21:12 Alkaline Phosphatase 71 U/L (38-126) 07/02/20 21:12 Troponin I < 0.012 ng/mL 07/02/20 21:12 NT-Pro-B Natriuret Pep 433 pg/mL (<450) 07/02/20 21:12 Total Protein 8.2 g/dL (6.3-8.2) 07/02/20 21:12 Albumin 4.3 g/dL (3.5-5.0) 07/02/20 21:12 Lipase 186.9 U/L (23-300) 07/02/20 21:12 COVID-19 Source See comment 07/02/20 23:15 COVID-19 (JEVON) Not Detected (Not Detect) 07/02/20 23:15 Influenza A (Rapid) NEGATIVE (NEGATIVE) 07/03/20 00:35 Influenza B (Rapid) NEGATIVE (NEGATIVE) 07/03/20 00:35 Slides for Path Review Cancelled 07/02/20 21:12 07/02/20 21:12 Troponin I < 0.012 NT-Pro-B Natriuret Pep 433 Impressions: Chest X-Ray 07/02/20 21:56 IMPRESSION: COPD. Lungs are clear copyright 2010 [employer]- All Rights Reserved Head CT 07/02/20 21:57 IMPRESSION: 1. No acute intracranial abnormality is seen. Generalized atrophy and moderately advanced small vessel ischemic changes are again noted as before. 2. Mild paranasal sinus mucosal thickening without air-fluid level. TECHNICAL DOCUMENTATION: Quality ID # 436: Final reports with documentation of one or more dose reduction techniques (e.g., Automated exposure control, adjustment of the mA and/or kV according to patient size, use of iterative reconstruction technique) copyright 2010 [employer]- All Rights Reserved Stroke Is this a Stroke Patient?: No Acute Heart Failure Is this a Heart Failure Patient?: No
[2020-07-05] MEDS ORDERED: CLONIDINE 0.3 MG/24 HR PATCH.TDWK TD SCH (10:00)
== END 2020-07-04 14:07 | disposition home or self-care (01) ==
LOC: ER 20:49 → EH 07-03 00:25 → ICU 07-03 03:53 → 3N 07-03 19:09
PROVIDERS: ADMIT Internal Medicine; ATTEND Internal Medicine
DX: R55 Syncope and collapse (principal); I42.1 Obstructive hypertrophic cardiomyopathy; J44.9 Chronic obstructive pulmonary disease, unspecified; F03.90 Unspecified dementia, unspecified severity, without behavioral disturbance, psychotic disturbance, mood disturbance, and anxiety; I11.0 Hypertensive heart disease with heart failure; I50.9 Heart failure, unspecified; Z86.73 Personal history of transient ischemic attack (TIA), and cerebral infarction without residual deficits; F17.200 Nicotine dependence, unspecified, uncomplicated; Z79.899 Other long term (current) drug therapy; Z20.828 Contact with and (suspected) exposure to other viral communicable diseases
CPT/HCPCS: 95819 ×2; 93005; 99285; 36415; 82962; 83690; 83735; 84100; 85025; 80053; 84484; 82803; 87804; 83880; 71045; 70450; 93010; 94640 ×3; G0378 ×2; U0003; A9270 ×8; J1650 ×2; J3490; C9803; 87635